=== PATIENT | female | born 1935 | race Caucasian/White ===

== ENCOUNTER 2019-04-23 19:40 | Emergency (ER) | payer OTHER ==
[2019-04-23] MEDS ORDERED: LIDOCAINE 1% MPF 30 ML VIAL ONE (20:18)
[2019-04-23] MEDS ORDERED: TETANUS & DIPHTHERIA TOX,ADULT 0.5 ML VIAL ONE (20:19)
[2019-04-23] MEDS ORDERED: IBUPROFEN 400 MG TAB ONE (20:40)
--- NOTE | 2019-04-23 20:53 | RAD REPORT ---
EXAM DESCRIPTION: RAD - Tib Fib Right - 04/23/2019 8:48 pm CLINICAL HISTORY: laceration right leg;Pain COMPARISON: No comparisons FINDINGS: Total knee arthroplasty is present. Hardware is present about the ankle. No hardware compl ication seen. No fracture apparent. No radiopaque foreign body seen.
--- NOTE | 2019-04-23 22:10 | EDPHYS ---
Physician Documentation [facility] Name: Rowan Green Age: 83 yrs Sex: Female : 1935 Arrival Date: 04/23/2019 Time: 19:50 Bed 4 Private MD: ED Physician Balaji Gomez HPI: 04/22 20:33 This 83 yrs old Female presents to ER via EMS with complaints of Laceration, pkl Fall Injury. 20:33 The patient presents with an injury, a laceration, 5 cm(s). The complaints affect the pkl right leg. Context: resulted from the patient falling, cut right leg on unknown object. Onset: The symptoms/episode began/occurred just prior to arrival, 1 hour(s) ago. Associated signs and symptoms: The patient has no apparent associated signs or symptoms. Historical: - Allergies: 20:07 PENICILLINS; jd3 20:07 Codeine; jd3 - Home Meds: 20:07 amlodipine oral [Active]; ibuprofen Oral [Active]; clopidogrel oral oral [Active]; jd3 desloratadine oral oral [Active]; Flonase Allergy Relief nasal nasal [Active]; Metformin Oral [Active]; ranitidine Oral [Active]; torsemide oral oral [Active]; Tramadol Oral [Active]; Bisacodyl Oral [Active]; pramipexole oral oral [Active]; - Immunization history:: Adult Immunizations up to date. - Social history:: Smoking status: Patient denies any tobacco usage or history of. - Immunization history: Last tetanus immunization: unknown. ROS: 20:33 Eyes: Negative for injury, pain, redness, and discharge, ENT: Negative for injury, pkl pain, and discharge, Neck: Negative for injury, pain, and swelling, Cardiovascular: Negative for chest pain, palpitations, and edema, Respiratory: Negative for shortness of breath, cough, wheezing, and pleuritic chest pain, Abdomen/GI: Negative for abdominal pain, nausea, vomiting, diarrhea, and constipation, Back: Negative for injury and pain, : Negative for injury, bleeding, discharge, and swelling, Neuro: Negative for headache, weakness, numbness, tingling, and seizure. 20:33 MS/extremity: Positive for laceration, pain, of the right leg. 20:33 Neuro: Negative for altered mental status, loss of consciousness. Exam: 21:44 Head/Face: Normocephalic, atraumatic. Eyes: Pupils equal round and reactive to light, pkl extra-ocular motions intact. Lids and lashes normal. Conjunctiva and sclera are non-icteric and not injected. Cornea within normal limits. Periorbital areas with no swelling, redness, or edema. ENT: Nares patent. No nasal discharge, no septal abnormalities noted. Tympanic membranes are normal and external auditory canals are clear. Oropharynx with no redness, swelling, or masses, exudates, or evidence of obstruction, uvula midline. Mucous membranes moist. Neck: Trachea midline, no thyromegaly or masses palpated, and no cervical lymphadenopathy. Supple, full range of motion without nuchal rigidity, or vertebral point tenderness. No Meningismus. Chest/axilla: Normal chest wall appearance and motion. Nontender with no deformity. No lesions are appreciated. Cardiovascular: Regular rate and rhythm with a normal S1 and S2. No gallops, murmurs, or rubs. Normal PMI, no JVD. No pulse deficits. Respiratory: Lungs have equal breath sounds bilaterally, clear to auscultation and percussion. No rales, rhonchi or wheezes noted. No increased work of breathing, no retractions or nasal flaring. Abdomen/GI: Soft, non-tender, with normal bowel sounds. No distension or tympany. No guarding or rebound. No evidence of tenderness throughout. Back: No spinal tenderness. No costovertebral tenderness. Full range of motion. 21:44 Musculoskeletal/extremity: Extremities: grossly normal except: noted in the right shoulder: pain, noted in the right leg: pain, laceration. 21:44 Neuro: Orientation: is normal, Mentation: is normal, Cranial nerves: grossly normal, Motor: is normal. Vital Signs: 19:54 BP 143 / 76; Pulse 90; Resp 17 S; Temp 98.5(O); Pulse Ox 98% on R/A; Weight 90.72 kg jd3 (R); Height 5 ft. 2 in. (157.48 cm) (R); Pain 8/10; 20:41 BP 113 / 71; Pulse 89; Resp 17 S; Pulse Ox 99% on R/A; Pain 8/10; jd3 21:42 BP 113 / 67; Pulse 87; Resp 17 S; Pulse Ox 99% on R/A; jd3 23:11 BP 118 / 85; Pulse 85; Resp 16 S; Pulse Ox 99% on R/A; Pain 8/10; jd3 04/23 01:02 BP 117 / 75; Pulse 89; Resp 17 S; Pulse Ox 99% on R/A; Pain 0/10; jd3 04/22 19:54 Body Mass Index 36.58 (90.72 kg, 157.48 cm) jd3 [place] Coma Score: 04/22 20:09 Eye Response: spontaneous(4). Verbal Response: oriented(5). Motor Response: obeys jd3 commands(6). Total: 15. 23:11 Eye Response: spontaneous(4). Verbal Response: oriented(5). Motor Response: obeys jd3 commands(6). Total: 15. Trauma Score (Adult): 20:09 Eye Response: spontaneous(1); Verbal Response: oriented(1); Motor Response: obeys jd3 commands(2); Systolic BP: > 89 mm Hg(4); Respiratory Rate: 10 to 29 per min(4); [place] Score: 15; Trauma Score: 12 23:11 Eye Response: spontaneous(1); Verbal Response: oriented(1); Motor Response: obeys jd3 commands(2); Systolic BP: > 89 mm Hg(4); Respiratory Rate: 10 to 29 per min(4); [place] Score: 15; Trauma Score: 12 Laceration: 21:46 Wound Repair of 5cm ( 2.0in ) subcutaneous laceration to right leg. Minimal bleeding pkl noted.. Distal neuro/vascular/tendon intact. Anesthesia: Local anesthetic administered with 8 mls of 1% lidocaine. Wound prep: Extensive cleansing by me. Skin closed with 7 3-0 Prolene using simple sutures and sterile technique. Dressed with Neosporin, 4x4's, pressure dressing. Patient tolerated well. MDM: 19:50 Patient medically screened. pkl 21:46 Data reviewed: vital signs, nurses notes, radiologic studies, plain films. pkl 04/23 00:10 Order name: CBC with Diff jd3 04/23 00:46 Order name: CBC with Automated Diff; Complete Time: 00:54 EDMS 04/22 20:11 Order name: Tib Fib Right XRAY pkl 04/22 20:58 Order name: RAD; Complete Time: 21:28 EDMS 04/22 21:29 Order name: Shoulder Right (2 View) XRAY pkl 04/22 20:22 Order name: Dressing - Wound; Complete Time: 21:40 jd3 04/22 20:22 Order name: Gloves, Sterile; Complete Time: 20:23 jd3 04/22 20:22 Order name: Setup Suture Tray; Complete Time: 20:23 jd3 Administered Medications: 20:23 Drug: Tetanus-Diphtheria Toxoid Adult 0.5 ml {Scuba Diving Teacher: Exterity. Exp: jd3 01/15/2021. Lot #: [id number]. } Route: IM; Site: left deltoid; 21:20 Follow up: Response: No adverse reaction jd3 20:39 Drug: Motrin 400 mg Route: PO; jd3 21:30 Follow up: Response: No adverse reaction jd3 21:20 Drug: Lidocaine (1 %) 1 vials {Note: given by Dr. Gomez.} Volume: 20 ml; Route: jd3 Infiltration; 21:40 Follow up: Response: No adverse reaction jd3 22:58 Drug: UltRAM 50 mg Route: PO; jd3 23:40 Follow up: Response: No adverse reaction jd3 Disposition: 04/23/19 22:09 Discharged to Home. Impression: Laceration right leg. Contusion right shoulder. S/P Fall. - Condition is Stable. - Prescriptions for Ultram 50 mg Oral Tablet - take 1 tablet by ORAL route every 6 hours As needed; 12 tablet. - Medication Reconciliation Form, Thank You Letter, Antibiotic Education, Prescription Opioid Use form. - Follow up: Private Physician; When: 7 - 10 days; Reason: Wound Recheck, Staple/Suture removal, Re-evaluation by your physician. - Problem is new. - Symptoms have improved. Signatures: Dispatcher [employer] Balaji Hendrickson MD MD pkl Davies, Jonathon, RN RN jd3 Corrections: (The following items were deleted from the chart) 04/23 01:04 04/22 22:09 04/23/2019 22:09 Discharged to Home. Impression: Laceration right leg. jd3 Contusion right shoulder. S/P Fall. Condition is Stable. Forms are Medication Reconciliation Form, Thank You Letter, Antibiotic Education, Prescription Opioid Use. Follow up: Private Physician; When: 7 - 10 days; Reason: Wound Recheck, Staple/Suture removal, Re-evaluation by your physician. Problem is new. Symptoms have improved. pkl
--- NOTE | 2019-04-23 22:10 | ER ---
Nurse's Notes [facility] Name: Rowan Green Age: 83 yrs Sex: Female : 1935 Arrival Date: 04/23/2019 Time: 19:50 Bed 4 Private MD: Diagnosis: Laceration right leg. Contusion right shoulder. S/P Fall Presentation: 04/22 19:52 Chief complaint: EMS states: "the pt reported tripping and falling today. she denies jd3 hitting her head and or any injuries other then a laceration to the right lower leg that is about 1 cm in length, but deep. we wrapped it with an occlusive dressing, but it wanted to bleed through it.". Coronavirus screen: The patient has NOT traveled to a country currently being monitored by the CDC within the last 14 days. The patient has NOT had contact with any known and/or suspected case of coronavirus. Proceed with normal triage procedures. Ebola Screen: Patient negative for fever greater than or equal to 101.5 degrees Fahrenheit, and additional compatible Ebola Virus Disease symptoms. Complicating Factors: There are no complicating factors for this patient. Initial Sepsis Screen: Does the patient meet any 2 criteria? No. Patient's initial sepsis screen is negative. Does the patient have a suspected source of infection? No. Patient's initial sepsis screen is negative. Risk Assessment: Do you want to hurt yourself or someone else? Patient reports no desire to harm self or others. 19:52 Method Of Arrival: EMS: [place] [id number] 19:52 Acuity: MARQUES 3 [facility] 20:07 Care prior to arrival: wound care. Mechanism of Injury: Fall from standing position. [facility] Trauma event details: Injury occurred in the [facility], Injury occurred: at home. Injury occurred: April 23, 2019. 20:09 Transition of care: patient was received from another setting of care (long-term care [facility] facility), [facility]. 20:10 Onset of symptoms was April 23, 2019. [facility] Trauma Activation: Alert Physician: ED Physician; Name: Jason; Notified At: 19:38; Arrived At: 19:38 Physician: General Surgeon; Name: ; Notified At: ; Arrived At: Physician: Radiology; Name: dasia dhillon; Notified At: 19:38; Arrived At: 19:38 Physician: Respiratory; Name: ; Notified At: ; Arrived At: Physician: Lab; Name: ; Notified At: ; Arrived At: Historical: - Allergies: 20:07 PENICILLINS; jd3 20:07 Codeine; jd3 - Home Meds: 20:07 amlodipine oral [Active]; ibuprofen Oral [Active]; clopidogrel oral oral [Active]; jd3 desloratadine oral oral [Active]; Flonase Allergy Relief nasal nasal [Active]; Metformin Oral [Active]; ranitidine Oral [Active]; torsemide oral oral [Active]; Tramadol Oral [Active]; Bisacodyl Oral [Active]; pramipexole oral oral [Active]; - Immunization history:: Adult Immunizations up to date. - Social history:: Smoking status: Patient denies any tobacco usage or history of. - Immunization history: Last tetanus immunization: unknown. Screenin:10 Abuse screen: Denies threats or abuse. Nutritional screening: No deficits noted. jd3 Tuberculosis screening: No symptoms or risk factors identified. Fall Risk Ambulatory Aid- None/Bed Rest/Nurse Assist (0 pts). Gait- Normal/Bed Rest/Wheelchair (0 pts) Mental Status- Oriented to own ability (0 pts). Total [place] Fall Scale indicates No Risk (0-24 pts). Primary Survey: 19:57 NO uncontrolled hemorrhage observed. A: The patient is alert. Airway: patent, No jd3 supplemental oxygen in use on arrival. Oral cavity: clear, Trachea midline. Breathing/Chest: Respiratory pattern: regular, Respiratory effort: spontaneous, Breath sounds: clear, bilaterally. Chest inspection: symmetrical rise and fall of the chest. Circulation: Heart tones present. Pulses: palpable right radial artery, right dorsalis pedis artery, left radial artery and left dorsalis pedis artery. Skin color: pink, Skin temperature: warm. Disability Alert. Exposure/Environment: All clothing and personal items were removed. Forensic evidence collection is not deemed to be indicated at this time. Items placed in patient belonging bag. There is no evidence of uncontrolled external bleeding. Obvious injury(ies) are noted at this time: laceration noted to right lower leg. A warming method has been applied: A warm blanket has been provided to the patient. 20:33 Reassessment Airway Airway Patent Oxygen No O2 Oral cavity Clear Trachea Midline jd3 Breathing/Chest Respiratory pattern Regular Respiratory effort Spontaneous Unlabored Breath sounds Clear Chest inspection Symmetrical Circulation Heart tones Present Pulses Palpable Color [place] Temperature Warm Disability Alert. Secondary Survey: 19:59 HEENT: No deficits noted. Gastrointestinal: Abdomen is soft, non-distended, Bowel jd3 sounds present in all quadrants. Palpation No deficit noted. : No signs and/or symptoms were reported regarding the genitourinary system. Musculoskeletal: Circulation, motion, and sensation intact. Range of motion: intact in all extremities. Assessment: 19:55 General: Appears in no apparent distress. uncomfortable, Behavior is calm, cooperative, jd3 appropriate for age. Pain: Complains of pain in right xie Quality of pain is described as aching, tender. Neuro: Level of Consciousness is awake, alert, obeys commands, Oriented to person, place, time, situation. EENT: No signs and/or symptoms were reported regarding the EENT system. Cardiovascular: Denies chest pain, Heart tones S1 S2 present Capillary refill < 3 seconds Patient's skin is warm and dry. Respiratory: Airway is patent Respiratory effort is even, unlabored, Respiratory pattern is regular, symmetrical, Breath sounds are clear bilaterally. Denies cough, shortness of breath. GI: No signs and/or symptoms were reported involving the gastrointestinal system. Abdomen is round non-distended, Bowel sounds present X 4 quads. Abd is soft and non tender X 4 quads. Patient currently denies abdominal pain, diarrhea, nausea, vomiting. : No signs and/or symptoms were reported regarding the genitourinary system. Derm: Skin is intact, Skin is dry, Skin is pale, Skin temperature is warm. Musculoskeletal: Circulation, motion, and sensation intact. Range of motion: intact in all extremities, Swelling present in right leg and left leg. 19:58 Reassessment: vineet bandage applied to wound. awaiting X-ray. jd3 20:11 Injury Description: Laceration sustained to right xie is clean, 2.6 to 7.5 cm long, jd3 bleeding moderately, is bleeding moderately. 20:40 Reassessment: Patient appears in no apparent distress at this time. No changes from jd3 previously documented assessment. Patient and/or family updated on plan of care and expected duration. Pain level reassessed. Patient is alert, oriented x 3, equal unlabored respirations, skin warm/dry/pink. 21:41 Reassessment: Patient appears in no apparent distress at this time. Patient and/or jd3 family updated on plan of care and expected duration. Pain level reassessed. Patient is alert, oriented x 3, equal unlabored respirations, skin warm/dry/pink. bleeding stopped with Dr. Gomez suturing. Patient states feeling better. 23:00 Reassessment: Patient appears in no apparent distress at this time. Patient and/or jd3 family updated on plan of care and expected duration. Pain level reassessed. Patient is alert, oriented x 3, equal unlabored respirations, skin warm/dry/pink. reporting continuing pain. provider notified. medicated as ordered, see MAR. dressing clean dry and intact. awaiting family for discharge back to [facility]. 23:58 Reassessment: Patient appears in no apparent distress at this time. Patient and/or jd3 family updated on plan of care and expected duration. Pain level reassessed. Patient is alert, oriented x 3, equal unlabored respirations, skin warm/dry/pink. Patient states feeling better. 04/23 00:12 Reassessment: Patient appears in no apparent distress at this time. Patient and/or jd3 family updated on plan of care and expected duration. Pain level reassessed. Patient is alert, oriented x 3, equal unlabored respirations, skin warm/dry/pink. family at bedside discussing plan of care with Dr. Gomez. new orders received. awaiting lab results before discharge. Patient states feeling better. 01:03 Reassessment: Patient appears in no apparent distress at this time. Patient and/or jd3 family updated on plan of care and expected duration. Pain level reassessed. Patient is alert, oriented x 3, equal unlabored respirations, skin warm/dry/pink. pt assisted to family's vehicle via wheelchair. Patient states feeling better. Vital Signs: 04/22 19:54 BP 143 / 76; Pulse 90; Resp 17 S; Temp 98.5(O); Pulse Ox 98% on R/A; Weight 90.72 kg jd3 (R); Height 5 ft. 2 in. (157.48 cm) (R); Pain 8/10; 20:41 BP 113 / 71; Pulse 89; Resp 17 S; Pulse Ox 99% on R/A; Pain 8/10; jd3 21:42 BP 113 / 67; Pulse 87; Resp 17 S; Pulse Ox 99% on R/A; jd3 23:11 BP 118 / 85; Pulse 85; Resp 16 S; Pulse Ox 99% on R/A; Pain 8/10; jd3 04/23 01:02 BP 117 / 75; Pulse 89; Resp 17 S; Pulse Ox 99% on R/A; Pain 0/10; jd3 03 19:54 Body Mass Index 36.58 (90.72 kg, 157.48 cm) jd3 [place] Coma Score: 04/22 20:09 Eye Response: spontaneous(4). Verbal Response: oriented(5). Motor Response: obeys jd3 commands(6). Total: 15. 23:11 Eye Response: spontaneous(4). Verbal Response: oriented(5). Motor Response: obeys jd3 commands(6). Total: 15. Trauma Score (Adult): 20:09 Eye Response: spontaneous(1); Verbal Response: oriented(1); Motor Response: obeys jd3 commands(2); Systolic BP: > 89 mm Hg(4); Respiratory Rate: 10 to 29 per min(4); [place] Score: 15; Trauma Score: 12 23:11 Eye Response: spontaneous(1); Verbal Response: oriented(1); Motor Response: obeys jd3 commands(2); Systolic BP: > 89 mm Hg(4); Respiratory Rate: 10 to 29 per min(4); [place] Score: 15; Trauma Score: 12 ED Course: 19:50 Patient arrived in ED. aa1 19:50 Balaji Gomez MD is Attending Physician. pkl 19:52 Selvin Evans RN is Primary Nurse. jd3 19:54 Triage completed. jd3 19:55 Arm band placed on. jd3 20:09 Patient maintains SpO2 saturation greater than 95% on room air. jd3 20:10 Patient has correct armband on for positive identification. Placed in gown. Bed in low jd3 position. Call light in reach. Side rails up X2. Pulse ox on. NIBP on. 20:10 Thermoregulation: warm blanket given to patient. jd3 21:20 Assist provider with laceration repair on right xie that was between 2.6 to 7.5 cm jd3 using sutures. Set up tray. Performed by Balaji Gomez MD Dressed with 4X4s, Neosporin, vineet wrap Patient tolerated well. 04/23 00:31 Initial lab(s) drawn, by me, sent to lab. jd3 00:51 Shoulder Right (2 View) XRAY In Process Unspecified. EDMS 01:02 Patient did not have IV access during this emergency room visit. jd3 Administered Medications: 04/22 20:23 Drug: Tetanus-Diphtheria Toxoid Adult 0.5 ml {Web Development Instructor: Oversi. Exp: jd3 01/15/2021. Lot #: [id number]. } Route: IM; Site: left deltoid; 21:20 Follow up: Response: No adverse reaction jd3 20:39 Drug: Motrin 400 mg Route: PO; jd3 21:30 Follow up: Response: No adverse reaction jd3 21:20 Drug: Lidocaine (1 %) 1 vials {Note: given by Dr. Gomez.} Volume: 20 ml; Route: jd3 Infiltration; 21:40 Follow up: Response: No adverse reaction jd3 22:58 Drug: UltRAM 50 mg Route: PO; jd3 23:40 Follow up: Response: No adverse reaction jd3 Intake: 04/23 01:02 PO: 200ml; Total: 200ml. jd3 Output: 01:02 Urine: 200ml (Voided); Total: 200ml. jd3 Outcome: 04/22 22:09 Discharge ordered by . huseyin 04/23 01:02 Discharged to home via wheelchair, with family. jd3 Condition: stable Discharge instructions given to patient, family, Instructed on discharge instructions, follow up and referral plans. medication usage, Demonstrated understanding of instructions, follow-up care, medications, Prescriptions given X 1. Patient's length of stay in the Emergency Department was greater than 2 hours. waiting for results.Patient's length of stay extended due to 01:04 Patient left the ED. jd3 Signatures: Dispatcher [employer] EDCT Gia Pantoja RN RN aa1 Balaji Gomez MD MD pkl Davies, Jonathon, RN RN jd3 Corrections: (The following items were deleted from the chart) 04/22 21:45 19:55 Injury Description: Laceration sustained to right xie is clean, 0.5 to 2.5 cm jd3 long, bleeding moderately, jd3 21:45 20:11 Injury Description: Laceration sustained to right xie is clean, 0.5 to 2.5 cm jd3 long, bleeding moderately, jd3 21:45 21:41 Reassessment: Patient appears in no apparent distress at this time. Patient jd3 and/or family updated on plan of care and expected duration. Pain level reassessed. Patient is alert, oriented x 3, equal unlabored respirations, skin warm/dry/pink. Patient states feeling better. jd3 23:12 23:00 Reassessment: Patient appears in no apparent distress at this time. Patient jd3 and/or family updated on plan of care and expected duration. Pain level reassessed. Patient is alert, oriented x 3, equal unlabored respirations, skin warm/dry/pink. reporting continuing pain. provider notified. medicated as ordered, see MAR. dressing clean dry and intact. jd3 04/23 00:13 04/22 19:55 Derm: Skin is intact, Skin is dry, Skin is normal, Skin temperature is warm jd3 jd3 04/23 00:13 04/22 23:58 Reassessment: Patient appears in no apparent distress at this time. No jd3 changes from previously documented assessment. Patient and/or family updated on plan of care and expected duration. Pain level reassessed. Patient is alert, oriented x 3, equal unlabored respirations, skin warm/dry/pink. jd3 04/23 00:39 04/22 23:58 Reassessment: Patient appears in no apparent distress at this time. No jd3 changes from previously documented assessment. Patient and/or family updated on plan of care and expected duration. Pain level reassessed. Patient is alert, oriented x 3, equal unlabored respirations, skin warm/dry/pink. Patient states feeling better. jd3 04/23 00:39 00:12 Reassessment: family at bedside discussing plan of care with Dr. Gomez. new orders jd3 received. jd3
[2019-04-23] MEDS ORDERED: TRAMADOL HCL 50 MG TAB ONE (23:00)
[2019-04-24 00:45] LABS: Absolute Lymphocytes (CBC) 4.3 K/uL (0.7-4.9); Basophils % 0.8 % (0-1.3); Hematocrit 33.8 % (36.0-45.0); Lymphocytes % 40.8 % (15.3-44.8); MPV 7.7 fL (7.6-11.3); RBC Red Blood Cell Count 3.89 M/uL (3.86-4.86)
[2019-04-24 01:09] VITALS: TEMP 98.5
[2019-04-24 01:10] VITALS: O2SAT 99
[2019-04-24 01:16] VITALS: BP 117/75
--- NOTE | 2019-04-24 09:09 | RAD REPORT ---
EXAM DESCRIPTION: RAD - Shoulder Right 2 View - 04/23/2019 10:09 pm CLINICAL HISTORY: Right shoulder pain FINDINGS: Postsurgical changes involve the right shoulder. Widening of the left AC joint is present. Most likely this is a post surgical change and should be co rrelated clinically. No acute fracture or dislocation noted. Bones are osteoporotic
== END 2019-04-24 01:04 | disposition home or self-care (01) ==
LOC: ER 19:40
PROC: 0JQN0ZZ Repair Right Lower Leg Subcutaneous Tissue and Fascia, Open Approach (ICD-10-PCS; principal; 2019-04-24)
DX: S81.811A Laceration without foreign body, right lower leg, initial encounter (principal); S40.011A Contusion of right shoulder, initial encounter; W19.XXXA Unspecified fall, initial encounter; Y93.9 Activity, unspecified; Y92.9 Unspecified place or not applicable; Z23 Encounter for immunization; Z88.0 Allergy status to penicillin; Z88.5 Allergy status to narcotic agent
CPT/HCPCS: 36415; 85025; 90471; 90714; 99285

== ENCOUNTER 2020-03-18 07:20 | Emergency (ER) | payer OTHER ==
--- OUTSIDE RECORDS SUMMARY | 2020-03-18 07:23 | XMS REPORT | Clinical Summary ---
:1935 Author Organization [facility] Address [address] [place] [address] Care Team Providers Name Role Phone Cuca Bland MD Primary Care Provider Allergies Active Allergy Reactions Severity Noted Date Comments Codeine Other (See Comments) 12/16/2016 Halluci nations Latex Rash Low 10/08/2017 BREAKS OUT Penicillins Anaphylaxis High 12/16/2016 Medications Medication Sig Dispensed Refills Start Date End Date Status buPROPion SR Take 200 mg by 0 Ac tive (WELLBUTRIN SR) 200 MG mouth daily. 12 hr tablet torsemide (DEMADEX) 20 Take 20 mg by 0 Active MG tablet mouth 2 (two) times a day. One in morning, second dose in evening at 1800. POTASSIUM CHLORIDE Take by mouth 2 0 Active (KLOR-CON 10 ORAL) (two) times a day. pramipexole (MIRAPEX) Take 0.125 mg by 0 Active 0.125 MG tablet mouth nightly. amLODIPine (NORVASC) 5 Take 5 mg by 0 Active mg tablet mouth daily. gabapentin (NEURONTIN) Take 300 mg by 0 Active 300 mg capsule mouth nightly. lansoprazole (PREVACID) Take 15 mg by 0 Active 15 MG capsule mouth daily. clopidogrel (PLAVIX) 75 Take 75 mg by 0 Active mg tablet mouth daily. atorvastatin (LIPITOR) Take 20 mg by 0 Active 20 MG tablet mouth daily. Default OP ins metFORMIN (GLUCOPHAGE) Take 1,000 mg by 0 Active 1,000 mg tablet mouth daily with breakfast. FOLIC Take by mouth 0 Active ACID/MULTIVIT-MIN/LUTEI daily. N (CENTRUM SILVER ORAL) desloratadine Take 5 mg by 0 Act mariela (CLARINEX) 5 mg tablet mouth daily. tamsulosin (FLOMAX) 0.4 TAKE ONE CAPSULE 7 capsule 0 8 Active mg capsule BY MOUTH DAILY FOR 7 DAYS Active Problems Problem Noted Date Kidney stones 09/23/2017 Overview: Added automatically from request for destini mclain [id number] Acute UTI (urinary tract infection) 12/27/2016 Surgical History Surgery Date Site/Laterality Comments REPLACEMENT TOTAL KNEE 02/17/1997 - 02/16/1998 ROTATOR CUFF REPAIR 02/17/2001 - Right 02/16/2002 HYSTERECTOMY 02/17/1979 - 02/17/1980 GALLBLADDER SURGERY 02/17/1981 - 02/16/1982 JOINT REPLACEMENT CATARACT EXTRACTION Bilateral EXTRACAPSULAR W/ INTRAOCULAR LENS IMPLANTATION BLADDER SURGERY US PICC LINE VASCULAR right arm INSERTION CYSTO WITH URETEROSCOPY 10/14/2017 Bilateral Procedur e: CYSTO WITH BILATERAL URETER OSCOPY, STONE EXTRACTION WITH BASKET, STENT PL ACEMENT; Surgeon: Haley bonilla MD; Location: [facility]; Service: Urology ; Laterality: Bila teral; Medical devices from this surgery are in the Implants section . Medical History Medical History Date Comments Colitis 2014 Shingles 2014 Urinary incontinence UTI (urinary tract infection) Hypertension Anticoagulated Wears glasses Wears dentures UPPER Hiatal hernia GERD (gastroesophageal reflux disease) Renal calculi PONV (postoperative nausea and vomiting) Depression Immunizations up to date Exercises rarely WALKS WITH WALKER, Ankle edema, bilateral Valadez catheter in place Family History Medical History Relation Name Comments Diabetes Brother Appendicitis Father Arthritis Mother Diabetes Mother No Known Problems Sister Relation Name Status Comments Brother Alive Father Mother Sister Alive Social History Tobacco Use Types Packs/Day Years Used Date Never Smoker Smokeless Tobacco: Never Used Alcohol Use Drinks/Week oz/Week Comments No Sex Assigned at Date Recorded Not on file Last Filed Vital Signs Not on file Plan of Treatment Health Maintenance Due Date Last Done Comments COVID-19 VACCINE (1 of 2) 1952 SHINGLES VACCINES (#1) 1986 65+ PNEUMOCOCCAL VACCINE (1 of 1 - PPSV23) 2001 INFLUENZA VACCINE 09/18/2019 Implants Implanted Type Area Furniture Decals Inspector Device Shelf Model / Identifier Expiration Serial / Date Lot Stent Uretl Universa 6fr 24cm Hydrph With Gw - [id number] Urol ogical Right: [employer] UROLOGICAL 08/07/2020 [id number] / Implanted: Qty: 1 on 10/14/2017 by Haley Cotter MD at [facility] Implants or N/A / Sets [id number] Stent Uretl Unvrsa Reprcsd 6fr 26cm Hydrphlc Ct - [id number] U rological Left: BURT UROLOGICAL 08/04/2020 [id number] / Implanted: Qty: 1 on 10/14/2017 by Haley Cotter MD at [facility] Implants or N/A / Sets [id number] Results Not on fileafter 03/18/2019 Insurance Payer Benefit Plan / Subscriber ID Effective Phone Address T ype Group Dates MEDICARE MEDICARE PART A [id number] 2001- [place], [place] Medicare AND B ent COMMERCIAL MISC MISC COMMERCIAL [id number] 2016-[facility] Commercial ent Advance Directives For more information, please contact: [phone] Type Date Recorded Patient Resident Engineer Explanati on Advance Directives, Living Will 10/08/2017 10:56 AM and Medical Power of [employer] Systems Administrator
--- NOTE | 2020-03-18 09:36 | RAD REPORT ---
EXAM DESCRIPTION: CT - CTHCSPWOC - 03/18/2020 9:12 am CLINICAL HISTORY: PAIN COMPARISON: No comparisons TECHNIQUE: Axial 5 mm thick images of the head were obtained. Axial 2 mm thick images of the cervic al spine were obtained with sagittal and coronal reconstruction images generated and reviewed. All CT scans are performed using dose optimization technique as appropriate and may include automated exposure control or mA/KV adjustment according to patient size. FINDINGS: No intracranial hemorrhage, mass, edema or acute intracranial finding. No acute cortical b ased infarction is identified. There is no cortical edema or sulcal effacement identified. Atrophy ch anges are minimal for age. Ventricles are in proportion to the amount of volume loss. Chronic ischemi c changes are present in the cerebral white matter. This is generally mild in severity. There is foca lly more pronounced attenuation decrease in the left basal ganglia and deep periventricular white mat ter of the left frontal lobe. Patchy decreased attenuation present in the brainstem and the thalami. No extra-axial fluid collections. Mastoid air cells and paranasal sinuses are clear. No globe or orbi t abnormality seen. Cervical bodies are normal in height anterior subluxation of C6 on C7 is minimal and secondary to adv anced facet joint degenerative change. Advanced degenerative change present at the dens anterior arch C1 level. Disc space narrowing is present at all levels except C2-3 No fracture or acute bony abnorm ality. Facet degenerative change and uncovertebral joint hypertrophy cause bilateral mild stenosis at C3-4, C4-5 and C5-6. Minimal foraminal encroachment at C6-7. Central canal detail is inherently limi felton. Patient is normal variant duplication of spinous process bony tissue T1-T3 level. No paraspinal mass or hematoma. IMPRESSION: No hemorrhage is present and no acute intracranial finding identifiable. Chronic ischemic changes, most notable in the left basal ganglia and deep periventricular frontal lob e region, can potentially mask nonhemorrhagic acute CVA. If an acute ischemic event is suspected to be the origin of the fall, follow-up MR imaging could be performed. Cervical spine degenerative changes are present with no acute finding identified.
--- NOTE | 2020-03-18 10:19 | ER ---
Nurse's Notes [facility] Name: Rowan Green Age: 84 yrs Sex: Female : 1935 Arrival Date: 03/18/2020 Time: 07:40 Bed 7 Private MD: Diagnosis: Acute post-traumatic headache Presentation: 03/18 07:39 Chief complaint: EMS states: Fell out of wheelchair and hit left side of head. Negative hb LOC. No obvious injuries. Takes Plavix. Coronavirus screen: At this time, the client does not indicate any symptoms associated with coronavirus-19. Ebola Screen: No symptoms or risks identified at this time. Initial Sepsis Screen: Does the patient meet any 2 criteria? No. Patient's initial sepsis screen is negative. Does the patient have a suspected source of infection? No. Patient's initial sepsis screen is negative. Onset of symptoms was March 18, 2020. 07:39 Acuity: MARQUES 4 hb 07:40 Risk Assessment: Do you want to hurt yourself or someone else? Patient reports no sv desire to harm self or others. 07:40 Method Of Arrival: EMS: [facility] sv Triage Assessment: 07:50 General: Appears in no apparent distress. Behavior is calm, cooperative. Pain: Denies hb pain. EENT: No deficits noted. No signs and/or symptoms were reported regarding the EENT system. Neuro: Level of Consciousness is awake, alert, obeys commands, Oriented to person, place, situation. Cardiovascular: Capillary refill < 3 seconds Patient's skin is warm and dry. Respiratory: Respiratory effort is even, unlabored, Respiratory pattern is regular, symmetrical. GI: No signs and/or symptoms were reported involving the gastrointestinal system. : No signs and/or symptoms were reported regarding the genitourinary system. Derm: Skin is pink, warm \T\ dry. Musculoskeletal: No signs and/or symptoms reported regarding the musculoskeletal system. Historical: - Allergies: 07:50 Codeine; hb 07:50 PENICILLINS; hb - Home Meds: 07:50 amlodipine oral [Active]; Bisacodyl Oral [Active]; clopidogrel Oral [Active]; hb desloratadine Oral [Active]; Flonase Allergy Relief nasal [Active]; Ibuprofen Oral [Active]; Metformin Oral [Active]; pramipexole Oral [Active]; Ranitidine Oral [Active]; torsemide Oral [Active]; Tramadol Oral [Active]; - PMHx: 07:50 Hypertension; Hyperlipidemia; Diabetes - NIDDM; hb - Immunization history:: Adult Immunizations up to date. - Social history:: Smoking status: Patient denies any tobacco usage or history of. Patient/guardian denies using alcohol, street drugs, The patient lives with family. - Family history:: not pertinent. Screenin:51 Abuse screen: Denies threats or abuse. Denies injuries from another. Nutritional hb screening: No deficits noted. Tuberculosis screening: No symptoms or risk factors identified. Fall Risk None identified. Assessment: 07:51 General: see triage assessment. hb 08:30 Reassessment: Patient appears in no apparent distress at this time. No changes from hb previously documented assessment. Patient and/or family updated on plan of care and expected duration. Pain level reassessed. 09:30 Reassessment: Patient appears in no apparent distress at this time. No changes from hb previously documented assessment. Patient and/or family updated on plan of care and expected duration. Pain level reassessed. 10:28 General: Pt up for discharge, [employer] notified pt ready to be picked up. hb 11:00 Reassessment: Patient appears in no apparent distress at this time. No changes from hb previously documented assessment. Patient and/or family updated on plan of care and expected duration. Pain level reassessed. Vital Signs: 07:40 BP 126 / 66; Pulse 81; Resp 18; Temp 98.6(O); Pulse Ox 98% ; sv 08:30 BP 123 / 80; Pulse 79; Resp 16; Pulse Ox 98% ; sv 09:45 BP 126 / 76; Pulse 77; Resp 16; Pulse Ox 99% on R/A; hb 10:45 BP 128 / 78; Pulse 75; Resp 17; Pulse Ox 99% on R/A; hb [place] Coma Score: 10:17 Eye Response: spontaneous(4). Verbal Response: oriented(5). Motor Response: obeys ma2 commands(6). Total: 15. 10:17 Eye Response: spontaneous(4). Verbal Response: oriented(5). Motor Response: obeys ma2 commands(6). Total: 15. ED Course: 07:40 Patient arrived in ED. sv 07:47 Dixon, Ana, RN is Primary Nurse. hb 07:48 Triage completed. hb 07:50 Arm band placed on. hb 08:10 Tong Serrato MD is Attending Physician. ma2 08:10 Patient has correct armband on for positive identification. Placed in gown. Bed in low hb position. Call light in reach. 10:07 CT Head C Spine Sent. sv 11:32 No provider procedures requiring assistance completed. Patient did not have IV access hb during this emergency room visit. Administered Medications: No medications were administered Outcome: 10:19 Discharge ordered by . ma2 11:32 Discharged to home via wheelchair. hb 11:32 Condition: stable 11:32 Discharge instructions given to patient, Instructed on discharge instructions, follow up and referral plans. Demonstrated understanding of instructions, medications. 11:33 Patient left the ED. hb Signatures: Torri Fairbanks RN RN Ana Dixon, RN RN Tong Serrato MD MD [email or web address] Corrections: (The following items were deleted from the chart) 10:08 07:40 Pulse 81bpm; Resp 18bpm; Pulse Ox 98%; Temp 98.6F Oral; sv sv
--- NOTE | 2020-03-18 10:19 | EDPHYS ---
Physician Documentation [facility] Name: Rowan Green Age: 84 yrs Sex: Female : 1935 Arrival Date: 03/18/2020 Time: 07:40 Bed 7 Private MD: ED Physician Tong Serrato HPI: 03/18 10:17 This 84 yrs old Female presents to ER via EMS with complaints of Head ma2 Injury-Adult. 10:17 The patient or guardian reports injury. The complaints affect the left hindu. Onset: ma2 The symptoms/episode began/occurred suddenly, 1 hour(s) ago. Severity of symptoms: At their worst the symptoms were mild, in the emergency department the symptoms are unchanged. The patient has not experienced similar symptoms in the past. tripped and fell, hit left side of head . Historical: - Allergies: 07:50 Codeine; hb 07:50 PENICILLINS; hb - Home Meds: 07:50 amlodipine oral [Active]; Bisacodyl Oral [Active]; clopidogrel Oral [Active]; hb desloratadine Oral [Active]; Flonase Allergy Relief nasal [Active]; Ibuprofen Oral [Active]; Metformin Oral [Active]; pramipexole Oral [Active]; Ranitidine Oral [Active]; torsemide Oral [Active]; Tramadol Oral [Active]; - PMHx: 07:50 Hypertension; Hyperlipidemia; Diabetes - NIDDM; hb - Immunization history:: Adult Immunizations up to date. - Social history:: Smoking status: Patient denies any tobacco usage or history of. Patient/guardian denies using alcohol, street drugs, The patient lives with family. - Family history:: not pertinent. ROS: 10:17 Constitutional: Negative for fever, chills, and weight loss. ma2 10:17 All other systems are negative. Exam: 10:17 Constitutional: This is a well developed, well nourished patient who is awake, alert, ma2 and in no acute distress. Head/Face: Normocephalic, atraumatic. Eyes: Pupils equal round and reactive to light, extra-ocular motions intact. Lids and lashes normal. Conjunctiva and sclera are non-icteric and not injected. Cornea within normal limits. Periorbital areas with no swelling, redness, or edema. ENT: Nares patent. No nasal discharge, no septal abnormalities noted. Tympanic membranes are normal and external auditory canals are clear. Oropharynx with no redness, swelling, or masses, exudates, or evidence of obstruction, uvula midline. Mucous membranes moist. Neck: Trachea midline, no thyromegaly or masses palpated, and no cervical lymphadenopathy. Supple, full range of motion without nuchal rigidity, or vertebral point tenderness. No Meningismus. Chest/axilla: Normal chest wall appearance and motion. Nontender with no deformity. No lesions are appreciated. Cardiovascular: Regular rate and rhythm with a normal S1 and S2. No gallops, murmurs, or rubs. Normal PMI, no JVD. No pulse deficits. Respiratory: Lungs have equal breath sounds bilaterally, clear to auscultation and percussion. No rales, rhonchi or wheezes noted. No increased work of breathing, no retractions or nasal flaring. Abdomen/GI: Soft, non-tender, with normal bowel sounds. No distension or tympany. No guarding or rebound. No evidence of tenderness throughout. Neuro: Awake and alert, GCS 15, oriented to person, place, time, and situation. Cranial nerves II-XII grossly intact. Motor strength 5/5 in all extremities. Sensory grossly intact. Cerebellar exam normal. Normal gait. Vital Signs: 07:40 BP 126 / 66; Pulse 81; Resp 18; Temp 98.6(O); Pulse Ox 98% ; sv 08:30 BP 123 / 80; Pulse 79; Resp 16; Pulse Ox 98% ; sv 09:45 BP 126 / 76; Pulse 77; Resp 16; Pulse Ox 99% on R/A; hb 10:45 BP 128 / 78; Pulse 75; Resp 17; Pulse Ox 99% on R/A; hb [place] Coma Score: 10:17 Eye Response: spontaneous(4). Verbal Response: oriented(5). Motor Response: obeys ma2 commands(6). Total: 15. 10:17 Eye Response: spontaneous(4). Verbal Response: oriented(5). Motor Response: obeys ma2 commands(6). Total: 15. MDM: 08:10 Patient medically screened. ma2 10:17 Differential diagnosis: Contusion of Intracranial bleed- Concussion. Data reviewed: ma2 vital signs, nurses notes. Counseling: I had a detailed discussion with the patient and/or guardian regarding: the historical points, exam findings, and any diagnostic results supporting the discharge/admit diagnosis, the presence of at least one elevated blood pressure reading (>120/80) during this emergency department visit, the need for outpatient follow up. Response to treatment: the patient's symptoms have markedly improved after treatment. 03/18 08:35 Order name: CT Head C Spine ma2 03/18 09:36 Order name: CT; Complete Time: 10:17 EDMS Administered Medications: No medications were administered Disposition: 03/18/20 10:19 Discharged to Home. Impression: Acute post-traumatic headache. - Condition is Stable. - Discharge Instructions: Head Injury, Adult. - Medication Reconciliation Form, Thank You Letter, Antibiotic Education, Prescription Opioid Use form. - Follow up: Private Physician; When: Tomorrow; Reason: Recheck today's complaints, Continuance of care. Signatures: Dispatcher [employer] EDMS Ana Dixon RN RN hb Alzahri, Mohammad, MD MD ma2 Corrections: (The following items were deleted from the chart) 11:33 10:19 03/18/2020 10:19 Discharged to Home. Impression: Acute post-traumatic headache. hb Condition is Stable. Forms are Medication Reconciliation Form, Thank You Letter, Antibiotic Education, Prescription Opioid Use. Follow up: Private Physician; When: Tomorrow; Reason: Recheck today's complaints, Continuance of care. ma2
[2020-03-18 11:37] VITALS: TEMP 98.6
[2020-03-18 11:39] VITALS: O2SAT 99
[2020-03-18 11:40] VITALS: BP 128/78
== END 2020-03-18 11:33 | disposition home or self-care (01) ==
LOC: ER 07:20
DX: G44.319 Acute post-traumatic headache, not intractable (principal); E11.9 Type 2 diabetes mellitus without complications; E78.5 Hyperlipidemia, unspecified; I10 Essential (primary) hypertension; Z79.84 Long term (current) use of oral hypoglycemic drugs; Z79.02 Long term (current) use of antithrombotics/antiplatelets
CPT/HCPCS: 70450; 72125; 99283

== ENCOUNTER 2020-05-18 14:45 | Emergency (ER) | payer OTHER ==
--- NOTE | 2020-05-18 15:45 | RAD REPORT ---
EXAM DESCRIPTION: CT - CTHCSPWOC - 05/18/2020 3:07 pm CLINICAL HISTORY: contusion, fall from wheelchair, head injury, headache, neck pain COMPARISON: Head C Spine Mpr Wo Con dated 03/18/2020 TECHNIQUE: Axial 5 mm thick images of the head were obtained. Axial 2 mm thick images of the cervic al spine were obtained with sagittal and coronal reconstruction images generated and reviewed. All CT scans are performed using dose optimization technique as appropriate and may include automated exposure control or mA/KV adjustment according to patient size. FINDINGS: No intracranial hemorrhage, mass, edema or acute intracranial finding. No suspicion for ac alex infarction. No cortical edema or sulcal effacement. Moderate severity atrophy and chronic ischemi c changes are present similar to comparison. Ventricles are in proportion to volume loss. Mastoid air cells and paranasal sinuses are clear. No globe or orbit abnormality seen. C2-C7 bodies are normal in height. C2- C7 alignment has not changed from earlier study. Patient has p rominent degenerative disc disease C3-4 C5-6 and C6-7. Endplate spurring and bony foraminal encroachm ent changes are present at these levels. No fracture or acute finding of the C2-C7 vertebrae. C1 ring is intact. There are advanced degenerative changes at the C1- dens level. There is slight rot ation of the C1 ring relative to the C2 body. This 2-3 mm type I rotary subluxation abnormality is ne w from February imaging. Central canal detail is inherently limited. No paraspinal mass or hematoma. IMPRESSION: Atrophy chronic ischemic changes are present with no acute intracranial finding. Advanced cervical spine degenerative changes are present. Degenerative pattern is similar to comparis on. Patient has a minimal type I rotary subluxation abnormality at the C1-C2 level.
--- NOTE | 2020-05-18 19:30 | RAD REPORT ---
EXAM DESCRIPTION: MRI - C Spine Wo Cont - 05/18/2020 5:50 pm CLINICAL HISTORY: s/p fall, neck pain, extremity weakness COMPARISON: Head C Spine Mpr Wo Con dated 05/18/2020 TECHNIQUE: Sagittal T1-weighted, T2-weighted and T2-STIR sequences were obtained as well as T2 medic sequence. FINDINGS: C2- T2 vertebrae are normal in height. Scattered fatty marrow degenerative change with no acute marrow process. C3-4, C4-5 and C5-6 significant disc space narrowing and desiccation changes no felton. There is slight anterior subluxation of C6 on C7. No fracture or acute cervical vertebral findin g through this region. Previously detailed mild atlantoaxial rotary subluxation is noted and stable from earlier study. Ther e is no hematoma, edema or other suspicious finding in the soft tissues adjacent to the C1 ring. Ther e is significant C1-bends degenerative change with thickening of the transverse ligament posterior to the dens. No paraspinal mass. No tonsillar ectopia. No suspicious finding in the skullbase. No stenosis at the C1 level. C2-3 level: Disc bulge is present along with prominent posterior ligamentous thickening. These findin gs contact but do not flatten the cord. There is no cord signal abnormality. Spinal stenosis is reduc ed to 7 mm. No significant foraminal stenosis. C3-4 level: Disc is thinned and desiccated. Posterior disc bulge and endplate spurring changes attenu ate the anterior subarachnoid space. Posterior ligamentous thickening is present. Spinal stenosis is present to 8-9 mm. Uncovertebral hypertrophy and facet hypertrophy combine for bilateral bony foramin al stenosis. C4-5 level: Minimal disc bulge. No spinal stenosis. Bilateral bony foraminal stenosis from uncoverteb ral joint hypertrophy. C5-6 level: Disc is thinned and desiccated. Anterior disc bulge and endplate spurring changes cause s yasmeen stenosis to 9-10 mm. Significant left canal bony hypertrophy and left uncovertebral hypertrophy cause significant left-sided foraminal stenosis. There is significant right foraminal stenosis from bony spurring as well. C6-7 level: Prominent disc bulge and endplate spurring changes attenuate the anterior subarachnoid sp vineet. Posterior ligamentous thickening present. Central canal is reduced to 8 mm. Bilateral uncoverteb ral joint hypertrophy and facet hypertrophy cause significant bony foraminal stenosis. C7-T1 level: Disc bulge without central spinal stenosis. No significant foraminal stenosis. No cord signal abnormality. No expansile change. IMPRESSION: Advanced cervical spondylosis changes are present with central spinal stenosis at C2-3 a nd C3-4. More mild canal stenosis changes are present detail each level in the body of the report. No fracture or acute cervical vertebral body finding C2-C7. Mild rotary subluxation C1 relative to C2 has not change from the CT study. There is no hematoma, rosa ma or significant finding in the adjacent soft tissues. No cord flattening or acute cord finding.
--- NOTE | 2020-05-18 20:04 | ER ---
Nurse's Notes [facility] Name: Rowan Green Age: 85 yrs Sex: Female : 1935 Arrival Date: 05/18/2020 Time: 14:46 Bed 5 Private MD: Diagnosis: Fall from non-moving wheelchair;Subluxation of C1/C2 cervical vertebrae Presentation: 05/18 14:53 Chief complaint: EMS states: Pt leaned over to grab a piece of cake from the floor and ss fell forward hitting her head. Pt denies pain at this time. Denies LOC. Coronavirus screen: Client denies travel out of the [place] in the last 14 days. Ebola Screen: Patient denies exposure to infectious person. Patient denies travel to an Ebola-affected area in the 21 days before illness onset. Initial Sepsis Screen: Does the patient meet any 2 criteria? No. Patient's initial sepsis screen is negative. Does the patient have a suspected source of infection? No. Patient's initial sepsis screen is negative. Risk Assessment: Do you want to hurt yourself or someone else? Patient reports no desire to harm self or others. Onset of symptoms was May 18, 2020. 14:53 Method Of Arrival: EMS: [facility] 14:53 Acuity: MARQUES 4 ss Historical: - Allergies: 14:59 Codeine; ss 14:59 PENICILLINS; ss - Home Meds: 21:52 torsemide Oral [Active]; Ranitidine Oral [Active]; pramipexole Oral [Active]; Metformin sf Oral [Active]; Ibuprofen Oral [Active]; Flonase Allergy Relief nasal [Active]; desloratadine Oral [Active]; clopidogrel Oral [Active]; Bisacodyl Oral [Active]; amlodipine oral [Active]; Tramadol Oral [Active]; - PMHx: 14:59 Diabetes - NIDDM; Hyperlipidemia; Hypertension; ss - Immunization history:: Adult Immunizations up to date. - Social history:: Smoking status: Patient denies any tobacco usage or history of. Screenin:59 Abuse screen: Denies threats or abuse. Denies injuries from another. Nutritional ss screening: No deficits noted. Tuberculosis screening: Never had TB. Fall Risk None identified. Assessment: 14:59 General: Appears in no apparent distress. comfortable, Behavior is calm, cooperative, ss Denies fever, feeling ill, fatigue, chills. Pain: Denies pain. Neuro: Level of Consciousness is awake, alert, obeys commands, Oriented to person, place, time, situation. Neuro: Denies weakness dizziness, paresthesias numbness headache. Cardiovascular: Capillary refill < 3 seconds is brisk in bilateral fingers Patient's skin is warm and dry. Respiratory: Airway is patent Respiratory effort is even, unlabored, Respiratory pattern is regular, symmetrical, Denies cough, shortness of breath pain with respiration, pain with cough, pain with movement. GI: Patient currently denies abdominal pain, nausea, vomiting. EENT: Nares are clear Oral mucosa is moist. Derm: Skin is intact, is fragile, is thin, Skin is dry, Skin is pink, warm \\T\\ dry. normal. 15:15 Reassessment: Pt back from CT. ss 16:04 Reassessment: Patient appears in no apparent distress at this time. Patient and/or ss family updated on plan of care and expected duration. Pain level reassessed. Patient is alert, oriented x 3, equal unlabored respirations, skin warm/dry/pink. Neuro: Level of Consciousness is awake, alert, obeys commands. 16:05 Reassessment: c- collar applied. Awaiting for MRI to be obtained PT denies pain. ss 17:12 Reassessment: Pt to CT via stretcher. hb 18:45 Reassessment: Patient appears in no apparent distress at this time. Patient and/or hb family updated on plan of care and expected duration. Pain level reassessed. Patient is alert, oriented x 3, equal unlabored respirations, skin warm/dry/pink. 19:00 Reassessment: PT back from MRI, awaiting results. ss 20:10 General: Appears in no apparent distress. comfortable, Behavior is calm, cooperative. sf Pain: Denies pain. Neuro: Level of Consciousness is awake, alert, Oriented to person, place, time, situation, Denies weakness dizziness, paresthesias numbness headache. Cardiovascular: No deficits noted. Capillary refill Patient's skin is warm and dry. Respiratory: No deficits noted. Airway is patent Respiratory effort is even, unlabored, Respiratory pattern is regular, symmetrical. GI: No signs and/or symptoms were reported involving the gastrointestinal system. EENT:. Derm: Skin is pink, warm \\T\\ dry. Musculoskeletal: c-collar in place, fitted well, denies pain. 20:32 Reassessment: Given sandwich and water per order. sf 21:49 Reassessment: Patient appears in no apparent distress at this time. No changes from sf previously documented assessment. Patient and/or family updated on plan of care and expected duration. Pain level reassessed. Patient is alert, oriented x 3, equal unlabored respirations, skin warm/dry/pink. Patient reports sandwich is not very good. Request to be repositioned in bed, repositioned patient. 22:39 Reassessment: Patient is alert, oriented x 3, equal unlabored respirations, skin bb warm/dry/pink. pt eating sandwich. Pt verbalized understanding of and agrees to plan of care discharge instructions given. [facility]. 22:43 Reassessment: spoke to [facility] staff who states they do not have transportation until bb tomorrow but will talk to their "boss". 23:00 Reassessment: spoke to [facility] staff again who states they left a message for the bb pt's daughter and that they cannot make a decision for transport with out speaking to the daughter. 05/19 00:18 Reassessment: Patient appears in no apparent distress at this time. No changes from sf previously documented assessment. Patient and/or family updated on plan of care and expected duration. Pain level reassessed. Patient is alert, oriented x 3, equal unlabored respirations, skin warm/dry/pink. Report given to [facility] for transport back to living facility. Vital Signs: 05/18 14:53 BP 119 / 74; Pulse 87; Resp 16; Temp 97.4; Pulse Ox 100% ; Pain 0/10; ss 16:05 BP 112 / 67; Pulse 84; Resp 17; Pulse Ox 100% on R/A; Pain 0/10; ss 17:00 BP 136 / 86; Pulse 80; Resp 17; Pulse Ox 99% on R/A; hb 19:18 BP 122 / 75; Pulse 82; Resp 16; Pulse Ox 98% on R/A; Pain 0/10; ss 20:00 BP 111 / 74; Pulse 80; Resp 16; Pulse Ox 100% ; sf 20:45 BP 127 / 71; Pulse 85; Resp 16; Pulse Ox 98% ; sf 21:23 Weight 80 kg; mw2 21:30 BP 125 / 74; Pulse 90; Resp 16; Pulse Ox 98% ; sf 22:38 BP 120 / 80; Pulse 86; Resp 18 S; Pulse Ox 100% on R/A; Pain 0/10; bb 05/19 00:11 BP 126 / 88; Pulse 83; Resp 16; Pulse Ox 100% ; sf ED Course: 05/18 14:46 Patient arrived in ED. em1 14:47 Prashanth Huff PA is PHCP. cp 14:47 Teddy Barrios MD is Attending Physician. cp 14:51 Jody Page, MARTÍNEZ is Primary Nurse. ss 14:57 Triage completed. ss 14:59 Arm band placed on right wrist. ss 14:59 Patient has correct armband on for positive identification. Bed in low position. Call ss light in reach. Pulse ox on. NIBP on. 15:07 CT Head C Spine In Process Unspecified. EDMS 17:37 C Spine Wo Cont In Process Unspecified. EDMS 19:24 Primary Nurse role handed off by Jody Page, MARTÍNEZ sf 19:24 Aly Evans RN is Primary Nurse. sf 20:06 initiated a transfer with Paz from [facility]. mw2 20:30 COVID swab sent to lab. sf 20:51 [facility] emergency department denied due to capacity. mw2 21:21 initiated a transfer with Katina from [facility] Transfer [place]. mw2 21:50 transfer transportation to receiving facility. sf 21:52 No provider procedures requiring assistance completed. Patient did not have IV access sf during this emergency room visit. Administered Medications: 15:10 Not Given (Patient Refused): Tylenol 650 mg PO once ss Outcome: 20:03 ER care complete, transfer ordered by . cp 22:26 Discharge ordered by . cp 05/19 00:19 Discharged to home EMS sf Condition: stable Discharge instructions given to patient, Instructed on discharge instructions, follow up and referral plans. c-collar use Demonstrated understanding of instructions, follow-up care, c-collar use 00:20 Patient left the ED. sf Signatures: Dispatcher [employer] EDMS Merline Kaba RN RN bb Martinez, Eric em1 Jody Page RN RN Prashanth Huff PA PA cp Baxter, Heather, RN RN [facility] Aly Evans, RN RN
--- NOTE | 2020-05-18 20:04 | EDPHYS ---
Physician Documentation [facility] Name: Rowan Green Age: 85 yrs Sex: Female : 1935 Arrival Date: 05/18/2020 Time: 14:46 Bed 5 Private MD: ED Physician Teddy Barrios HPI: 05/18 15:00 This 85 yrs old Female presents to ER via EMS with complaints of Fall Injury. cp 15:00 Details of fall: The patient fell from seated position, out of a wheelchair, and struck cp a tile surface. Onset: The symptoms/episode began/occurred just prior to arrival. Associated injuries: The patient sustained injury to the head, contusion, swelling, tenderness. No reported LOC by patient and/or EMS. Patient takes daily Plavix. Historical: - Allergies: 14:59 Codeine; ss 14:59 PENICILLINS; ss - Home Meds: 21:52 torsemide Oral [Active]; Ranitidine Oral [Active]; pramipexole Oral [Active]; Metformin sf Oral [Active]; Ibuprofen Oral [Active]; Flonase Allergy Relief nasal [Active]; desloratadine Oral [Active]; clopidogrel Oral [Active]; Bisacodyl Oral [Active]; amlodipine oral [Active]; Tramadol Oral [Active]; - PMHx: 14:59 Diabetes - NIDDM; Hyperlipidemia; Hypertension; ss - Immunization history:: Adult Immunizations up to date. - Social history:: Smoking status: Patient denies any tobacco usage or history of. ROS: 15:03 Eyes: Negative for injury, pain, redness, and discharge. cp 15:03 Constitutional: Negative for body aches, chills, fever. 15:03 Neck: Negative for stiffness. 15:03 Abdomen/GI: Negative for nausea and vomiting. 15:03 Neuro: Negative for altered mental status, loss of consciousness, syncope, weakness. 15:03 All other systems are negative. Exam: 15:03 Constitutional: The patient appears in no acute distress, alert, awake, cp non-diaphoretic, non-toxic, well developed, well nourished. 15:03 Head/face: Noted is swelling, that is mild, of the right frontal area, tenderness, that is mild, of the right frontal area. 15:03 Eyes: Periorbital structures: appear normal, Pupils: equal, round, and reactive to light and accomodation, Extraocular movements: intact throughout, Lids and lashes: appear normal, bilaterally. 15:03 ENT: External ear(s): are unremarkable, Nose: is normal, Mouth: Lips: moist, Oral mucosa: moist, Posterior pharynx: Airway: no evidence of obstruction, patent. 15:03 Neck: C-spine: vertebral tenderness, is not appreciated, crepitus, is not appreciated, ROM/movement: is normal, is supple, without pain, no range of motions limitations. 15:03 Chest/axilla: Inspection: normal. 15:03 Cardiovascular: Rate: normal. 15:03 Respiratory: the patient does not display signs of respiratory distress, Respirations: normal, no use of accessory muscles, no retractions, labored breathing, is not present. 15:03 Abdomen/GI: Exam negative for discomfort, distension, guarding, Inspection: abdomen appears normal. 15:05 Neuro: Orientation: no acute changes, per EMS, Mentation: able to follow commands, cp Motor: moves all fours, strength is 5/5 in the right arm and left arm, moves bilateral upper extremities with no restrictions, Sensation: no obvious gross deficits. Vital Signs: 14:53 BP 119 / 74; Pulse 87; Resp 16; Temp 97.4; Pulse Ox 100% ; Pain 0/10; ss 16:05 BP 112 / 67; Pulse 84; Resp 17; Pulse Ox 100% on R/A; Pain 0/10; ss 17:00 BP 136 / 86; Pulse 80; Resp 17; Pulse Ox 99% on R/A; hb 19:18 BP 122 / 75; Pulse 82; Resp 16; Pulse Ox 98% on R/A; Pain 0/10; ss 20:00 BP 111 / 74; Pulse 80; Resp 16; Pulse Ox 100% ; sf 20:45 BP 127 / 71; Pulse 85; Resp 16; Pulse Ox 98% ; sf 21:23 Weight 80 kg; mw2 21:30 BP 125 / 74; Pulse 90; Resp 16; Pulse Ox 98% ; sf 22:38 BP 120 / 80; Pulse 86; Resp 18 S; Pulse Ox 100% on R/A; Pain 0/10; bb 05/19 00:11 BP 126 / 88; Pulse 83; Resp 16; Pulse Ox 100% ; sf MDM: 05/18 14:53 Patient medically screened. 22:19 Physician consultation: was contacted at 22:20, regarding consult, patient's condition, spoke with neurosurgeon DR Petersen, reports patient can be discharged back to correction in hard collar for support and f/u in his office next week. 22:25 Data reviewed: vital signs, nurses notes, radiologic studies, CT scan, MRI. 22:25 Counseling: I had a detailed discussion with the patient and/or guardian regarding: the cp historical points, exam findings, and any diagnostic results supporting the discharge/admit diagnosis, radiology results, the need for outpatient follow up, a neurosurgeon, to return to the emergency department if symptoms worsen or persist or if there are any questions or concerns that arise at home. Response to treatment: the patient's symptoms have markedly improved after treatment, and as a result, I will discharge patient. 05/18 20:37 Order name: Glucose, Ancillary Testing [facility] 05/18 14:48 Order name: CT Head C Spine; Complete Time: 15:48 05/18 22:19 Order name: SARS-COV-2 RT PCR [facility] 05/18 16:53 Order name: C Spine Wo Cont; Complete Time: 19:34 [facility] 05/18 19:41 Order name: Diet Ada 1800 Cristofer; Complete Time: 19:42 05/18 20:30 Order name: Finger Stick; Complete Time: 20:30 sf Administered Medications: 15:10 Not Given (Patient Refused): Tylenol 650 mg PO once ss Disposition: 22:30 Chart complete. 05/19 08:19 Co-signature as Attending Physician, Teddy Barrios MD I agree with the assessment and kdr plan of care. Disposition: 05/18/20 22:26 Discharged to Home. Impression: Fall from non-moving wheelchair, Subluxation of C1/C2 cervical vertebrae. - Condition is Stable. - Discharge Instructions: Cervical Subluxation. - Medication Reconciliation Form, Thank You Letter, Antibiotic Education, Prescription Opioid Use, SBAR form form. - Follow up: Private Physician; When: DR Fredrick Petersen \T\[phone]; Reason: next week for office follow-up. - Problem is new. - Symptoms have improved. - Notes: Patient to remain in hard collar and follow-up with neurosurgeon DR Fredrick Petersen next week Signatures: Dispatcher [employer] EDMI Teddy Barrios MD MD [facility] Jody Page RN RN ss Prashanth Huff PA PA cp Aly Evans RN RN sf Corrections: (The following items were deleted from the chart) 05/18 16:18 16:02 C Spine W/ Con ordered. EDMS EDMS 16:57 16:24 MRA Neck Without Cont ordered. EDMS EDMS 19:56 15:05 Neuro: Orientation: no acute changes, per EMS, Mentation: able to follow cp commands, Motor: strength is 5/5 in the right arm and left arm, moves bilateral upper extremities with no restrictions, Sensation: no obvious gross deficits, cp 21:22 20:13 CORONAVIRUS+MR.LAB.BRZ ordered. EDMI EDMS 22:25 20:03 05/18/2020 20:03 Transfer ordered to [facility]. Diagnosis is Fall cp from non-moving wheelchair; Subluxation of C1/C2 cervical vertebrae. Reason for transfer: Higher level of care. Accepting physician is Doctor. Condition is Stable. Problem is new. Symptoms have improved. cp 05/19 00:20 05/18 22:26 05/18/2020 22:26 Discharged to Home. Impression: Fall from non-moving sf wheelchair; Subluxation of C1/C2 cervical vertebrae. Condition is Stable. Forms are Medication Reconciliation Form, Thank You Letter, Antibiotic Education, Prescription Opioid Use. Follow up: Private Physician; When: DR Fredrick Petersen \T\[phone]; Reason: next week for office follow-up. Problem is new. Symptoms have improved. cp
[2020-05-19 19:48] VITALS: TEMP 97.4
[2020-05-19 20:09] VITALS: O2SAT 100
[2020-05-19 20:10] VITALS: BP 126/88
== END 2020-05-19 00:20 | disposition home or self-care (01) ==
LOC: ER 14:45
DX: S13.120A Subluxation of C1/C2 cervical vertebrae, initial encounter (principal); W05.0XXA Fall from non-moving wheelchair, initial encounter; Y93.9 Activity, unspecified; Y92.9 Unspecified place or not applicable; Z20.822 Contact with and (suspected) exposure to COVID-19; Z79.01 Long term (current) use of anticoagulants; Z88.0 Allergy status to penicillin; Z88.5 Allergy status to narcotic agent; I10 Essential (primary) hypertension; E78.5 Hyperlipidemia, unspecified; E11.9 Type 2 diabetes mellitus without complications
CPT/HCPCS: 82947; 70450; 72125; 72141; 99284; U0003

== ENCOUNTER 2020-06-10 04:55 | Inpatient (IN) | payer OTHER ==
[2020-06-10 05:24] LABS: Absolute Lymphocytes (CBC) 2.8 K/uL (0.7-4.9); Basophils % 0.4 % (0-1.3); Hematocrit 36.7 % (36.0-45.0); MPV 7.4 fL (7.6-11.3); RBC Red Blood Cell Count 4.21 M/uL (3.86-4.86)
[2020-06-10] MEDS ORDERED: ONDANSETRON 4 MG/2 ML VIAL ONE (05:29)
[2020-06-10] MEDS ORDERED: MORPHINE 4 MG/ML SYR ONE (05:29)
[2020-06-10 05:35] LABS: Protime INR 0.92
[2020-06-10 05:53] LABS: ALT/SGPT 25 U/L (12-78); AST/SGOT 20 U/L (15-37); Albumin 3.6 g/dL (3.4-5.0); Alkaline Phosphatase 91 U/L (45-117); BUN Blood Urea Nitrogen 18 mg/dL (7-18); Bicarbonate 26 mmol/L (21-32); Bilirubin Direct < 0.1 mg/dL (0-0.2); Bilirubin Total 0.3 mg/dL (0.2-1.0); Glucose Level 102 mg/dL (74-106); Potassium 4.2 mmol/L (3.5-5.1); Protein, Total 7.8 g/dL (6.4-8.2); Sodium Level 139 mmol/L (136-145); Troponin (Emerg Dept Use Only) < 0.02 ng/mL (0.0-0.045)
[2020-06-10] MEDS ORDERED: NA CHLORIDE 0.9% 1,000 ML ONE ×2 (06:45→12:22)
--- NOTE | 2020-06-10 06:55 | EDPHYS ---
Physician Documentation [facility] Name: Rowan Green Age: 85 yrs Sex: Female : 1935 Arrival Date: 06/10/2020 Time: 05:00 Bed 15 Private MD: ED Physician Lauro Gillis HPI: 06/10 05:11 This 85 yrs old Female presents to ER via Unassigned with complaints of Hip mh7 Injury, Fall Injury. 05:11 Details of fall: The patient fell from seated position, out of a wheelchair. Onset: The mh7 symptoms/episode began/occurred this morning, today. Associated injuries: The patient sustained right hip, decreased range of motion, painful injury. Severity of symptoms: At their worst the symptoms were moderate, earlier today, in the emergency department the symptoms are unchanged, despite EMS interventions. 05:56 Sent from care facility due to right hip pain after falling out of wheel chair this mh7 morning.. Historical: - Allergies: 05:23 PENICILLINS; jm8 - Home Meds: 06:18 amlodipine oral [Active]; Bisacodyl Oral [Active]; clopidogrel Oral [Active]; jm8 desloratadine Oral [Active]; Flonase Allergy Relief nasal [Active]; Ibuprofen Oral [Active]; Metformin Oral [Active]; pramipexole Oral [Active]; Ranitidine Oral [Active]; torsemide Oral [Active]; Tramadol Oral [Active]; - PMHx: 05:25 Diabetes - NIDDM; Hyperlipidemia; Hypertension; CHF; Arthritis; jm8 - Immunization history:: Adult Immunizations up to date. - Social history:: Smoking status: unknown. - Immunization history: Last tetanus immunization: unknown. ROS: 05:11 Constitutional: Negative for fever, chills, and weight loss, Eyes: Negative for injury, mh7 pain, redness, and discharge, ENT: Negative for injury, pain, and discharge, Neck: Negative for injury, pain, and swelling, Cardiovascular: Negative for chest pain, palpitations, and edema, Respiratory: Negative for shortness of breath, cough, wheezing, and pleuritic chest pain, Abdomen/GI: Negative for abdominal pain, nausea, vomiting, diarrhea, and constipation, Back: Negative for injury and pain, : Negative for injury, bleeding, discharge, and swelling, Skin: Negative for injury, rash, and discoloration, Neuro: Negative for headache, weakness, numbness, tingling, and seizure, Psych: Negative for depression, anxiety, suicide ideation, homicidal ideation, and hallucinations, Allergy/Immunology: Negative for hives, rash, and allergies, Endocrine: Negative for neck swelling, polydipsia, polyuria, polyphagia, and marked weight changes, Hematologic/Lymphatic: Negative for swollen nodes, abnormal bleeding, and unusual bruising. Exam: 05:11 Head/Face: Normocephalic, atraumatic. Eyes: Pupils equal round and reactive to light, mh7 extra-ocular motions intact. Lids and lashes normal. Conjunctiva and sclera are non-icteric and not injected. Cornea within normal limits. Periorbital areas with no swelling, redness, or edema. Neck: Trachea midline, no thyromegaly or masses palpated, and no cervical lymphadenopathy. Supple, full range of motion without nuchal rigidity, or vertebral point tenderness. No Meningismus. 05:11 Constitutional: The patient appears in no acute distress, alert, awake, uncomfortable. 05:42 Chest/axilla: Normal chest wall appearance and motion. Nontender with no deformity. mh7 No lesions are appreciated. Cardiovascular: Regular rate and rhythm with a normal S1 and S2. No gallops, murmurs, or rubs. Normal PMI, no JVD. No pulse deficits. Respiratory: Lungs have equal breath sounds bilaterally, clear to auscultation and percussion. No rales, rhonchi or wheezes noted. No increased work of breathing, no retractions or nasal flaring. Abdomen/GI: Soft, non-tender, with normal bowel sounds. No distension or tympany. No guarding or rebound. No evidence of tenderness throughout. Back: No spinal tenderness. No costovertebral tenderness. Full range of motion. 05:42 Skin: Warm, dry with normal turgor. Normal color with no rashes, no lesions, and no evidence of cellulitis. Neuro: Awake and alert, GCS 15, oriented to person, place, time, and situation. Cranial nerves II-XII grossly intact. Motor strength 5/5 in all extremities. Sensory grossly intact. Cerebellar exam normal. Normal gait. Psych: Awake, alert, with orientation to person, place and time. Behavior, mood, and affect are within normal limits. 05:42 Musculoskeletal/extremity: Extremities: noted in the right hip: decreased ROM, tenderness, ROM: limited active range of motion, in the right hip, limited passive range of motion, in the right hip, Circulation is intact in all extremities. Pulses: are normal with no appreciated deficits, Perfusion: the patient is normally perfused throughout, Perfusion: the extremity is normally perfused throughout, Sensation intact. Compartment Syndrome exam of affected extremity: is normal. no numbness, no tingling, no sensation deficit, no palor, no weak pulses, Joints: the right hip displays limited range of motion, pain at rest, tenderness, Weight bearing: is unable to bear weight, Tendon exam: specific tendon testing normal through active and passive range of motion Calves: are non-tender, have equal circumference. Vital Signs: 05:26 BP 119 / 84; Pulse 84; Resp 16; Pulse Ox 99% on R/A; jm8 05:42 Temp 97.8; Weight 58.97 kg; Height 5 ft. 2 in. (157.48 cm) (R); jm8 07:07 BP 115 / 82; Pulse 88; Resp 16; Pulse Ox 97% on R/A; jm8 07:37 BP 119 / 72; Pulse 81; Resp 16; Pulse Ox 98% on R/A; ll1 09:52 BP 136 / 73; Pulse 79; Resp 16; Pulse Ox 99% ; ll1 05:42 Body Mass Index 23.78 (58.97 kg, 157.48 cm) jm8 [place] Coma Score: 05:28 Eye Response: spontaneous(4). Verbal Response: oriented(5). Motor Response: obeys jm8 commands(6). Total: 15. Trauma Score (Adult): 05:28 Eye Response: spontaneous(1); Verbal Response: oriented(1); Motor Response: obeys jm8 commands(2); Systolic BP: > 89 mm Hg(4); Respiratory Rate: 10 to 29 per min(4); Dorothea Score: 15; Trauma Score: 12 MDM: 06:51 Differential diagnosis: abrasion, closed head injury, contusion, fracture. Data [facility] reviewed: vital signs, nurses notes, EMS record, old medical records, lab test result(s), cardiac enzymes, CBC, electrolytes, EKG, radiologic studies, CT scan, plain films. Data interpreted: Pulse oximetry: on room air is 99 %. Interpretation: normal. Counseling: I had a detailed discussion with the patient and/or guardian regarding: the historical points, exam findings, and any diagnostic results supporting the discharge/admit diagnosis, lab results, radiology results, the need for further work-up and treatment in the hospital. Response to treatment: the patient's symptoms have mildly improved after treatment. Physician consultation: Beau Jose MD was contacted at 06:47, regarding patient's condition, and will see patient in inpatient room. 06:51 Physician consultation: would like admission per Dr. Tong Mcgarry MD. [facility] 06:54 Patient medically screened. [facility] 06/10 05:03 Order name: Basic Metabolic Panel; Complete Time: 05:54 [facility] 06/10 05:03 Order name: CBC with Diff; Complete Time: 05:54 [facility] 06/10 05:03 Order name: Type And Screen [facility] 06/10 05:03 Order name: LFT's; Complete Time: 05:54 [facility] 06/10 05:03 Order name: Protime (+inr); Complete Time: 06:12 [facility] 06/10 05:03 Order name: Ptt, Activated; Complete Time: 06:12 [facility] 06/10 05:03 Order name: XRAY Chest (1 view) [facility] 06/10 05:03 Order name: XRAY Pelvis [facility] 06/10 05:03 Order name: CT Head C Spine [facility] 06/10 05:03 Order name: Troponin (emerg Dept Use Only); Complete Time: 05:54 [facility] 06/10 06:56 Order name: COVID-19 : Document "Date of Symptom Onset" if Symptomatic. eb 06/10 07:02 Order name: ABO/RH no charge [facility] 06/10 07:31 Order name: Urine Dipstick-Ancillary [facility] 06/10 09:13 Order name: SARS-COV-2 RT PCR [facility] 06/10 05:03 Order name: Labs collected and sent; Complete Time: 05:33 [facility] 06/10 05:03 Order name: EKG - Nurse/Tech; Complete Time: 06:02 [facility] 06/10 05:03 Order name: Hip Right 2 View XRAY [facility] 06/10 07:58 Order name: CONS Physician Consult [facility] 06/10 07:58 Order name: NPO EDNH Administered Medications: 05:14 Drug: morphine 4 mg Route: IVP; Site: left antecubital; 8 06:03 Follow up: Response: No adverse reaction; Pain is decreased jm8 13:14 Follow up: Response: No adverse reaction vg1 05:15 Drug: Zofran (Ondansetron) 4 mg Route: IVP; Site: left antecubital; 8 06:02 Follow up: Response: No adverse reaction; Nausea is decreased jm8 13:14 Follow up: Response: No adverse reaction vg1 05:15 Drug: NS 0.9% 500 ml Route: IV; Rate: bolus; Site: left antecubital; jm8 13:14 Follow up: IV Status: Completed infusion; IV Intake: 500ml vg1 Disposition: 06/10/20 06:54 Hospitalization ordered by Tong Mcgarry for Inpatient Admission. Preliminary diagnosis are Right Femoral Neck Fracture, Fall. - Bed requested for Telemetry/MedSurg (Inpatient). - Status is Inpatient Admission. eb - Condition is Stable. - Problem is new. - Symptoms have improved. Signatures: Dispatcher [employer] EDNH Kavya Henderson RN RN Eliza Galaviz Maurice, MD MD 7 Fran Page RN RN jmAlexa Nash RN vg1 Corrections: (The following items were deleted from the chart) 12:37 06:54 Hospitalization Ordered by Tong Mcgarry MD for Inpatient Admission. Preliminary dw diagnosis is Right Femoral Neck Fracture; Fall. Bed requested for Telemetry/MedSurg (Inpatient). Status is Inpatient Admission. Condition is Stable. Problem is new. Symptoms have improved. 7 13:48 12:37 06/10/2020 06:54 Hospitalization Ordered by Tong Mcgarry MD for Inpatient eb Admission. Preliminary diagnosis is Right Femoral Neck Fracture; Fall. Bed requested for Telemetry/MedSurg (Inpatient). Status is Inpatient Admission. Condition is Stable. Problem is new. Symptoms have improved. dw
--- NOTE | 2020-06-10 06:55 | ER ---
Nurse's Notes [facility] Name: Rowan Green Age: 85 yrs Sex: Female : 1935 Arrival Date: 06/10/2020 Time: 05:00 Bed 15 Private MD: Diagnosis: Right Femoral Neck Fracture;Fall Presentation: 06/10 05:00 Chief complaint: EMS states: Fall out of a wheelchair, complains of right hip pain, sf denies LOC. Mellorl Varunamy staff report her being in wheelchair at 0200 round and found her on floor at 0430 round, unknown length of time on fall. Care prior to arrival: None. Mechanism of Injury: Fall out of chair approximately 3 feet. Trauma event details: Injury occurred in the [facility], Injury occurred: in an institution. Injury occurred: June 10, 2020. 05:00 Acuity: MARQUES 3 sf 05:00 Method Of Arrival: EMS: [facility] sf 05:29 Coronavirus screen: Client denies travel out of the [place] in the last 14 days. Ebola jm8 Screen: Patient negative for fever greater than or equal to 101.5 degrees Fahrenheit, and additional compatible Ebola Virus Disease symptoms Patient denies exposure to infectious person. Patient denies travel to an Ebola-affected area in the 21 days before illness onset. Initial Sepsis Screen: Does the patient meet any 2 criteria? No. Patient's initial sepsis screen is negative. Does the patient have a suspected source of infection? No. Patient's initial sepsis screen is negative. Risk Assessment: Do you want to hurt yourself or someone else? Patient reports no desire to harm self or others. Onset of symptoms was June 10, 2020 at 04:30. Transition of care: patient was received from another setting of care (long-term care facility), [facility]. Trauma Activation: Alert Physician: ED Physician; Name: henry; Notified At: 05:00; Arrived At: 05:00 Physician: General Surgeon; Name: N/A; Notified At: 05:00; Arrived At: N/A Physician: Radiology; Name: TOSHA; Notified At: 05:00; Arrived At: 05:08 Physician: Respiratory; Name: N/A; Notified At: 05:00; Arrived At: Specialty not needed Physician: Lab; Name: N/A; Notified At: 05:00; Arrived At: Specialty not needed Historical: - Allergies: 05:23 PENICILLINS; jm8 - Home Meds: 06:18 amlodipine oral [Active]; Bisacodyl Oral [Active]; clopidogrel Oral [Active]; jm8 desloratadine Oral [Active]; Flonase Allergy Relief nasal [Active]; Ibuprofen Oral [Active]; Metformin Oral [Active]; pramipexole Oral [Active]; Ranitidine Oral [Active]; torsemide Oral [Active]; Tramadol Oral [Active]; - PMHx: 05:25 Diabetes - NIDDM; Hyperlipidemia; Hypertension; CHF; Arthritis; jm8 - Immunization history:: Adult Immunizations up to date. - Social history:: Smoking status: unknown. - Immunization history: Last tetanus immunization: unknown. Screenin:23 Abuse screen: Denies threats or abuse. Denies injuries from another. Nutritional jm8 screening: No deficits noted. Tuberculosis screening: No symptoms or risk factors identified. Fall Risk None identified. Primary Survey: 05:27 NO uncontrolled hemorrhage observed. A: The patient is alert. Airway: patent, No jm8 supplemental oxygen in use on arrival. Breathing/Chest: Respiratory pattern: regular, Respiratory effort: unlabored, labored, Breath sounds: clear, bilaterally. Circulation: Cardiac rhythm: sinus rhythm. Disability Alert. Exposure/Environment: All clothing and personal items were removed. Forensic evidence collection is not deemed to be indicated at this time. Items placed in patient belonging bag. There is no evidence of uncontrolled external bleeding. No obvious injuries are noted at this time. A warming method has been applied: A warm blanket has been provided to the patient. 06:06 Reassessment Airway Airway Patent Oxygen No O2 Trachea Midline Breathing/Chest jm8 Respiratory pattern Regular Respiratory effort Spontaneous Unlabored Breath sounds Clear Chest inspection Symmetrical Circulation Heart rhythm Sinus rhythm Heart tones Present Pulses Palpable Color [place] Disability Alert. Assessment: 05:16 General: Appears distressed, uncomfortable, Behavior is agitated, crying, fussy. Pain: jm8 Complains of pain in right hip Pain currently is 10 out of 10 on a pain scale. Pain began 2 hours ago. Noted to be crying, grimacing, guarding, moaning, Also complains of no other associated symptoms. Neuro: No deficits noted. Level of Consciousness is awake, alert, obeys commands, Oriented to person, place, time. Cardiovascular: No deficits noted. Respiratory: No deficits noted. Respiratory: Airway is patent Trachea midline Respiratory effort is even, labored. GI: No deficits noted. : No deficits noted. EENT: No deficits noted. Derm: No deficits noted. Musculoskeletal: Bony deformity noted of right hip Reports pain in right hip since between 0200 and 0400. Pain is 10 out of 10 on a pain scale. 07:00 Reassessment: No changes from previously documented assessment. Patient and/or family ll1 updated on plan of care and expected duration. Pain level reassessed. 08:00 Reassessment: No changes from previously documented assessment. Patient and/or family ll1 updated on plan of care and expected duration. Pain level reassessed. 09:00 Reassessment: No changes from previously documented assessment. Patient and/or family ll1 updated on plan of care and expected duration. Pain level reassessed. Vital Signs: 05:26 BP 119 / 84; Pulse 84; Resp 16; Pulse Ox 99% on R/A; jm8 05:42 Temp 97.8; Weight 58.97 kg; Height 5 ft. 2 in. (157.48 cm) (R); jm8 07:07 BP 115 / 82; Pulse 88; Resp 16; Pulse Ox 97% on R/A; jm8 07:37 BP 119 / 72; Pulse 81; Resp 16; Pulse Ox 98% on R/A; ll1 09:52 BP 136 / 73; Pulse 79; Resp 16; Pulse Ox 99% ; ll1 05:42 Body Mass Index 23.78 (58.97 kg, 157.48 cm) jm8 [place] Coma Score: 05:28 Eye Response: spontaneous(4). Verbal Response: oriented(5). Motor Response: obeys jm8 commands(6). Total: 15. Trauma Score (Adult): 05:28 Eye Response: spontaneous(1); Verbal Response: oriented(1); Motor Response: obeys jm8 commands(2); Systolic BP: > 89 mm Hg(4); Respiratory Rate: 10 to 29 per min(4); Dorothea Score: 15; Trauma Score: 12 ED Course: 05:00 Patient arrived in ED. iw 05:01 Lauro Gillis MD is Attending Physician. mh7 05:15 XRAY Chest (1 view) Sent. jm8 05:15 XRAY Pelvis Sent. jm8 05:16 Triage completed. sf 05:31 Patient maintains SpO2 saturation greater than 95% on room air. jm8 05:31 Arm band placed on right wrist. jm8 05:31 Patient has correct armband on for positive identification. Bed in low position. Call 8 light in reach. Side rails up X2. 05:32 Thermoregulation: warm blanket given to patient. jm8 05:52 Hip Right 2 View XRAY In Process Unspecified. EDMS 05:56 XRAY Pelvis In Process Unspecified. EDMS 05:57 XRAY Chest (1 view) In Process Unspecified. EDMS 06:03 CT Head C Spine Sent. jm8 06:31 CT Head C Spine In Process Unspecified. EDMS 06:[address] Jose called an connected with Dr. Gillis for patient admission consultation. eb 06:[address] Mcgarry the hospitalist shank boner with Dr. Gillis for patient eb admission consultation. 06:54 Tong Mcgarry MD is Hospitalizing Provider. mh7 07:29 Gurpreet Ruiz, RN is Primary Nurse. ll1 07:30 Valadez cath inserted, using sterile technique, 18 Fr., Patient tolerated well. kg 10:54 Primary Nurse role handed off by Gurpreet Ruiz, MARTÍNEZ vg1 10:54 Alexa Reynoso, RN is Primary Nurse. vg1 13:18 No provider procedures requiring assistance completed. Patient admitted, IV remains in vg1 place. Administered Medications: 05:14 Drug: morphine 4 mg Route: IVP; Site: left antecubital; jm8 06:03 Follow up: Response: No adverse reaction; Pain is decreased jm8 13:14 Follow up: Response: No adverse reaction 1 05:15 Drug: Zofran (Ondansetron) 4 mg Route: IVP; Site: left antecubital; jm8 06:02 Follow up: Response: No adverse reaction; Nausea is decreased 8 13:14 Follow up: Response: No adverse reaction 1 05:15 Drug: NS 0.9% 500 ml Route: IV; Rate: bolus; Site: left antecubital; meir8 13:14 Follow up: IV Status: Completed infusion; IV Intake: 500ml vg1 Intake: 06:08 PO: 0ml; Total: 0ml. 8 13:14 IV: 500ml; Total: 500ml. vg1 Outcome: 06:54 Decision to Hospitalize by Provider. [facility] 13:18 Admitted to Tele accompanied by tech, via stretcher, room 202, with chart, Report vg1 called to MARTÍNEZ Castellanos 13:18 Condition: unchanged 13:18 Instructed on the need for admit. 13:48 Patient left the ED. eb Signatures: Dispatcher [employer] EDMS Meseret Hussein, RN Eliza Mendoza Victoria, RN RN vg1 Gurpreet Ruiz RN RN 1 aLuro Gillis MD MD [facility] Aly Evans RN RN Fran Page RN RN 8 Lorin Ornelas kg
[2020-06-10 07:31] LABS: Urine Blood Negative (Negative); Urine Glucose Negative (Negative); Urine Protein 2+ (Negative); Urine Specific Gravity 1.015 (1.005-1.030); Urine pH >=9.0 (5.0-7.0)
[2020-06-10] MEDS ORDERED: ACETAMINOPHEN 500 MG TAB PO PRN (07:55)
[2020-06-10] MEDS ORDERED: ONDANSETRON 4 MG/2 ML VIAL IV PRN (07:55)
[2020-06-10] MEDS: NA CHLORIDE 0.9% 1,000 ML IV SCH (08:00)
--- NOTE | 2020-06-10 11:53 | RAD REPORT ---
EXAM DESCRIPTION: RAD - Chest Single View - 06/10/2020 5:57 am CLINICAL HISTORY: TRAUMA Chest pain. COMPARISON: No comparisons FINDINGS: Portable technique limits examination quality. The lungs are grossly clear. The heart is normal in size. No displaced fractures. IMPRESSION: No acute intrathoracic process suspected.
[2020-06-10] MEDS ORDERED: CEFAZOLIN/SWI 1gm 1 GM/10 ML SYR IV SCH (12:00)
[2020-06-10] MEDS ORDERED: SWI IV SCH (12:00)
[2020-06-10] MEDS ORDERED: CEFAZOLIN IV SCH (12:00)
[2020-06-10] MEDS: CEFAZOLIN/SWI 1gm 1 GM/10 ML SYR IV SCH ×2 (12:00→17:39)
[2020-06-10] MEDS: ENOXAPARIN 40 MG/0.4 ML SQ SCH (12:18)
[2020-06-10] MEDS: HYDROMORPHONE HCL 1 MG/ML INJ IV PRN ×2 (12:19→16:01)
[2020-06-10] MEDS ORDERED: HYDROMORPHONE HCL 0.5 MG/0.5 ML INJ ONE (12:21)
[2020-06-10] MEDS ORDERED: ENOXAPARIN 40 MG/0.4 ML SQ ONE (12:21)
[2020-06-10] MEDS ORDERED: NACHLORIDE 0.45% 0 ML IV ONE (12:21)
--- NOTE | 2020-06-10 13:46 | P.HP ---
Certification for Inpatient Patient admitted to: Inpatient With expected LOS: >2 Midnights Patient will require the following post-hospital care: None Practitioner: I am a practitioner with admitting privileges, knowledge of patient current condition, hospital course, and medical plan of care. Services: Services provided to patient in accordance with Admission requirements found in Title 42 Section 412.3 of the Code of Federal Regulations Patient History Date of Service: 06/10/20 Reason for admission: Right femur fracture History of Present Illness: Patient is an 85-year-old female who presents to the emergency room after falling at her assisted living facility. Patient lives at [facility]. She tends to get around by herself that she tends to be in steady. She apparently fell backwards and she landed on the right side and suffered a right femur fracture. Patient has history of hypertension and type 2 diabetes. Patient with a history of congestive heart failure. Patient is on anti-platelet therapy and diuretics. Patient denies any Coronary artery disease. She has never had a stent placed. Denies any respiratory issues. She appears to be low to moderate risk for any cardiopulmonary complications postoperatively. Will try to optimize her cardiopulmonary status prior to surgery. Hold anti-platelet therapy but otherwise will make sure her volume status is optimal prior to surgery. At this time, benefits of surgery outweigh the risk and I would proceed with surgical intervention. Allergies No Known Allergies Allergy (Unverified 05/18/20 16:01) - Past Medical/Surgical History -: Hypertension -: Type 2 diabetes -: Congestive heart failure Past Surgical History: Unable to obtain - Family History Father Family History: Reviewed- Non-Contributory - Social History Smoking Status: Never smoker Alcohol use: No CD- Drugs: No Review of Systems 10-point ROS is otherwise unremarkable Physical Examination - Vital Signs Temperature: 98.1 F Blood Pressure: 115/91 Pulse: 82 Respirations: 18 Pulse Ox (%): 96 - Physical Exam General: Alert, In no apparent distress, Oriented x3 HEENT: Atraumatic, PERRLA, Mucous membr. moist/pink, EOMI, Sclerae nonicteric Neck: Supple, 2+ carotid pulse no bruit, No LAD, Without JVD or thyroid abnormality Respiratory: Clear to auscultation bilaterally, Normal air movement Cardiovascular: Regular rate/rhythm, Normal S1 S2 Gastrointestinal: Normal bowel sounds, Soft and benign, Non-distended, No tenderness Musculoskeletal: Tenderness, Other (Right leg deviated outward) Integumentary: No rashes Neurological: Sensation intact, Cranial nerves 3-12 intact, Abnormal gait, Abnormal strength Lymphatics: No axilla or inguinal lymphadenopathy - Studies Laboratory Data (last 24 hrs) 06/10/20 05:04: PT 10.6, INR 0.92, APTT 37.2 H 06/10/20 05:04: WBC 14.10 H, Hgb 11.9 L, Hct 36.7, Plt Count 401 06/10/20 05:04: Sodium 139, Potassium 4.2, BUN 18, Creatinine 1.65 H, Glucose 102, Total Bilirubin 0.3, AST 20, ALT 25, Alkaline Phosphatase 91 Assessment & Plan - Problems (Diagnosis) (1) Right femoral fracture Current Visit: Yes Status: Acute (2) History of hypertension Current Visit: Yes Status: Acute (3) History of type 2 diabetes mellitus Current Visit: Yes Status: Acute (4) History of congestive heart failure Current Visit: Yes Status: Acute - Plan Plan: 1. Continue with gentle hydration 2. Pain control 3. Orthopedic consultation 4. Resume cardiac meds except for holding anti-platelet therapy 5. Monitor volume status 6. Benefits of surgery outweigh the risks. At this time, would proceed with surgery. Patient medical condition is currently optimized. The monitoring volume status closely 7. Strict blood pressure and blood sugar control 8. GI and DVT prophylaxis Discharge Plan: Home Plan to discharge in: Greater than 2 days - Advance Directives Does patient have a Living Will: No Does patient have a Durable POA for Healthcare: No - Code Status/Comfort Care Code Status Assessed: Yes Code Status: Full Code Critical Care: No Time Spent Managing PTS Care (In Minutes): 45
[2020-06-10 15:12] VITALS: BMI 27.2
[2020-06-10] MEDS ORDERED: HYDROCODONE/APAP 7.5/325 MG TAB PO PRN (18:35)
--- NOTE | 2020-06-10 19:01 | RAD REPORT ---
EXAM DESCRIPTION: CT Head and Cervical Spine Without Intravenous Contrast CLINICAL HISTORY: The patient is 85 years old and is Female; trauma TECHNIQUE: Axial computed tomography images of the head/brain and cervical spine without intravenous contrast. Sagittal and coronal reformatted images were created and reviewed. This CT exam was pe rformed using one or more of the following dose reduction techniques: automated exposure control, a djustment of the mA and/or kV according to patient size, and/or use of iterative reconstruction techn ique. COMPARISON: No relevant prior studies available. FINDINGS: Brain: Mild nonspecific white matter changes likely related to chronic microvascular isc hemic disease. No hemorrhage. Ventricles: Unremarkable. No ventriculomegaly. Skull: No acute fracture. Sinuses: Unremarkable as visualized. No acute sinusitis. Mastoid air cells: Unremarkable as visualized. No mastoid effusion. Vertebrae: No acute cervical spine fracture or subluxation. Discs/spinal canal/neural foramina: Degenerative changes at the atlantodental articulation. Disc space narrowing with degenerative endplate changes from C3-4 through C6-7. Mild bilateral neural foraminal narrowing at C3-C4. Multilevel facet arthropathy. Soft tissues: Unremarkable. IMPRESSION: 1. No acute intracranial abnormality. 2. No acute cervical spine fracture or subluxation. Electronically signed by: Paulie Mcdaniel MD 06/10/2020 6:45 AM CDT Due to temporary technical issues with the PACS/Fluency reporting system, reports are being signed by the in house radiologists without review as a courtesy to insure prompt reporting. The interpreting radiologist is fully responsible for the content of the report.
--- NOTE | 2020-06-10 19:02 | RAD REPORT ---
EXAM DESCRIPTION: XR Right Hip, 2 or 3 Views CLINICAL HISTORY: The patient is 85 years old and is Female; right hip pain fall out of wheelchair TECHNIQUE: Two views of the right hip. COMPARISON: No relevant prior studies available. FINDINGS: Bones/joints: Acute right femoral neck fracture. No dislocation. Degenerative changes in the pubic symphysis. Soft tissues: Unremarkable. IMPRESSION: Acute right femoral neck fracture. Electronically signed by: Torri Clark MD 06/10/2020 6:02 AM CDT Due to temporary technical issues with the PACS/Fluency reporting system, reports are being signed by the in house radiologists without review as a courtesy to insure prompt reporting. The interpreting radiologist is fully responsible for the content of the report.
--- NOTE | 2020-06-10 19:04 | RAD REPORT ---
EXAM DESCRIPTION: XR Pelvis, 1 or 2 Views CLINICAL HISTORY: The patient is 85 years old and is Female; TRAUMA TECHNIQUE: Single portable frontal view of the pelvis. COMPARISON: No relevant prior studies available. FINDINGS: Bones/joints: Acute right femoral neck fracture. No hip dislocation. Degenerative changes in the pubic symphysis. Multilevel lumbar spine hardware. Soft tissues: Previous abdominal wall hernia repair. IMPRESSION: Acute right femoral neck fracture. Electronically signed by: Torri Clark MD 06/10/2020 6:03 AM CDT Due to temporary technical issues with the PACS/Fluency reporting system, reports are being signed by the in house radiologists without review as a courtesy to insure prompt reporting. The interpreting radiologist is fully responsible for the content of the report.
--- NOTE | 2020-06-10 23:56 | CON ---
Date of Consultation: 06/10/2020 Reason For Consultation: Right hip pain. History Of Present Illness: Rowan is an 85-year-old female who presented to the ER early this mornin g after sustaining a fall onto her right side with subsequent pain to her right hip. She was brought to the emergency room and diagnosed with a right femoral neck fracture. Per the patient's daughter' s history, the patient is nonambulatory and mobilizes mainly with use of a wheelchair. The patient h as history of hypertension, diabetes, and congestive heart failure, on Plavix. She lives at [facility] . Review of Systems: As above, otherwise negative. Past Medical History: Includes hypertension, type 2 diabetes, congestive heart failure. Past Surgical History: Bilateral knee arthroplasty and left wrist surgery. Social History: Denies tobacco, alcohol, or drug use. Lives at [facility]. Allergies: NO KNOWN DRUG ALLERGIES. Medications: Per medication reconciliation form. Physical Examination: General: No apparent distress. HEENT: Normocephalic, atraumatic. Neck: Supple. Cardiovascular: Brisk cap refill to all digits. Chest: Nonlabored breathing. Abdomen: Nondistended. Psychiatric: Response to exam. Musculoskeletal: Bilateral upper extremities, functional range of motion without pain. No gross def ormities. No obvious dislocations. Range of motion without pain. Left lower extremity functional r lashaun of motion without pain. No gross deformities. No obvious dislocations. Right lower extremity, pain with range of motion to the right hip, tenderness to palpation of the right hip. Moves toes gr ossly. 2+ dorsalis pedis pulse. X-rays: X-rays of the right hip demonstrate a valgus impacted femoral neck fracture with a stable fr acture pattern. Assessment/plan: Ms. Green is an 85-year-old female with a right femoral neck fracture. I discusse d with the patient and her family risks and benefits associated with operative and nonoperative treat ment. Given the fracture pattern neck, I recommend surgical fixation with closed reduction and percu taneous screw fixation. The risks, benefits associated with the procedure were discussed with the laura suggs at length. She expressed understanding and elected to proceed with operative treatment. We wi ll proceed with surgery tomorrow. Physical therapy will be consulted postoperatively. CV/MODL Voice ID: [id number] Report ID: [id number]
[2020-06-11] MEDS: CEFAZOLIN/SWI 1gm 1 GM/10 ML SYR IV SCH ×4 (00:43→17:06)
[2020-06-11] MEDS: NA CHLORIDE 0.9% 1,000 ML IV SCH ×3 (03:28→15:15)
[2020-06-11 05:59] LABS: Absolute Lymphocytes (CBC) 1.8 K/uL (0.7-4.9); Basophils % 0.8 % (0-1.3); Hematocrit 32.4 % (36.0-45.0); Lymphocytes % 21.8 % (15.3-44.8); MPV 7.6 fL (7.6-11.3)
[2020-06-11 06:00] LABS: Protime INR 1.07
[2020-06-11 06:14] LABS: Albumin 2.7 g/dL (3.4-5.0); Bilirubin Total 0.4 mg/dL (0.2-1.0); Magnesium 1.6 mg/dL (1.8-2.4); Phosphorus 3.1 mg/dL (2.5-4.9); Potassium 3.9 mmol/L (3.5-5.1); Protein, Total 6.1 g/dL (6.4-8.2)
[2020-06-11] MEDS ORDERED: MAGNESIUM SULFATE 1 gm IVPB 1 GM/100 ML BAG IV ONE (07:01)
[2020-06-11] MEDS: HYDROMORPHONE HCL 1 MG/ML INJ IV PRN (07:15)
[2020-06-11] MEDS ORDERED: KCL 20 MEQ/100 mL IVPB 20 MEQ/100 ML BAG IV SCH (08:00)
[2020-06-11] MEDS: TRANEXAMIC ACID 1,000 MG in NA CHLORIDE 0.9% 50 ML IV SCH ×2 (08:00→09:00)
[2020-06-11] MEDS ORDERED: propofoL 200 MG/20 ML VIAL IV ONE (08:09)
[2020-06-11] MEDS ORDERED: LIDOCAINE 2% MPF 5 ML VIAL ONE (08:09)
[2020-06-11] MEDS ORDERED: Phenylephrine HCl 10 MG/ML 1 ML VIAL ONE (08:10)
[2020-06-11] MEDS ORDERED: CEFAZOLIN SODIUM 1 GM/VIAL ONE ×2 (08:11→08:12)
[2020-06-11] MEDS ORDERED: dexAMETHasone 10 MG/ML VIAL ONE (08:12)
[2020-06-11] MEDS ORDERED: ONDANSETRON 4 MG/2 ML VIAL ONE (08:12)
[2020-06-11] MEDS ORDERED: KETOROLAC 30 MG/ML INJ ONE (08:13)
[2020-06-11] MEDS ORDERED: CLINDAMYCIN PHOSPHATE 600 MG in NA CHLORIDE 0.9% 50 ML IV ONE (09:00)
[2020-06-11] MEDS: ENOXAPARIN 40 MG/0.4 ML SQ SCH (09:00)
[2020-06-11] MEDS ORDERED: GLYCOPYRROLATE 0.2 MG/ML SYR ONE (09:27)
[2020-06-11] MEDS ORDERED: FENTANYL CITR 100 MCG/2 ML ONE (09:32)
--- NOTE | 2020-06-11 09:57 | P.BOP ---
Preoperative diagnosis: right femoral neck fracture Postoperative diagnosis: same Primary procedure: closed reduction percutaneous screw fixation right femoral neck fracture Secondary procedure: none Choir Leader: NONE,NONE Estimated blood loss: 10 cc Specimen: none Findings: see dictation Anesthesia: General Complications: None Drain(s): Urinary catheter Implants: 3- 6.5 mm cannulated screw 85 mm, 80 mm, 80 mm Fluids & blood products: per anesthesia record Transferred to: Recovery Room Condition: Good
[2020-06-11] MEDS ORDERED: DOCUSATE NA 100 MG CAP PO PRN (10:08)
--- NOTE | 2020-06-11 10:40 | RAD REPORT ---
EXAM DESCRIPTION: RAD - Hip In Or - 06/11/2020 10:21 am CLINICAL HISTORY: Femoral fracture FINDINGS: Fluoroscopy time 1 minute. Thirty-three fluoroscopic spot images obtained Surgery performed by Dr. Jose Pins affix a femoral fracture
--- NOTE | 2020-06-11 11:29 | RAD REPORT ---
EXAM DESCRIPTION: RAD - Hip Right 2 View - 06/11/2020 10:55 am CLINICAL HISTORY: Right hip surgery FINDINGS: Three pins affix a femoral fracture. No dislocation
[2020-06-11 12:12] LABS: Hematocrit 32.2 % (36.0-45.0)
[2020-06-12] MEDS: CEFAZOLIN/SWI 1gm 1 GM/10 ML SYR IV SCH ×3 (00:13→11:13)
[2020-06-12] MEDS: NA CHLORIDE 0.9% 1,000 ML IV SCH (04:51)
[2020-06-12] MEDS: HYDROMORPHONE HCL 1 MG/ML INJ IV PRN (06:11)
--- NOTE | 2020-06-12 06:19 | P.PN ---
Subjective Date of Service: 06/11/20 Doing well postoperatively. Patient with no new complaints. Review of Systems 10-point ROS is otherwise unremarkable Physical Examination - Vital Signs Temperature: 97.0 F Blood Pressure: 141/61 Pulse: 70 Respirations: 19 Pulse Ox (%): 96 - Physical Exam General: Alert, In no apparent distress, Oriented x3 HEENT: Atraumatic, PERRLA, EOMI Neck: Supple, JVD not distended Respiratory: Clear to auscultation bilaterally, Normal air movement Cardiovascular: Regular rate/rhythm, Normal S1 S2 Gastrointestinal: Normal bowel sounds, Soft and benign, Non-distended, No tenderness Musculoskeletal: Tenderness Neurological: Normal speech, Normal tone, Sensation intact, Cranial nerves 3-12 intact - Studies Medications List Reviewed: Yes Assessment & Plan - Problems (Diagnosis) (1) Right femoral fracture Current Visit: Yes Status: Acute (2) History of hypertension Current Visit: Yes Status: Acute (3) History of type 2 diabetes mellitus Current Visit: Yes Status: Acute (4) History of congestive heart failure Current Visit: Yes Status: Acute - Plan Plan: 1. Continue with gentle hydration 2. Pain control 3. Orthopedic consultation appreciated 4. Resume cardiac meds except for holding anti-platelet therapy 5. Monitor volume status 6. Physical therapy at this time. Either due inpatient rehab or [facility] facility placement 7. Strict blood pressure and blood sugar control 8. GI and DVT prophylaxis Discharge Plan: Home Plan to discharge in: Greater than 2 days - Advance Directives Does patient have a Living Will: No Does patient have a Durable POA for Healthcare: No - Code Status/Comfort Care Code Status: Full Code Critical Care: No Time Spent Managing PTS Care (In Minutes): 45
[2020-06-12 06:20] LABS: Absolute Lymphocytes (CBC) 1.7 K/uL (0.7-4.9); Basophils % 0.4 % (0-1.3); Hematocrit 29.1 % (36.0-45.0); Lymphocytes % 18.2 % (15.3-44.8); MPV 7.6 fL (7.6-11.3)
[2020-06-12 06:38] LABS: Magnesium 1.9 mg/dL (1.8-2.4)
[2020-06-12 07:40] VITALS: O2SAT 99
[2020-06-12] MEDS ORDERED: ENOXAPARIN 30 MG/0.3 ML SQ SCH (09:00)
--- NOTE | 2020-06-12 10:52 | EKG ---
Test Date: 2020-06-10 Test Time: 05:37:57 [place]ogs[place] Hooper: MARTÍNEZ MEASUREMENT RESULTS: Intervals: Rate: 88 IL: 136 QRSD: 74 QT: 370 QTc: 447 [place]: P: 79 IL: 136 QRS: 50 T: 53 INTERPRETIVE STATEMENTS: Normal sinus rhythm Normal ECG No previous ECG available for comparison Electronically Signed On 06-12-20 10:47:09 CDT by King Gutierrez
[2020-06-12] MEDS ORDERED: LACTULOSE 20 GM/30 ML UCUP PO PRN (11:47)
[2020-06-12] MEDS ORDERED: BISACODYL E.C. 5 MG TAB PO PRN (11:47)
[2020-06-12] MEDS ORDERED: DOCUSATE NA/SENNA CONC 1 TAB PO PRN (11:47)
[2020-06-12] MEDS ORDERED: TRAMADOL HCL 50 MG TAB PO PRN (11:47)
--- NOTE | 2020-06-12 11:54 | P.DS ---
Admission Date: 06/10/20 Discharge Date: 06/12/20 Primary Care Provider: [facility] Disposition: TRANSFER TO INPATIENT REHAB Discharge Condition: GOOD Reason for Admission: Right femur fracture Consultations: Orthopedics-Dr. Jose Procedures: COVID: Negative CT scan: COMPARISON: No relevant prior studies available. FINDINGS: Brain: Mild nonspecific white matter changes likely related to chronic microvascular ischemic disease. No hemorrhage. Ventricles: Unremarkable. No ventriculomegaly. Skull: No acute fracture. Sinuses: Unremarkable as visualized. No acute sinusitis. Mastoid air cells: Unremarkable as visualized. No mastoid effusion. Vertebrae: No acute cervical spine fracture or subluxation. Discs/spinal canal/neural foramina: Degenerative changes at the atlantodental articulation. Disc space narrowing with degenerative endplate changes from C3-4 through C6-7. Mild bilateral neural foraminal narrowing at C3-C4. Multilevel facet arthropathy. Soft tissues: Unremarkable. IMPRESSION: 1. No acute intracranial abnormality. 2. No acute cervical spine fracture or subluxation. Hip xray: COMPARISON: No relevant prior studies available. FINDINGS: Bones/joints: Acute right femoral neck fracture. No dislocation. Degenerative changes in the pubic symphysis. Soft tissues: Unremarkable. IMPRESSION: Acute right femoral neck fracture. Surgery: Date: 06/11/20 Preoperative diagnosis: right femoral neck fracture Postoperative diagnosis: same Primary procedure: closed reduction percutaneous screw fixation right femoral neck fracture Secondary procedure: none Orchestra Director: NONE,NONE Estimated blood loss: 10 cc Specimen: none Findings: see dictation Anesthesia: General Complications: None Implants: 3- 6.5 mm cannulated screw 85 mm, 80 mm, 80 mm Fluids & blood products: per anesthesia record Medical Problem List: Fall with acute right femoral neck fracture status post closed reduction percutaneous screw fixation Chronic diastolic CHF Chronic renal failure stage III Diabetes mellitus type 2 Restless leg syndrome Dementia GERD Depression with anxiety Brief History of Present Illness: 85-year-old female who presents to the emergency room after falling at her assisted living facility. Patient lives at [facility]. She tends to get around by herself that she tends to be in steady. She apparently fell backwards and she landed on the right side and suffered a right femur fracture. Patient has history of hypertension and type 2 diabetes. Patient with a history of congestive heart failure. Patient is on anti-platelet therapy and diuretics. Patient denies any Coronary artery disease. She has never had a stent placed. Denies any respiratory issues. She appears to be low to moderate risk for any cardiopulmonary complications postoperatively. Patient admitted for further evaluation and treatment. Hospital Course: Patient presented with a fall. Patient suffered an acute right femoral neck fracture. Patient was seen and evaluated by orthopedics. Orthopedic recommended intervention. Patient had close reduction with percutaneous screw fixation. Patient has done well postoperatively. Patient was evaluated for inpatient rehab. Patient has been accepted. Advance care planning addressed with the family. Patient is DO NOT RESUSCITATE. Family agrees with plan to discharge to inpatient rehab to continue rehabilitation. Long-term plan is for the patient to live near family in [facility]. Family plans to keep patient in a home setting with care. At this time patient will be transferred up to rehab. Continue with DVT prophylaxisLovenox. Continue with physical therapy recommendations. Continue with orthopedic recommendations as well. Patient with chronic diastolic CHF. This appears stable. Patient on oxygen. Currently on 3 L per nasal cannula. At discharge patient will continue with a 1500 cc/day fluid restriction and low-salt diet. At discharge patient will continue with Demadex 20 mg daily along with potassium supplementation. Patient also takes Plavix 25 mg daily. Patient will continue with both medications. Patient with diabetes mellitus type 2. Patient previously on Metformin. This has been discontinued at discharge. Recommend to monitor blood sugar closely. Consider other options instead of metformin due to her chronic renal disease. Recommend to monitor blood sugars daily. Recommend to check A1c to evaluate her current status. Recommend to maintain blood sugar less than 140 fasting and less than 200 mils. If blood sugars remain elevated above 200 consider starting glimepiride. This can be done in inpatient rehab. Recommend follow-up with PCP to further monitor and adjust medication. As mentioned above recommend to discontinue Metformin at discharge. Patient with restless leg syndrome. At discharge patient will continue with Mirapex 0.5 mg at bedtime. Patient with hypertension. At discharge patient will continue with Norvasc 5 mg daily. Recommend to maintain blood pressure less than 130/80. Further treatment can be done by PCP. Patient with GERD. At discharge patient will continue with Pepcid 20 mg daily. Patient with depression with anxiety. At discharge patient will continue with bupropion 200 mg daily. Patient with underlying dementia. This can be further evaluated and address in inpatient rehab with neurology. Patient with seasonal chronic allergies. Patient will continue with current medications of Flonase and Clarinex. Vital Signs/Physical Exam: Temp Pulse Resp BP Pulse Ox 97.8 F 67 16 131/61 98 06/12/20 08:00 06/12/20 08:00 06/12/20 08:00 06/12/20 08:00 06/12/20 08:00 General: Alert, In no apparent distress, Oriented x3, Cooperative HEENT: Atraumatic Neck: Supple Respiratory: Clear to auscultation bilaterally, Normal air movement Cardiovascular: Normal pulses, Regular rate/rhythm Gastrointestinal: Normal bowel sounds, No tenderness, No masses, No rebound, No guarding Musculoskeletal: No erythema, No tenderness, No warmth Integumentary: No tenderness/swelling Neurological: Normal speech, Normal strength at 5/5 x4 extr, Normal tone, Dementia (Mild dementia) Laboratory Data at Discharge: WBC 9.30 K/uL (4.3-10.9) 06/12/20 05:55 Hgb 9.6 g/dL (12.0-15.0) L 06/12/20 05:55 Hct 29.1 % (36.0-45.0) L 06/12/20 05:55 Plt Count 276 K/uL (152-406) 06/12/20 05:55 PT 12.3 SECONDS (9.5-12.5) 06/11/20 05:25 INR 1.07 06/11/20 05:25 APTT 28.9 SECONDS (24.3-36.9) 06/11/20 05:25 Sodium 144 mmol/L (136-145) 06/12/20 05:40 Potassium 4.0 mmol/L (3.5-5.1) 06/12/20 05:40 BUN 17 mg/dL (7-18) 06/12/20 05:40 Creatinine 1.25 mg/dL (0.55-1.3) 06/12/20 05:40 Glucose 100 mg/dL (74-106) 06/12/20 05:40 Phosphorus 3.1 mg/dL (2.5-4.9) 06/11/20 05:25 Magnesium 1.9 mg/dL (1.8-2.4) 06/12/20 05:40 Total Bilirubin 0.4 mg/dL (0.2-1.0) 06/11/20 05:25 AST 41 U/L (15-37) H 06/11/20 05:25 ALT 20 U/L (12-78) 06/11/20 05:25 Alkaline Phosphatase 79 U/L (45-117) 06/11/20 05:25 Home Medications: Amlodipine [Norvasc*] 1 tab PO DAILY 06/11/20 Bisacodyl [Laxative] 2 tab PO DAILY PRN 06/11/20 Clopidogrel Bisulfate [Plavix*] 1 tab PO DAILY 06/11/20 Clotrim/Betameth Cream [Lotrisone Cream*] 1 appl TOP BID 06/11/20 Desloratadine [Clarinex] 1 tab PO DAILY 06/11/20 Famotidine [Pepcid*] 1 tab PO DAILY 06/11/20 Fluticasone [Flonase 50MCG Nasal [place]*] 2 spray IH DAILY 06/11/20 Lactulose 15 ml PO BID PRN 06/11/20 Potassium Oral Tab [Klor-Con 10 mEq Tab*] 20 meq PO DAILY 06/11/20 Pramipexole [Mirapex*] 0.5 mg PO BEDTIME 06/11/20 Sennosides/Docusate Sodium [Senna Plus 8.6-50 mg Tablet] 2 tab PO BEDTIME PRN 06/11/20 Torsemide [Demadex*] 1 tab PO DAILY 06/11/20 Tramadol HCl [Ultram] 1 tab PO BID 06/11/20 buPROPion HCL [Bupropion HCl Sr] 1 tab PO DAILY 06/11/20 Physician Discharge Instructions: Patient presented with a fall. Patient suffered an acute right femoral neck fracture. Patient was seen and evaluated by orthopedics. Orthopedic recommended intervention. Patient had close reduction with percutaneous screw fixation. Patient has done well postoperatively. Patient was evaluated for inpatient rehab. Patient has been accepted. Advance care planning addressed with the family. Patient is DO NOT RESUSCITATE. Family agrees with plan to discharge to inpatient rehab to continue rehabilitation. Long-term plan is for the patient to live near family in [facility]. Family plans to keep patient in a home setting with care. At this time patient will be transferred up to rehab. Continue with DVT prophylaxisLovenox. Continue with physical therapy recommendations. Continue with orthopedic recommendations as well. Patient with chronic diastolic CHF. This appears stable. Patient on oxygen. Currently on 3 L per nasal cannula. At discharge patient will continue with a 1500 cc/day fluid restriction and low-salt diet. At discharge patient will continue with Demadex 20 mg daily along with potassium supplementation. Patient also takes Plavix 25 mg daily. Patient will continue with both medications. Patient with diabetes mellitus type 2. Patient previously on Metformin. This has been discontinued at discharge. Recommend to monitor blood sugar closely. Consider other options instead of metformin due to her chronic renal disease. Recommend to monitor blood sugars daily. Recommend to check A1c to evaluate her current status. Recommend to maintain blood sugar less than 140 fasting and less than 200 mils. If blood sugars remain elevated above 200 consider starting glimepiride. This can be done in inpatient rehab. Recommend follow-up with PCP to further monitor and adjust medication. As mentioned above recommend to discontinue Metformin at discharge. Patient with restless leg syndrome. At discharge patient will continue with Mirapex 0.5 mg at bedtime. Patient with hypertension. At discharge patient will continue with Norvasc 5 mg daily. Recommend to maintain blood pressure less than 130/80. Further treatment can be done by PCP. Patient with GERD. At discharge patient will continue with Pepcid 20 mg daily. Patient with depression with anxiety. At discharge patient will continue with bupropion 200 mg daily. Patient with underlying dementia. This can be further evaluated and address in inpatient rehab with neurology. Patient with seasonal chronic allergies. Patient will continue with current medications of Flonase and Clarinex. Diet: AHA Activity: Fall precautions Followup: Unknown,U [Primary Care Provider] - Time spent managing pt's care (in minutes): 55
[2020-06-12 13:09] VITALS: BP 109/67; TEMP 97.9
[2020-06-12] MEDS ORDERED: CLOTRIMAZ/BETAMETH CREAM 15GM TOP SCH (21:00)
[2020-06-12] MEDS ORDERED: PRAMIPEXOLE 0.25 MG TAB PO SCH (21:00)
[2020-06-13] MEDS ORDERED: BUPROPION HCL 200 MG PO SCH (09:00)
[2020-06-13] MEDS ORDERED: AMLODIPINE 5 MG TAB PO SCH (09:00)
[2020-06-13] MEDS ORDERED: CLOPIDOGREL 75 MG TABLET PO SCH (09:00)
[2020-06-13] MEDS ORDERED: TORSEMIDE 20 MG TAB PO SCH (09:00)
[2020-06-13] MEDS ORDERED: LORATADINE 10 MG TAB PO SCH (09:00)
[2020-06-13] MEDS ORDERED: FAMOTIDINE 20 MG TAB PO SCH (09:00)
[2020-06-13] MEDS ORDERED: FLUTICASONE 50MCG NASAL SPRAY NAS SCH (09:00)
[2020-06-13] MEDS ORDERED: POTASSIUM CL SA 10 MEQ TAB PO SCH (09:00)
--- NOTE | 2020-06-14 03:04 | OP ---
Date of Procedure: 06/11/2020 Surgeon: Beau Jose MD Preoperative Diagnosis: Right femoral neck fracture. Postoperative Diagnosis: Right femoral neck fracture. Procedure Performed: Closed reduction, percutaneous screw fixation of right femoral neck fracture. Anesthesia: General LMA. Fluids: Per Anesthesia record. Estimated Blood Loss: 10 cc. Complications: None. Implants: Three 6.5 mm cannulated screws. Indication For Procedure: Rowan is an 85-year-old female who presented to the ER after sustaining a fall onto her right side with subsequent pain to her right hip. X-rays in the emergency room demonst rated a right femoral neck fracture. Given her fracture pattern, I discussed with the patient and he r family risks and benefits associated with operative and nonoperative treatment. They expressed und erstanding and elected to proceed with operative treatment. Description Of Procedure: After informed consent was obtained, the patient was identified in the pre operative holding area. The right lower extremity was marked. The patient was then taken back to e operating room and transferred to the operating table in a supine fashion. Then placed under gener al LMA anesthesia. She was then placed on the fracture table with her extremities well padded. Usin g fluoroscopy, the right hip was evaluated and patient was noted to have a valgus impacted femoral ne ck fracture, which was stable. The right lower extremity was then prepped and draped in usual steril e fashion. A time-out was initiated. Correct patient and procedure were confirmed and identified. The patient did receive preoperative prophylactic antibiotics. Attention was first taken to the prox imal femur where a 1 cm stab incision was made just over the lateral thigh. Guide pin was then place d on the lateral aspect of the proximal femur and placed in the inferior central aspect of femoral ne ck and head. Once the pin was placed near the subchondral bone and the femoral head, it was in prope r position. Once this was confirmed using fluoroscopy in both AP and lateral views, an inverted tria ngle configuration was then created using 2 more pins that were placed in a superior anterior positio n and a superior posterior position within the femoral neck and head. Proper position of these pins was then confirmed using fluoroscopy. They were then measured and lateral cortex was then drilled an d three 6.5 mm cannulated screws were placed within the femoral neck and head with overall good align ment. Guide pins were then removed. The wounds were then irrigated thoroughly with normal saline. Skin was approximated using jihan. Sterile dressings were applied. The patient was awakened and t ransferred to the PACU in stable condition. Postoperative Plan: She will be touchdown weightbearing on the right lower extremity and physical th erapy will be consulted. Many Farms may be removed at 2 weeks postoperatively. CV/MODL Voice ID: [id number] Report ID: [id number]
== END 2020-06-12 13:59 | DRG 481 ==
LOC: ER 04:55 → ERHOLD 07:55 → 2ND 13:18
PROVIDERS: ADMIT Hospitalist; ATTEND Family Medicine
PROC: 0QS634Z Reposition Right Upper Femur with Internal Fixation Device, Percutaneous Approach (ICD-10-PCS; principal; 2020-06-11 08:00)
DX: S72.001A Fracture of unspecified part of neck of right femur, initial encounter for closed fracture (principal); I50.32 Chronic diastolic (congestive) heart failure; I13.0 Hypertensive heart and chronic kidney disease with heart failure and stage 1 through stage 4 chronic kidney disease, or unspecified chronic kidney disease; N18.30 Chronic kidney disease, stage 3 unspecified; E11.22 Type 2 diabetes mellitus with diabetic chronic kidney disease; F03.90 Unspecified dementia, unspecified severity, without behavioral disturbance, psychotic disturbance, mood disturbance, and anxiety; E78.5 Hyperlipidemia, unspecified; F41.8 Other specified anxiety disorders; K21.9 Gastro-esophageal reflux disease without esophagitis; G25.81 Restless legs syndrome; Z88.0 Allergy status to penicillin; Z79.02 Long term (current) use of antithrombotics/antiplatelets; Z66 Do not resuscitate; Z79.84 Long term (current) use of oral hypoglycemic drugs; Z79.899 Other long term (current) drug therapy; Z20.822 Contact with and (suspected) exposure to COVID-19
CPT/HCPCS: 36415; 51702; 70450; 71045; 72125; 72170; 73530; 80048; 80053; 80076; 81003; 82947; 83735; 84100; 84484; 85014; 85018; 85025; 85610; 85730; 86850; 86900; 86901; 93005; 94010; 96361; 96374; 96375; 97110; 97161; 97530; 99285; G0390; J0690; J1100; J1170; J1650; J2370; J2405; J2704; J3010; J3475; J3480; J7030; S0077; U0003

== ENCOUNTER 2020-06-12 10:36 | Inpatient (IN) | payer OTHER ==
--- NOTE | 2020-06-12 13:57 | R.PREADM ---
PRE-ADMISSION SCREENING FORM SCREENING DATE AND TIME 06/12/2020 11:00 (CDT) ANTICIPATED REHAB ADMISSION DATE 06/14/[address] [facility] REFERRAL DATE AND TIME 06/11/2020 11:20 (CDT) REFERRAL ROOM# 202 ACUTE ADMIT DATE 06/10/2020 Previous Rehabilitation(s): No. ACUTE LEAD FABRICATOR/DC HEPATOLOGIST Rosanna REFERRING PHYSICIAN Dr. Mcgarry REHAB FACILITY [facility] CLINICAL LIAISON Vitor Alvares PHYSICIAN REVIEWER Dr. Erlin Cortez M.D. MR# [id number] NAME DEVAN LIMA ADDRESS [address] [place] [address] PHONE [facility] [id number] DATE OF 1935 AGE 85 SSN# [id number] GENDER female MARITAL STATUS RACE white PREF. LANGUAGE (IF NON-TUNISIAN) Occitan ADMIT FROM 01 - Home (private home/apt. board/care, assisted living, fdc, transitional living) PRE-HOSPITAL LIVING SETTING 01 - Home (private home/apt. board/care, assisted living, fdc, transitional living) HOME TYPE AND DETAILS Type of home: Assisted Living/[place] # of levels in the residence: 1 # of steps to enter the residence: 0 # of steps within the residence: 0 PRE-HOSPITAL LIVING WITH Attendant FAMILY SUPPORT Yes PRIMARY FAMILY CONTACT NAME Teagan Pressley PRIMARY FAMILY CONTACT PHONE PRIMARY FAMILY CONTACT RELATIONSHIP Daughter IS PRIMARY FAMILY CONTACT AUTH. REP.? no 1ST EMERGENCY CONTACT Teagan Pressley 1ST CONTACT PHONE 1ST CONTACT RELATIONSHIP Daughter IS 1ST CONTACT AUTH. REP.? no PHONE 2ND CONTACT ON ADM.? no PATIENT EMPLOYMENT STATUS Retired (for age) PATIENT EMPLOYER No Employer PAYOR INFORMATION: 1ST PAYOR NAME MEDICARE 1ST PAYOR PHONE 1ST PAYOR INJURY/ILLNESS DUE TO ACCIDENT? Yes ANOTHER DEMOCRAT RESPONSIBLE? No PRIMARY REHAB/ACUTE DIAGNOSIS: R Femoralfracture ONSET DATE 06/10/2020 REHAB IMPAIRMENT CATEGORY (ALYSHA): 07 Fracture of LE (FracLE) MEETS 60% rule AFFECTED EXTREMITIES: RLE PRIMARY DIAGNOSIS-RELATED SURGERIES: Emergency Closed REduction, Percutaneous Pinning Right Hip - performed by Dr. Jose on 06/11/2020 SUMMARY OF ACUTE HOSPITALIZATION: Pt. is a 85 yo Right-handed white female. She has past medical history significant for diabetes, HTN and CHF. On 06/10/2020 she [address] to [facility] and underwent emergency surgery for R Femoral F X (Closed Reduction, Percutaneous Pinning Right Hip) by Dr Jose. Pre-morbidly, Pt. was independent/mod-I in Locomotion, Transfers Control, Self-Care, Social Cognition , Sphincter Control, and Communication; and she had good Balance and Safety Awareness. Currently, she has deficits of Transfers Control, Balance, Locomotion, Safety Awareness, Self-Care, S ocial Cognition, Sphincter Control, and Communication. Pt. is now referred to [facility] for acute in-patient rehabilitation in order to maximize patient's functional independence in activities of daily living, strength, ROM, and mobi lity. Patient has realistic goal of being discharged at assistance level 5-sup to reside at [facility] with Assistance. PAST MEDICAL HISTORY HTN Diabetes CHF MEDICATION ALLERGIES: Penicillin ENVIRONMENTAL ALLERGIES: corn - Substance Allergies None Known - Other Allergies None Known CODE STATUS: Full code WEIGHT/HEIGHT/BMI: WEIGHT 149 lbs HEIGHT 5' 2" BMI 27.2 DIET: - Diet Type Regular - Diet - Solid Texture Regular - Diet - Liquid Texture Regular - Tube Feed N/A REVIEW OF SYSTEMS: - Gen Alert and awake Lying in bed No apparent distress Oriented to: person, time, and place - Vital Signs Vital signs stable, afebrile - CVS RRR VITAL SIGNS Temperature: 97.8 F SBP/DBP: 131/61 Pulse: 67 Resp: 16 Vital signs stable, afebrile MEDICATIONS/TREATMENT: - see chart. CURRENT SPHINCTER CONTROL: Pre-hospital bladder status: unspecified # of bladder accidents in the last 7 days prior to screenin Pre-hospital bowel status: unspecified # of bowel accidents in the last 7 days prior to screenin DETAILED CURRENT FUNCTIONAL STATUS: - Walking score based on distance walked: 0(N/A) - Wheelchair score based on distance traveled: 0(N/A) QI SCORES: - Self-Care A. Eating 03-Partial/moderate assistance B. Oral hygiene 03-Partial/moderate assistance C. Toileting hygiene 01-Dependent E. Shower/bathe self 01-Dependent F. Upper body dressing 02-Substantial/maximal assistance G. Lower body dressing 88-Not attempted due to medical condition or safety concerns H. Putting on/taking off footwear 88-Not attempted due to medical condition or safety concerns - Mobility A. Roll left and right 01-Dependent B. Sit to lying 01-Dependent C. Lying to sitting on side of bed 01-Dependent D. Sit to stand 01-Dependent E. Chair/nut-sq-dtdol transfer 01-Dependent F. Toilet transfer 01-Dependent G. Car transfer 88-Not attempted due to medical condition or safety concerns I. Walk 10 feet 01-Dependent J. Walk 50 feet with two turns 88-Not attempted due to medical condition or safety concerns K. Walk 150 feet 88-Not attempted due to medical condition or safety concerns L. Walking 10 feet on uneven surfaces 88-Not attempted due to medical condition or safety concerns M. 1 step (curb) 88-Not attempted due to medical condition or safety concerns N. 4 steps 88-Not attempted due to medical condition or safety concerns O. 12 steps 88-Not attempted due to medical condition or safety concerns P. Picking up object 88-Not attempted due to medical condition or safety concerns R. Wheel 50 feet with two turns 88-Not attempted due to medical condition or safety concerns S. Wheel 150 feet 88-Not attempted due to medical condition or safety concerns - Endurance Poor - Balance Poor - Safety Awareness Poor CURRENT FUNC. DEFICITS: Self-Care, Mobility, Endurance, Balance, and Safety Awareness CURRENT / PREVIOUS ASSISTIVE DEVICES: 3-in-1 Commode Rolling Walker Shower Chair Wheelchair HISTORY OF FALLS. HAS THE PATIENT HAD TWO OR MORE FALLS IN THE PAST YEAR OR ANY FALL WITH INJURY IN T HE PAST YEAR?: Yes PRIOR SURGERY. DID THE PATIENT HAVE MAJOR SURGERY DURING THE 100 DAYS PRIOR TO ADMISSION?: Yes THERAPY NOTES FROM ACUTE CARE: Attached. SPECIAL NEEDS: - Safety Concerns Skin breakdown precautions needed due to skin breakdown risk PRECAUTIONS: - Anterior Hip Precaution No abduction No active extension No adduction across midline No external rotation No hip flexion >90 degrees No internal rotation - Posterior Hip Precaution No adduction across midline No external rotation No hip flexion >90 degrees No internal rotation No wheel chair propulsion - Weight Bearing Precaution TTWB right LE PATIENT NEEDS ACTIVE AND ONGOING THERAPEUTIC INTERVENTION OF MULTIPLE THERAPY DISCIPLINES, INCLUDING: - Dietary and Nutrition Adequate Nutrition. Nutritional Education. Nutritional Supplements. PATIENT NEEDS CLOSE MEDICAL SUPERVISION BY A REHABILITATION PHYSICIAN FOR: Coordination of Treatment Team Post-Op Complications PATIENT REQUIRES 24X7 REHAB NURSING FOR MEDICAL AND FUNCTIONAL MGT. OF THE FOLLOWING DEFICITS: Disease Management Medication Management Patient/Family Education Providing Safe Environment PATIENT REQUIRES INTENSIVE, COORDINATED INTERDISCIPLINARY APPROACH TO REHAB: Arranging Home Equipment/Services Discharge Planning Family Intervention/Training Graphic Art Technician/Case Management PATIENT REHAB POTENTIAL: Erich LIMA is able and expected to receive 3 hours of individualized therapy daily on at least 5 of ev nola 7 days Erich LIMA's prognosis for significant practical improvement within a reasonable period of time appear s Good Expected level of measurable improvement will be of a practical value to Erich LIMA's functional capac ity or adaptations to impairments Has a viable Discharge Plan Medically appropriate; condition is sufficiently stable to participate in intensive rehab program DISCHARGE PLAN: - Estimated Length of Stay (days) 14. - Consensus on plan Discharge plan has been discussed with primary caregiver. Patient/Family is in agreement with the delmer n. Primary caregiver is in agreement with the plan. - Patient/Family Goals Return home with assistance. - Planned Living Setting Upon Discharge To [facility], to live with Assistance. RECOMMENDED CARE LEVEL: IRF RECOMMENDATION DETAILS: Recommended Admission to Comprehensive Rehabilitation Program to Increase Functional Rand SCREENER'S COMPLETENESS CONFIRMATION: - Screening Confirmation The patient data collection on this preadmission screening form is finished PHYSICIANS REVIEW AND ADMISSION DETERMINATION Admit - Based on my review of the Pre-Admission Screening results, in my medical judgment and experie nce, I concur with the findings and recommend admission to [facility], as this patient requires an IRF level of care. SIGNATURE PANEL: Paralegal Legal Secretary - [electronically] signed by Manju Gomez, Cell Room Operator on 06/12/2020 at 13:37 (CD T) Paralegal Legal Secretary - [electronically] signed by Amado Alvares PT on 06/12/2020 at 13:47 (CDT) Physician Reviewer - [electronically] signed by Dr. Erlin Cortez M.D. on 06/12/2020 at 13:56 (CDT )
[2020-06-12 15:31] VITALS: BMI 28.6
[2020-06-12] MEDS ORDERED: DOCUSATE NA/SENNA CONC 1 TAB PO PRN (15:45)
[2020-06-12] MEDS ORDERED: BISACODYL E.C. 5 MG TAB PO PRN (17:07)
[2020-06-12] MEDS: TRAMADOL HCL 50 MG TAB PO PRN (19:03)
[2020-06-12] MEDS: DOCUSATE NA/SENNA CONC 1 TAB PO PRN (19:03)
[2020-06-12] MEDS: PRAMIPEXOLE 0.25 MG TAB PO SCH (19:03)
[2020-06-12] MEDS: MELATONIN 3 MG TABLET PO PRN (21:00)
[2020-06-12 21:25] LABS: Urine Appearance CLOUDY (Clear); Urine Bilirubin NEGATIVE (Negataive); Urine Blood NEGATIVE (Negative); Urine Color YELLOW (Yellow); Urine Glucose NEGATIVE (Negative); Urine Protein TRACE (Negative); Urine Urobilinogen 0.2 mg/dL (0.2-1.0)
[2020-06-12 21:42] LABS: Urine Bacteria <20 /HPF (<20); Urine Mucus 1+ /HPF (NONE SEEN); Urine RBC <5 /HPF (NONE SEEN)
[2020-06-13] MEDS: TRAMADOL HCL 50 MG TAB PO PRN ×4 (00:01→17:38)
[2020-06-13 06:19] LABS: Absolute Lymphocytes (CBC) 2.1 K/uL (0.7-4.9); Basophils % 0.6 % (0-1.3); Hematocrit 27.5 % (36.0-45.0); Lymphocytes % 29.3 % (15.3-44.8); MPV 7.7 fL (7.6-11.3); RBC Red Blood Cell Count 3.13 M/uL (3.86-4.86)
[2020-06-13 06:56] LABS: Albumin 2.3 g/dL (3.4-5.0); Magnesium 1.8 mg/dL (1.8-2.4); Potassium 3.5 mmol/L (3.5-5.1); Prealbumin 12.2 mg/dL (20-40)
[2020-06-13] MEDS: ENOXAPARIN 30 MG/0.3 ML SQ SCH (07:06)
[2020-06-13] MEDS: FLUTICASONE 50MCG NASAL SPRAY NAS SCH (07:59)
[2020-06-13] MEDS: BUPROPRION HCL S R PO SCH (08:00)
[2020-06-13] MEDS ORDERED: ENOXAPARIN 40 MG/0.4 ML SQ SCH (08:00)
[2020-06-13] MEDS ORDERED: FLUTICASONE 50MCG NASAL SPRAY NAS SCH (08:00)
[2020-06-13] MEDS: FAMOTIDINE 20 MG TAB PO SCH (08:02)
[2020-06-13] MEDS: LORATADINE 10 MG TAB PO SCH (08:02)
[2020-06-13] MEDS: AMLODIPINE 5 MG TAB PO SCH (08:02)
[2020-06-13] MEDS: POTASSIUM CL SA 10 MEQ TAB PO SCH (08:02)
[2020-06-13] MEDS: TORSEMIDE 20 MG TAB PO SCH (08:02)
[2020-06-13] MEDS: CLOPIDOGREL 75 MG TABLET PO SCH (08:03)
[2020-06-13] MEDS: CLOTRIMAZ/BETAMETH CREAM 15GM TOP SCH ×3 (09:35→20:00)
[2020-06-13] MEDS: LACTULOSE 20 GM/30 ML UCUP PO PRN (14:50)
--- NOTE | 2020-06-13 17:58 | R.HP ---
HISTORY AND PHYSICAL FACILITY: [facility] ENCOUNTER DATE AND TIME: 06/13/2020 17:50 (CDT) MR#: [id number] NAME DEVAN LIMA ADDRESS: [address] [place] [address]: [facility] [id number] PHONE: DATE OF : 1935 AGE: 85 ROOM NUMBER: [id number] N# [id number] GENDER: Female DEXTERITY Right-handed MARITAL STATUS RACE White PRE-HOSPITAL LIVING SETTING 01 - Home (private home/apt. board/care, assisted living, intermediate, transitional living) PRE-HOSPITAL LIVING WITH Attendant ENCOUNTER PHYSICIAN: Dr. Erlin Cortez M.D. REFERRING DOCTOR: Dr. Mcgarry DATE OF ADMISSION: 06/12/2020 14:44 (CDT) REFERRING FACILITY [facility] TYPE AND DETAILS: Type of home: Assisted Living/[facility] # of levels in the residence: 1 # of steps to enter the residence: 0 # of steps within the residence: 0 ONSET DATE: 06/10/2020 PRIMARY DIAGNOSIS-RELATED SURGERIES: Emergency Closed REduction, Percutaneous Pinning Right Hip - performed by Dr. Jose on 06/11/2020 HISTORY OF PRESENT ILLNESS (HPI): Pt. is a 85 yo Right-handed white female. She has past medical history significant for diabetes, HTN and CHF. On 06/10/2020 she was admitted to [facility] and underwent emergency surgery for R Femoral F X (Closed Reduction, Percutaneous Pinning Right Hip) by Dr Jose. Pre-morbidly, Pt. was independent/mod-I in Locomotion, Transfers Control, Self-Care, Social Cognition , Sphincter Control, and Communication; and she had good Balance and Safety Awareness. Currently, she has deficits of Transfers Control, Balance, Locomotion, Safety Awareness, Self-Care, S ocial Cognition, Sphincter Control, and Communication. Pt. is now referred to [facility] for acute in-patient rehabilitation in order to maximize patient's functional independence in activities of daily living, strength, ROM, and mobi lity. Patient has realistic goal of being discharged at assistance level 5-sup to reside at To [facility] with Assistance. MEDICATION ALLERGIES: Penicillin ENVIRONMENTAL ALLERGIES: corn - Substance Allergies None Known - Other Allergies None Known PAST MEDICAL HISTORY: HTN Diabetes CHF REVIEW OF SYSTEMS: - Gen No Chills Fatigue No Fever - Eyes No Double Vision No itchiness - ENMT Difficulty Swallowing - CVS No Chest Discomfort No Chest Pain Fatigue No Weight Gain - Resp No Cough No Shortness of Breath - GI Continent No Abdominal Pain Constipation No Diarrhea - Continent No Kidney Pain No Painful Urination No Urinary Urgency - MSK No Joint Pain Muscle Cramps Stiffness - Skin No Itching No Rash No Suspicious Lesions - Neuro Coordination Difficulty No Difficulty with Concentration No Memory Loss No Seizures Weakness - Psych No Anxiety No Depression No HIV Exposure No Persistent Infections No Seasonal Allergies - Endo No Cold/Heat Intolerance No Excessive Hunger No Excessive Thirst No Excessive Urination PHYSICAL EXAM - Gen Alert and awake Lying in bed No apparent distress Oriented to: person, time, and place - Skin Right hip incision intact Normacephalic - Eyes No abnormalities - ENMT No abnormalities - Neck No abnormalities - CVS RRR - Resp Clear to auscultation - Abd + bowel sounds - GI Soft Deferred - No abnormalities - Ext Right hip surgical site has good hemostasis. - MSK 4+/5 weakness in right lower extremity - Neuro 4/5 strength right lower extremity - Psych No abnormalities VITAL SIGNS Temperature: 98.7 F SBP/DBP: 155/67 Pulse: 70 Resp: 16 NURSING: - Shower allowing shower - Skin care per protocol PRECAUTIONS: - Anterior Hip Precaution No abduction No active extension No adduction across midline No external rotation No hip flexion >90 degrees No internal rotation - Posterior Hip Precaution No adduction across midline No external rotation No hip flexion >90 degrees No internal rotation No wheel chair propulsion - Weight Bearing Precaution TTWB right LE ACTIVITIES OOB only with supervision QI SCORES: - Self-Care A. Eating 03-Partial/moderate assistance B. Oral hygiene 03-Partial/moderate assistance C. Toileting hygiene 01-Dependent E. Shower/bathe self 01-Dependent F. Upper body dressing 02-Substantial/maximal assistance G. Lower body dressing 88-Not attempted due to medical condition or safety concerns H. Putting on/taking off footwear 88-Not attempted due to medical condition or safety concerns - Mobility A. Roll left and right 01-Dependent B. Sit to lying 01-Dependent C. Lying to sitting on side of bed 01-Dependent D. Sit to stand 01-Dependent E. Chair/ecu-aq-knpgu transfer 01-Dependent F. Toilet transfer 01-Dependent G. Car transfer 88-Not attempted due to medical condition or safety concerns I. Walk 10 feet 01-Dependent J. Walk 50 feet with two turns 88-Not attempted due to medical condition or safety concerns K. Walk 150 feet 88-Not attempted due to medical condition or safety concerns L. Walking 10 feet on uneven surfaces 88-Not attempted due to medical condition or safety concerns M. 1 step (curb) 88-Not attempted due to medical condition or safety concerns N. 4 steps 88-Not attempted due to medical condition or safety concerns O. 12 steps 88-Not attempted due to medical condition or safety concerns P. Picking up object 88-Not attempted due to medical condition or safety concerns R. Wheel 50 feet with two turns 88-Not attempted due to medical condition or safety concerns S. Wheel 150 feet 88-Not attempted due to medical condition or safety concerns - Endurance Poor - Balance Poor - Safety Awareness Poor CURRENT FUNC. DEFICITS: Self-Care, Mobility, Endurance, Balance, and Safety Awareness MEDICATIONS: - N/A Continue see chart ASSESSMENT: Pt. is a 85 yo Right-handed white female.She has past medical history significant for diabetes, HTN a nd CHF.On 06/10/2020 she was admitted to [facility] and underwent emergency surgery for R Fe moral FX (Closed Reduction, Percutaneous Pinning Right Hip) by Dr Jose.Pre-morbidly, Pt. was indepen dent/mod-I in Locomotion, Transfers Control, Self-Care, Social Cognition, Sphincter Control, and Comm unication; and she had good Balance and Safety Awareness.Currently, she has deficits of Transfers Con trol, Balance, Locomotion, Safety Awareness, Self-Care, Social Cognition, Sphincter Control, and Comm unication.Pt. is now referred to [facility] for acute in-patient rehabilitatio n in order to maximize patient's functional independence in activities of daily living, strength, ROM , and mobility.- Rehab Goal Patient has realistic goal of being discharged at assistance level 5-sup to reside at To [facility] with Assistance. REHAB PLAN: - Physical Therapy Decreased range of motion - to improve, our physical therapists will perform initial evaluation of pt 's status upon admission and devise an individualized program for increasing patient's Range of Motio n. Gait dysfunction - to improve, our physical therapists will perform initial evaluation of pt's status upon admission and devise an individualized program for Gait Training, and Wheel Chair mobility Inability to transfer - to improve, our physical therapists will perform initial evaluation of pt's s tatus upon admission and devise an individualized program for Bed mobility Need for home safety evaluation - to improve, our physical therapists will perform initial evaluation of pt's status upon admission and devise an individualized program for Home Evaluation Need in caregiver upon discharge - to improve, our physical therapists will perform initial evaluatio n of pt's status upon admission and devise an individualized program for Caregiver Training New precaution - to improve, our physical therapists will perform initial evaluation of pt's status u salo admission and devise an individualized program for Patient precaution education Poor balance - to improve, our physical therapists will perform initial evaluation of pt's status upo n admission and devise an individualized program for Balance Training Weakness - to improve, our physical therapists will perform initial evaluation of pt's status upon ad mission and devise an individualized program for Aquatic Therapy, Neuromuscular Reeducation, and Stre ngthening Achieving independence - to improve, our physical therapists will perform initial evaluation of pt's status upon admission and devise an individualized program for Community Reintegration Activities - Occupational Therapy ADL deficits - to improve, our occupation therapists will perform initial evaluation of pt's status u salo admission and devise an individualized program for Bathing, Bed mobility, Community Reintegration , Cooking, Dressing, Eating, Fine Motor Skills, Grooming, Homemaking, Kitchen Mobility, Laundry, Margot ent Education, Safety Awareness, Splinting - Positioning, Transfers(Toilet, Tub, Shower), and Wheel C hair Management Cognitive deficits - to improve, our occupation therapists will perform initial evaluation of pt's st atus upon admission and devise an individualized program for Cognition - orientation Need for animal caretaker - to improve, our occupation therapists will perform initial evaluation of pt's s tatus upon admission and devise an individualized program for Caregiver Training Weakness - to improve, our occupation therapists will perform initial evaluation of pt's status upon admission and devise an individualized program for Aquatic Therapy, Balance, Endurance, UE ROM, and U E strengthening MEDICAL PLAN: - Anterior Hip Precaution No abduction No active extension No adduction across midline No external rotation No hip flexion >90 degrees No internal rotation - Diet - Liquid Texture Start Regular - Tube Feed Start N/A - Diet Type Start Regular - Posterior Hip Precaution No adduction across midline No external rotation No hip flexion >90 degrees No internal rotation No wheel chair propulsion - Weight Bearing Precaution TTWB right LE - N/A Continue see chart - Skin care per protocol - Other See attached MAR (Medication Administration Record) - Diet - Solid Texture Regular - Shower shower DISCHARGE PLAN: - Estimated Length of Stay (days) 14. - Consensus on plan Discharge plan has been discussed with primary caregiver. Patient/Family is in agreement with the delmer n. Primary caregiver is in agreement with the plan. - Patient/Family Goals Return home with assistance. - Planned Living Setting Upon Discharge To [facility], to live with Assistance. SIGNATURE PANEL: (CDT)
--- NOTE | 2020-06-13 18:00 | PAPE ---
POST ADMISSION PHYSICIAN EVALUATION PATIENT: [facility] MR# [id number] REFERRING DOCTOR Dr. Mcgarry EVALUATION DATE AND TIME 06/13/2020 17:58 (CDT) NAME DEVAN LIMA DATE OF 1935 AGE 85 PHONE SSN# [id number] GENDER female EVALUATING PHYSICIAN Dr. Erlin Cortez M.D. ADMISSION DIAGNOSIS: R Femoralfracture ONSET DATE 06/10/2020 POST-ADMISSION FUNCTIONAL/MEDICAL STATUS: - Walking Same score based on distance walked: 0(N/A) - Wheelchair Same score based on distance traveled: 0(N/A) STATUS CHANGE EVALUATION: No change in Functional or Medical Status is identified compared with Pre-Admission screening. PATIENT NEEDS CLOSE MEDICAL SUPERVISION BY A REHABILITATION PHYSICIAN FOR: Coordination of Treatment Team Post-Op Complications PATIENT REQUIRES 24X7 REHAB NURSING FOR MEDICAL AND FUNCTIONAL MGT. OF THE FOLLOWING DEFICITS: Disease Management Medication Management Patient/Family Education Providing Safe Environment PATIENT REQUIRES INTENSIVE, COORDINATED INTERDISCIPLINARY APPROACH TO REHAB: Arranging Home Equipment/Services Discharge Planning Family Intervention/Training Sfd[employer] Consultant/Case Management LIST OF IDENTIFIED AND POTENTIAL PROBLEMS: Alteration in leisure activities Infection, Actual or Potential Mobility Impaired Pain, Alteration in Comfort Self Care Deficit Skin Integrity, Actual or Potential Urinary Tract Infection (UTI), Actual or Potential PATIENT COULD BE AT RISK FOR COMPLICATIONS FROM ADVERSE MEDICAL CONDITIONS DUE TO HIS/HER COMORBIDITI ES AND THE RIGORS OF THE INTENSIVE REHABILLITATION PROGRAM. METHODS OR INTERVENTIONS TO AVOID COMPLIC ATIONS INCLUDE: - Infection Clinical staff to assess and manage the signs and symptoms of infection including fever, redness, war mth, etc. - Urinary Tract Infection - Falls Patient will be evaluated for Fall Precautions and will be placed on Fall Precautions as indicated pe r protocol. - Skin Breakdown Nursing will assess skin daily using assessment tool and will place on Skin Breakdown Precautions as indicated per protocol. - Pain Clinical staff may employ non-medication methods such as massage, distraction, decrease stimulus, etc . as needed. Clinical staff will assess patient's pain level every shift per protocol to assess and e nsure pain management effectiveness. Medications will be given and the pain level re-assessed. PRELIMINARY PLAN OF CARE: - Physical Therapy Patient needs Physical Therapy for a daily minimum of 1.5 hours at least 5 out of 7 days, to improve: Mobility, Strengthening, Transfers, Stretching, ROM, Endurance, Ability to manage stairs, Gait, and Balance. - Speech Therapy Patient needs Speech Therapy for a daily minimum of 0.5 hours at least 5 out of 7 days, to improve: S wallowing, Cognition, Language Skills, and Compensatory Strategies. - Rehabilitation Nursing Patient requires 24x7 Rehabilitation Nursing for: Pain Issues, Identifying and preventing risk factor s, Monitoring and reporting current medical conditions, Assisting with ambulation and transfer, Shandra ting with all ADL-s, Teaching patients about disease process and medications, Family teaching, Provid ing safe environment, Bowel and Bladder Issues, Skin Integrity, and Medication Management. Patient needs Sfdc Consultant and/or Case Management for: Discharge Planning, Arranging Home Equipmen t or Services, and Family Interventions. - Dietary and Nutrition Services Patient needs Dietary and Nutrition Services for: Adequate Nutrition, Nutritional Supplements, and Nu tritional Education. - Occupational Therapy Patient needs Occupational Therapy for a daily minimum of 1.5 hours at least 5 out of 7 days, to impr ove Activities of Daily Living, including: Eating, Grooming, Bathing, Dressing, Toileting, Toilet Tra nsfers, Community Reintegration, Higher functional activities, Adaptive Equipment, Splinting, Househo ld Tasks, and Other activities as determined. QI SCORES: - Self-Care A. Eating 03-Partial/moderate assistance B. Oral hygiene 03-Partial/moderate assistance C. Toileting hygiene 01-Dependent E. Shower/bathe self 01-Dependent F. Upper body dressing 02-Substantial/maximal assistance G. Lower body dressing 88-Not attempted due to medical condition or safety concerns H. Putting on/taking off footwear 88-Not attempted due to medical condition or safety concerns - Mobility A. Roll left and right 01-Dependent B. Sit to lying 01-Dependent C. Lying to sitting on side of bed 01-Dependent D. Sit to stand 01-Dependent E. Chair/ket-vf-rtsnu transfer 01-Dependent F. Toilet transfer 01-Dependent G. Car transfer 88-Not attempted due to medical condition or safety concerns I. Walk 10 feet 01-Dependent J. Walk 50 feet with two turns 88-Not attempted due to medical condition or safety concerns K. Walk 150 feet 88-Not attempted due to medical condition or safety concerns L. Walking 10 feet on uneven surfaces 88-Not attempted due to medical condition or safety concerns M. 1 step (curb) 88-Not attempted due to medical condition or safety concerns N. 4 steps 88-Not attempted due to medical condition or safety concerns O. 12 steps 88-Not attempted due to medical condition or safety concerns P. Picking up object 88-Not attempted due to medical condition or safety concerns R. Wheel 50 feet with two turns 88-Not attempted due to medical condition or safety concerns S. Wheel 150 feet 88-Not attempted due to medical condition or safety concerns - Endurance Poor - Balance Poor - Safety Awareness Poor POTENTIAL FUNCTIONAL GOALS FOR PATIENT TO ACHIEVE BY DISCHARGE: - Safety Precaution Patient will remain free from falls or injury at time of discharge. - Bed Mobility Patient will perform bed mobility at 4-Ina level of assistance. - Transfers Patient will complete transfers from bed to chair at 4-Ina level of assistance. - Mobility Patient will ambulate 150 ft with 4-Ina level of assistance with RW. PATIENT REHAB POTENTIAL SkylerGeraldine LIMA is able and expected to receive 3 hours of individualized therapy daily on at least 5 of nola 7 days Erich LIMA's prognosis for significant practical improvement within a reasonable period of time appear s Good Expected level of measurable improvement will be of a practical value to Erich LIMA's functional capac ity or adaptations to impairments Has a viable Discharge Plan Medically appropriate; condition is sufficiently stable to participate in intensive rehab program DISCHARGE PLAN: - Estimated Length of Stay (days) 14. - Consensus on plan Discharge plan has been discussed with primary caregiver. Patient/Family is in agreement with the delmer n. Primary caregiver is in agreement with the plan. - Patient/Family Goals Return home with assistance. - Planned Living Setting Upon Discharge To [facility], to live with Assistance. CONCLUSION ON REHABILITATION NECESSITY: I have evaluated patient's pre-admission functional status and, comparing it to the patient's post-ad mission functional status now, I conclude that the pre-admission assessment was accurate. Patient's c ondition on admission supports the medical necessity of admission to IRF. It is safe to proceed with patient's therapy program. SIGNATURE PANEL: (CDT)
[2020-06-13] MEDS: CRANBERRY FRUIT EXTRACT 200 MG CAP PO SCH ×2 (20:00→20:07)
[2020-06-13] MEDS: DOCUSATE NA/SENNA CONC 1 TAB PO PRN (20:08)
[2020-06-13] MEDS: PRAMIPEXOLE 0.25 MG TAB PO SCH ×2 (20:08→21:00)
[2020-06-13] MEDS: MELATONIN 3 MG TABLET PO PRN (20:08)
[2020-06-14] MEDS: ENOXAPARIN 30 MG/0.3 ML SQ SCH (07:07)
[2020-06-14] MEDS: BUPROPRION HCL S R PO SCH (08:00)
[2020-06-14] MEDS: CRANBERRY FRUIT EXTRACT 200 MG CAP PO SCH ×2 (08:25→20:49)
[2020-06-14] MEDS: FLUTICASONE 50MCG NASAL SPRAY NAS SCH (08:25)
[2020-06-14] MEDS: CLOTRIMAZ/BETAMETH CREAM 15GM TOP SCH ×2 (08:25→20:49)
[2020-06-14] MEDS: POTASSIUM CL SA 10 MEQ TAB PO SCH (08:25)
[2020-06-14] MEDS: TORSEMIDE 20 MG TAB PO SCH (08:26)
[2020-06-14] MEDS: FAMOTIDINE 20 MG TAB PO SCH (08:26)
[2020-06-14] MEDS: LORATADINE 10 MG TAB PO SCH (08:26)
[2020-06-14] MEDS: TRAMADOL HCL 50 MG TAB PO PRN ×3 (08:26→17:41)
[2020-06-14] MEDS: AMLODIPINE 5 MG TAB PO SCH (08:26)
[2020-06-14] MEDS: CLOPIDOGREL 75 MG TABLET PO SCH (08:26)
[2020-06-14] MEDS: LIDOCAINE 4% PATCH TOP SCH (11:48)
[2020-06-14] MEDS: LACTULOSE 20 GM/30 ML UCUP PO PRN (15:08)
[2020-06-14] MEDS: PRAMIPEXOLE 0.25 MG TAB PO SCH (20:49)
[2020-06-15] MEDS: BISACODYL 10 MG RECTAL SUPP PR PRN (05:30)
[2020-06-15] MEDS: TRAMADOL HCL 50 MG TAB PO PRN ×2 (06:34→11:12)
[2020-06-15] MEDS: ENOXAPARIN 30 MG/0.3 ML SQ SCH (06:35)
[2020-06-15 06:36] LABS: Absolute Lymphocytes (CBC) 3.1 K/uL (0.7-4.9); Basophils % 0.4 % (0-1.3); Hematocrit 27.8 % (36.0-45.0); MPV 7.2 fL (7.6-11.3)
[2020-06-15] MEDS: FLUTICASONE 50MCG NASAL SPRAY NAS SCH (06:36)
[2020-06-15 06:42] LABS: Albumin 2.5 g/dL (3.4-5.0); Magnesium 1.7 mg/dL (1.8-2.4); Potassium 3.5 mmol/L (3.5-5.1); Prealbumin 13.8 mg/dL (20-40)
[2020-06-15] MEDS: FE SULF/FA/VIT B COMP & C TAB PO SCH (08:24)
[2020-06-15] MEDS: POTASSIUM CL SA 10 MEQ TAB PO SCH (08:24)
[2020-06-15] MEDS: FERROUS SULFATE 325 MG TAB PO SCH (08:24)
[2020-06-15] MEDS: CRANBERRY FRUIT EXTRACT 200 MG CAP PO SCH ×2 (08:24→20:44)
[2020-06-15] MEDS: FAMOTIDINE 20 MG TAB PO SCH (08:25)
[2020-06-15] MEDS: LORATADINE 10 MG TAB PO SCH (08:25)
[2020-06-15] MEDS: AMLODIPINE 5 MG TAB PO SCH (08:25)
[2020-06-15] MEDS: TORSEMIDE 20 MG TAB PO SCH (08:25)
[2020-06-15] MEDS: CLOPIDOGREL 75 MG TABLET PO SCH (08:25)
[2020-06-15] MEDS: BUPROPRION HCL S R PO SCH (08:25)
[2020-06-15] MEDS: LIDOCAINE 4% PATCH TOP SCH (09:07)
[2020-06-15] MEDS: CLOTRIMAZ/BETAMETH CREAM 15GM TOP SCH ×2 (09:08→20:44)
[2020-06-15] MEDS: FLEET ENEMA ADULT PR PRN (14:01)
[2020-06-15] MEDS: PRAMIPEXOLE 0.25 MG TAB PO SCH (20:43)
[2020-06-15] MEDS: MELATONIN 3 MG TABLET PO PRN (20:44)
[2020-06-15] MEDS: DOCUSATE NA/SENNA CONC 1 TAB PO PRN (20:44)
[2020-06-16] MEDS: FLUTICASONE 50MCG NASAL SPRAY NAS SCH (06:28)
[2020-06-16] MEDS: LIDOCAINE 4% PATCH TOP SCH (06:29)
[2020-06-16] MEDS: CLOTRIMAZ/BETAMETH CREAM 15GM TOP SCH ×2 (06:29→20:45)
[2020-06-16] MEDS: ENOXAPARIN 30 MG/0.3 ML SQ SCH (06:29)
[2020-06-16] MEDS: TRAMADOL HCL 50 MG TAB PO PRN ×3 (06:51→20:50)
[2020-06-16] MEDS: CRANBERRY FRUIT EXTRACT 200 MG CAP PO SCH ×2 (07:52→20:45)
[2020-06-16] MEDS: BUPROPRION HCL S R PO SCH (07:52)
[2020-06-16] MEDS: LORATADINE 10 MG TAB PO SCH (07:53)
[2020-06-16] MEDS: FERROUS SULFATE 325 MG TAB PO SCH (07:53)
[2020-06-16] MEDS: POTASSIUM CL SA 10 MEQ TAB PO SCH (07:53)
[2020-06-16] MEDS: TORSEMIDE 20 MG TAB PO SCH (07:53)
[2020-06-16] MEDS: FE SULF/FA/VIT B COMP & C TAB PO SCH (07:53)
[2020-06-16] MEDS: CLOPIDOGREL 75 MG TABLET PO SCH (07:53)
[2020-06-16] MEDS: FAMOTIDINE 20 MG TAB PO SCH (07:53)
[2020-06-16] MEDS: AMLODIPINE 5 MG TAB PO SCH (07:54)
--- NOTE | 2020-06-16 09:58 | P.RH.PN ---
Estimated Length of Stay: 17 Expected Discharge Date: 06/28/20 Discharge Disposition Plan: Residential Facility Family Support: Yes Halfway Goal: Mobility, Transfers, Self Care Vital Signs: Last Vital Signs Temp 97.3 F 06/16/20 07:40 Pulse 66 06/16/20 07:54 Resp 18 06/16/20 07:51 BP 143/74 H 06/16/20 07:54 Pulse Ox 98 06/16/20 07:51 Laboratory: Laboratory Last Values WBC 8.40 K/uL (4.3-10.9) D 06/15/20 05:48 RBC 3.20 M/uL (3.86-4.86) L 06/15/20 05:48 Hgb 9.4 g/dL (12.0-15.0) L 06/15/20 05:48 Hct 27.8 % (36.0-45.0) L 06/15/20 05:48 MCV 86.7 fL (80-100) 06/15/20 05:48 MCH 29.3 pg (27.0-35.0) 06/15/20 05:48 MCHC 33.8 g/dL (32.0-36.0) 06/15/20 05:48 RDW 15.8 % (12.1-15.2) H 06/15/20 05:48 Plt Count 318 K/uL (152-406) 06/15/20 05:48 MPV 7.2 fL (7.6-11.3) L 06/15/20 05:48 Neutrophils % 49.8 % (41.7-73.7) 06/15/20 05:48 Lymphocytes % 37.0 % (15.3-44.8) 06/15/20 05:48 Monocytes % 9.9 % (3.3-12.3) 06/15/20 05:48 Eosinophils % 2.9 % (0-4.4) 06/15/20 05:48 Basophils % 0.4 % (0-1.3) 06/15/20 05:48 Absolute Neutrophils 4.2 K/uL (1.8-8.0) 06/15/20 05:48 Absolute Lymphocytes 3.1 K/uL (0.7-4.9) 06/15/20 05:48 Absolute Monocytes 0.8 K/uL (0.1-1.3) 06/15/20 05:48 Absolute Eosinophils 0.2 K/uL (0-0.5) 06/15/20 05:48 Absolute Basophils 0.0 K/uL (0-0.5) 06/15/20 05:48 Sodium 141 mmol/L (136-145) 06/15/20 05:48 Potassium 3.5 mmol/L (3.5-5.1) 06/15/20 05:48 Chloride 108 mmol/L (98-107) H 06/15/20 05:48 Carbon Dioxide 27 mmol/L (21-32) 06/15/20 05:48 BUN 17 mg/dL (7-18) 06/15/20 05:48 Creatinine 1.13 mg/dL (0.55-1.3) 06/15/20 05:48 Estimated GFR 46 mL/min (=/>90) L 06/15/20 05:48 Glucose 98 mg/dL (74-106) 06/15/20 05:48 POC Glucose 101 mg/dL (65-120) 06/16/20 07:02 Calcium 8.9 mg/dL (8.5-10.1) 06/15/20 05:48 Magnesium 1.7 mg/dL (1.8-2.4) L 06/15/20 05:48 Albumin 2.5 g/dL (3.4-5.0) L 06/15/20 05:48 Prealbumin 13.8 mg/dL (20-40) L 06/15/20 05:48 Urine Color Yellow (Yellow) 06/12/20 21:04 Urine Appearance Cloudy (Clear) 06/12/20 21:04 Urine pH 6.0 (5.0-7.0) 06/12/20 21:04 Ur Specific [place] 1.020 (1.005-1.030) 06/12/20 21:04 Glucose (UA)(Auto) Negative (Negative) 06/12/20 21:04 Urine Ketones Negative (Negative) 06/12/20 21:04 Urine Blood Negative (Negative) 06/12/20 21:04 Urine Nitrite Negative (Negative) 06/12/20 21:04 Urine Bilirubin Negative (Negataive) 06/12/20 21:04 Urine Urobilinogen 0.2 mg/dL (0.2-1.0) 06/12/20 21:04 Ur Leukocyte Esterase 3+ (Negative) H 06/12/20 21:04 Urine RBC <5 /HPF (NONE SEEN) 06/12/20 21:04 Urine WBC 5-10 /HPF (<5) H 06/12/20 21:04 Ur Squamous Epith Cells 10-20 /HPF (NONE SEEN) H 06/12/20 21:04 Urine Bacteria <20 /HPF (<20) 06/12/20 21:04 Urine Mucus 1+ /HPF (NONE SEEN) 06/12/20 21:04 Urine Culture Reflexed Not needed 06/12/20 21:04 Urine Total Protein Trace (Negative) H 06/12/20 21:04 Weight: 161 lb Wound Present: No Closed Surgical Incision Present: Yes Negative Pressure Wound Therapy Present: No Physician Update: She is at maximum assistance with transfers and mobilization. She scored 7/30 with severe cognitive impairment. Poor safety awareness and memory formation. She is not able to keep weight bearing status. She will require a memory care unit at discharge due very high risk of poor decision making resulting in further injury. 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 Please see the Rehabilitation Signature page for all necessary signatures.
[2020-06-16] MEDS: DOCUSATE NA/SENNA CONC 1 TAB PO PRN (20:46)
[2020-06-16] MEDS: MELATONIN 3 MG TABLET PO PRN (20:46)
[2020-06-16] MEDS: PRAMIPEXOLE 0.25 MG TAB PO SCH (20:46)
[2020-06-17] MEDS: TRAMADOL HCL 50 MG TAB PO PRN ×2 (06:40→20:15)
[2020-06-17] MEDS: ENOXAPARIN 30 MG/0.3 ML SQ SCH (09:14)
[2020-06-17] MEDS: LIDOCAINE 4% PATCH TOP SCH (09:14)
[2020-06-17] MEDS: CLOTRIMAZ/BETAMETH CREAM 15GM TOP SCH (09:15)
[2020-06-17] MEDS: POTASSIUM CL SA 10 MEQ TAB PO SCH (09:15)
[2020-06-17] MEDS: CLOPIDOGREL 75 MG TABLET PO SCH (09:16)
[2020-06-17] MEDS: FE SULF/FA/VIT B COMP & C TAB PO SCH (09:16)
[2020-06-17] MEDS: FERROUS SULFATE 325 MG TAB PO SCH (09:16)
[2020-06-17] MEDS: CRANBERRY FRUIT EXTRACT 200 MG CAP PO SCH ×2 (09:16→20:15)
[2020-06-17] MEDS: TORSEMIDE 20 MG TAB PO SCH (09:17)
[2020-06-17] MEDS: LORATADINE 10 MG TAB PO SCH (09:17)
[2020-06-17] MEDS: AMLODIPINE 5 MG TAB PO SCH (09:17)
[2020-06-17] MEDS: FAMOTIDINE 20 MG TAB PO SCH (09:18)
[2020-06-17] MEDS: BUPROPRION HCL S R PO SCH (09:19)
[2020-06-17] MEDS: FLUTICASONE 50MCG NASAL SPRAY NAS SCH (09:20)
[2020-06-17] MEDS: ONDANSETRON 4 MG (ODT) TAB PO PRN (11:13)
[2020-06-17 12:45] LABS: Absolute Lymphocytes (CBC) 2.6 K/uL (0.7-4.9); Basophils % 0.4 % (0-1.3); Hematocrit 29.6 % (36.0-45.0); MPV 7.2 fL (7.6-11.3)
[2020-06-17 12:59] LABS: Potassium 3.4 mmol/L (3.5-5.1)
--- NOTE | 2020-06-17 13:35 | RAD REPORT ---
EXAM DESCRIPTION: RAD - Abdomen 1 View (KUB) - 06/17/2020 1:03 pm CLINICAL HISTORY: constipation COMPARISON: No comparisons FINDINGS: Large amount of stool is present distending the colon from cecum to proximal sigmoid colon . Air is present filling but not distending the distal sigmoid and rectum portions of the colon. No small bowel dilatation or gastric dilatation seen. No obstruction, free air or pneumatosis. No jose picious calcifications. Degenerative and postsurgical changes are present in the spine with left convex scoliosis. Hardware i s in place from recent right femur fracture repair. IMPRESSION: Constipation pattern with a large amount of stool distending the colon from the cecum to the proximal sigmoid colon.
[2020-06-17] MEDS: FLEET ENEMA ADULT PR PRN ×2 (15:24→16:00)
[2020-06-17] MEDS: BISACODYL 10 MG RECTAL SUPP PR PRN (15:57)
[2020-06-17] MEDS: LACTULOSE 20 GM/30 ML UCUP PO PRN (17:34)
[2020-06-17] MEDS: DOCUSATE NA/SENNA CONC 1 TAB PO PRN (20:15)
[2020-06-17] MEDS: PRAMIPEXOLE 0.25 MG TAB PO SCH (20:16)
[2020-06-17] MEDS: MELATONIN 3 MG TABLET PO PRN (20:16)
[2020-06-17] MEDS: NYSTATIN PWDR 100000 UNIT/GM TOP SCH (20:17)
[2020-06-18] MEDS: ENOXAPARIN 30 MG/0.3 ML SQ SCH (06:28)
[2020-06-18] MEDS: FLUTICASONE 50MCG NASAL SPRAY NAS SCH (08:57)
[2020-06-18] MEDS: POLYETHYL GLY 3350 17 GM/DOSE PO SCH (08:58)
[2020-06-18] MEDS: LIDOCAINE 4% PATCH TOP SCH (08:58)
[2020-06-18] MEDS: TORSEMIDE 20 MG TAB PO SCH (08:59)
[2020-06-18] MEDS: BUPROPRION HCL S R PO SCH (08:59)
[2020-06-18] MEDS: CRANBERRY FRUIT EXTRACT 200 MG CAP PO SCH ×2 (08:59→20:22)
[2020-06-18] MEDS: POTASSIUM CL SA 10 MEQ TAB PO SCH ×2 (09:00→20:22)
[2020-06-18] MEDS: FE SULF/FA/VIT B COMP & C TAB PO SCH (09:00)
[2020-06-18] MEDS: CLOPIDOGREL 75 MG TABLET PO SCH (09:00)
[2020-06-18] MEDS: AMLODIPINE 5 MG TAB PO SCH (09:01)
[2020-06-18] MEDS: FERROUS SULFATE 325 MG TAB PO SCH (09:01)
[2020-06-18] MEDS: FAMOTIDINE 20 MG TAB PO SCH (09:02)
[2020-06-18] MEDS: NYSTATIN PWDR 100000 UNIT/GM TOP SCH ×2 (09:03→20:00)
[2020-06-18] MEDS: LORATADINE 10 MG TAB PO SCH (09:05)
[2020-06-18] MEDS: BISACODYL 10 MG RECTAL SUPP PR PRN (10:50)
[2020-06-18] MEDS: ONDANSETRON 4 MG (ODT) TAB PO PRN ×2 (10:50→20:22)
[2020-06-18] MEDS: MAGNESIUM HYDROXIDE 8% 30 ML PO PRN (13:22)
[2020-06-18] MEDS: MAGNESIUM OXIDE 400 MG TAB PO SCH (20:00)
[2020-06-18] MEDS: PRAMIPEXOLE 0.25 MG TAB PO SCH (20:22)
[2020-06-18] MEDS: DOCUSATE NA/SENNA CONC 1 TAB PO PRN (20:22)
[2020-06-18] MEDS: MELATONIN 3 MG TABLET PO PRN (20:22)
[2020-06-18] MEDS: TRAMADOL HCL 50 MG TAB PO PRN (20:23)
[2020-06-19] MEDS: ENOXAPARIN 30 MG/0.3 ML SQ SCH (06:32)
[2020-06-19] MEDS: FLUTICASONE 50MCG NASAL SPRAY NAS SCH (06:33)
[2020-06-19] MEDS: TRAMADOL HCL 50 MG TAB PO PRN ×2 (06:36→12:07)
[2020-06-19] MEDS: LIDOCAINE 4% PATCH TOP SCH (06:45)
[2020-06-19] MEDS: BUPROPRION HCL S R PO SCH (07:59)
[2020-06-19] MEDS: MAGNESIUM OXIDE 400 MG TAB PO SCH ×2 (07:59→20:44)
[2020-06-19] MEDS: CRANBERRY FRUIT EXTRACT 200 MG CAP PO SCH ×2 (07:59→20:44)
[2020-06-19] MEDS: FERROUS SULFATE 325 MG TAB PO SCH (08:00)
[2020-06-19] MEDS: TORSEMIDE 20 MG TAB PO SCH (08:00)
[2020-06-19] MEDS: POTASSIUM CL SA 10 MEQ TAB PO SCH ×2 (08:00→20:44)
[2020-06-19] MEDS: FE SULF/FA/VIT B COMP & C TAB PO SCH (08:00)
[2020-06-19] MEDS: CLOPIDOGREL 75 MG TABLET PO SCH (08:01)
[2020-06-19] MEDS: LORATADINE 10 MG TAB PO SCH (08:01)
[2020-06-19] MEDS: AMLODIPINE 5 MG TAB PO SCH (08:01)
[2020-06-19] MEDS: POLYETHYL GLY 3350 17 GM/DOSE PO SCH (08:03)
[2020-06-19] MEDS: FAMOTIDINE 20 MG TAB PO SCH (08:50)
[2020-06-19] MEDS: NYSTATIN PWDR 100000 UNIT/GM TOP SCH ×2 (08:50→20:44)
[2020-06-19] MEDS: FLEET ENEMA ADULT PR PRN (14:38)
--- NOTE | 2020-06-19 18:30 | R.PN ---
PROGRESS NOTES ENCOUNTER DATE AND TIME: 06/19/2020 18:25 (CDT) NAME DEVAN LIMA DATE OF : 1935 DATE OF ADMISSION: 06/12/2020 14:44 (CDT) R Femoralfracture CHIEF COMPLAINT: Right femur fracture SUBJECTIVE: Pt denied any depression. Pt denied any Shortness of Breath. WBC is normal at 8.4, Hgb is 9.9, prealbumin 13.8, glucose 93 to 137, UA shows 3+ esterase, WBC 5-10. Propelled wheelchair 150' with contact guard assistance. VITAL SIGNS Temperature: 98.4 F SBP/DBP: 137/96 Pulse: 76 Resp: 16 MEDICATION ALLERGIES: Penicillin ENVIRONMENTAL ALLERGIES: corn - Substance Allergies None Known - Other Allergies None Known NURSING: - Shower allowing shower - Skin care per protocol PRECAUTIONS: - Anterior Hip Precaution No abduction No active extension No adduction across midline No external rotation No hip flexion >90 degrees No internal rotation - Posterior Hip Precaution No adduction across midline No external rotation No hip flexion >90 degrees No internal rotation No wheel chair propulsion - Weight Bearing Precaution TTWB right LE ACTIVITIES OOB only with supervision THERAPIES: - Dietary and Nutrition Adequate Nutrition. Nutritional Education. Nutritional Supplements. PHYSICAL EXAM - Gen Alert and awake Lying in bed No apparent distress Oriented to: person, time, and place - Skin Right hip incision intact Normacephalic - Eyes No abnormalities - ENMT No abnormalities - Neck No abnormalities - CVS RRR - Resp Clear to auscultation - Abd + bowel sounds - GI Soft Deferred - No abnormalities - Ext Right hip surgical site has good hemostasis. - MSK 4+/5 weakness in right lower extremity - Neuro 4/5 strength right lower extremity - Psych No abnormalities ASSESSMENT: Pt. is a 85 yo Right-handed white female.She has past medical history significant for diabetes, HTN a nd CHF.On 06/10/2020 she was admitted to [facility] and underwent emergency surgery for R Fe moral FX (Closed Reduction, Percutaneous Pinning Right Hip) by Dr Jose.Pre-morbidly, Pt. was indepen dent/mod-I in Locomotion, Transfers Control, Self-Care, Social Cognition, Sphincter Control, and Comm unication; and she had good Balance and Safety Awareness.Currently, she has deficits of Transfers Con trol, Balance, Locomotion, Safety Awareness, Self-Care, Social Cognition, Sphincter Control, and Comm unication.Pt. is now referred to [facility] for acute in-patient rehabilitatio n in order to maximize patient's functional independence in activities of daily living, strength, ROM , and mobility.- Rehab Goal Patient has realistic goal of being discharged at assistance level 5-sup to reside at [facility] with Assistance. MDM/PLAN: - Physical Therapy Decreased range of motion - to improve, our physical therapists will perform initial evaluation of p t's status upon admission and devise an individualized program for increasing patient's Range of Gian on. Gait dysfunction - to improve, our physical therapists will perform initial evaluation of pt's statu s upon admission and devise an individualized program for Gait Training, and Wheel Chair mobility Inability to transfer - to improve, our physical therapists will perform initial evaluation of pt's status upon admission and devise an individualized program for Bed mobility Need for home safety evaluation - to improve, our physical therapists will perform initial evaluatio n of pt's status upon admission and devise an individualized program for Home Evaluation Need in caregiver upon discharge - to improve, our physical therapists will perform initial evaluati on of pt's status upon admission and devise an individualized program for Caregiver Training New precaution - to improve, our physical therapists will perform initial evaluation of pt's status upon admission and devise an individualized program for Patient precaution education Poor balance - to improve, our physical therapists will perform initial evaluation of pt's status up on admission and devise an individualized program for Balance Training Weakness - to improve, our physical therapists will perform initial evaluation of pt's status upon a dmission and devise an individualized program for Aquatic Therapy, Neuromuscular Reeducation, and Str engthening Achieving independence - to improve, our physical therapists will perform initial evaluation of pt's status upon admission and devise an individualized program for Community Reintegration Activities - Occupational Therapy ADL deficits - to improve, our occupation therapists will perform initial evaluation of pt's status upon admission and devise an individualized program for Bathing, Bed mobility, Community Reintegratio n, Cooking, Dressing, Eating, Fine Motor Skills, Grooming, Homemaking, Kitchen Mobility, Laundry, Pat ient Education, Safety Awareness, Splinting - Positioning, Transfers(Toilet, Tub, Shower), and Wheel Chair Management Cognitive deficits - to improve, our occupation therapists will perform initial evaluation of pt's s tatus upon admission and devise an individualized program for Cognition - orientation 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, our occupation therapists will perform initial evaluation of pt's status upon admission and devise an individualized program for Caregiver Training Weakness - to improve, our occupation therapists will perform initial evaluation of pt's status upon admission and devise an individualized program for Aquatic Therapy, Balance, Endurance, UE ROM, and UE strengthening - N/A Continue see chart - Anterior Hip Precaution No abduction No active extension No adduction across midline No external rotation No hip flexion >90 degrees No internal rotation - Diet - Liquid Texture Continue Regular - Tube Feed Continue N/A - Diet Type Continue Regular - Posterior Hip Precaution No adduction across midline No external rotation No hip flexion >90 degrees No internal rotation No wheel chair propulsion - Weight Bearing Precaution TTWB right LE - Skin care per protocol - Other See attached MAR (Medication Administration Record) - Diet - Solid Texture Continue Regular - Shower allowing shower FUNCTIONAL STATUS: UPDATED AT WEEKLY TEAM CONFERENCE - Walking Same score based on distance walked: 0(N/A) - Wheelchair Same score based on distance traveled: 0(N/A) FUNCTIONAL STATUS: - Self-Care A. Eating Ind B. Grooming sup C. Bathing Ina D. Dressing - Upper sup E. Dressing - Lower Ina F. Toileting Ina - Sphincter Control G. Bladder control sup H. Bowel control sup - Transfers Control I. Bed/Chair/Wheelchair sup J. Toilet sup K. Tub/Shower Ina - Locomotion L. Walk/Wheelchair (B) Ina M. Stairs ADNO - Communication N. Comprehension (B) Ina O. Expression (B) Ina - Social Cognition P. Social Interaction Zhen Q. Problem Solving Zhen R. Memory Zhen - Endurance Fair - Balance Fair - Safety Awareness Fair QI SCORES: - Self-Care A. Eating 03-Partial/moderate assistance B. Oral hygiene 03-Partial/moderate assistance C. Toileting hygiene 01-Dependent E. Shower/bathe self 01-Dependent F. Upper body dressing 02-Substantial/maximal assistance G. Lower body dressing 88-Not attempted due to medical condition or safety concerns H. Putting on/taking off footwear 88-Not attempted due to medical condition or safety concerns - Mobility A. Roll left and right 01-Dependent B. Sit to lying 01-Dependent C. Lying to sitting on side of bed 01-Dependent D. Sit to stand 01-Dependent E. Chair/izm-rp-pymuu transfer 01-Dependent F. Toilet transfer 01-Dependent G. Car transfer 88-Not attempted due to medical condition or safety concerns I. Walk 10 feet 01-Dependent J. Walk 50 feet with two turns 88-Not attempted due to medical condition or safety concerns K. Walk 150 feet 88-Not attempted due to medical condition or safety concerns L. Walking 10 feet on uneven surfaces 88-Not attempted due to medical condition or safety concerns M. 1 step (curb) 88-Not attempted due to medical condition or safety concerns N. 4 steps 88-Not attempted due to medical condition or safety concerns O. 12 steps 88-Not attempted due to medical condition or safety concerns P. Picking up object 88-Not attempted due to medical condition or safety concerns R. Wheel 50 feet with two turns 88-Not attempted due to medical condition or safety concerns S. Wheel 150 feet 88-Not attempted due to medical condition or safety concerns - Endurance Poor - Balance Poor - Safety Awareness Poor CURRENT [facility]. DEFICITS: Self-Care, Mobility, Endurance, Balance, and Safety Awareness SIGNATURE PANEL: (CDT)
[2020-06-19] MEDS: PRAMIPEXOLE 0.25 MG TAB PO SCH (20:44)
[2020-06-20] MEDS: TRAMADOL HCL 50 MG TAB PO PRN ×2 (06:34→12:13)
[2020-06-20] MEDS: LIDOCAINE 4% PATCH TOP SCH (06:35)
[2020-06-20] MEDS: ENOXAPARIN 30 MG/0.3 ML SQ SCH (06:36)
[2020-06-20] MEDS: FLUTICASONE 50MCG NASAL SPRAY NAS SCH (06:36)
[2020-06-20] MEDS: NYSTATIN PWDR 100000 UNIT/GM TOP SCH ×2 (06:37→21:43)
[2020-06-20] MEDS: CRANBERRY FRUIT EXTRACT 200 MG CAP PO SCH ×2 (08:47→21:42)
[2020-06-20] MEDS: POLYETHYL GLY 3350 17 GM/DOSE PO SCH (08:47)
[2020-06-20] MEDS: BUPROPRION HCL S R PO SCH (08:48)
[2020-06-20] MEDS: FERROUS SULFATE 325 MG TAB PO SCH (08:48)
[2020-06-20] MEDS: TORSEMIDE 20 MG TAB PO SCH (08:48)
[2020-06-20] MEDS: CLOPIDOGREL 75 MG TABLET PO SCH (08:48)
[2020-06-20] MEDS: MAGNESIUM OXIDE 400 MG TAB PO SCH ×2 (08:48→21:43)
[2020-06-20] MEDS: LORATADINE 10 MG TAB PO SCH (08:48)
[2020-06-20] MEDS: FE SULF/FA/VIT B COMP & C TAB PO SCH (08:48)
[2020-06-20] MEDS: FAMOTIDINE 20 MG TAB PO SCH (08:48)
[2020-06-20] MEDS: AMLODIPINE 5 MG TAB PO SCH (08:49)
[2020-06-20] MEDS: POTASSIUM CL SA 10 MEQ TAB PO SCH ×2 (08:49→21:43)
[2020-06-20] MEDS: ONDANSETRON 4 MG (ODT) TAB PO PRN ×2 (10:02→17:18)
--- NOTE | 2020-06-20 15:19 | RAD REPORT ---
EXAM DESCRIPTION: RAD - Abdomen 1 View (KUB) - 06/20/2020 3:05 pm CLINICAL HISTORY: Abdomen pain. FINDINGS: The bowel gas pattern is unremarkable. Large amount stool is present throughout colon. Postsurgical changes involve the spine. [id number] scoliosis.
[2020-06-20 17:24] LABS: ALT/SGPT 16 U/L (12-78); AST/SGOT 14 U/L (15-37); Albumin 3.2 g/dL (3.4-5.0); Alkaline Phosphatase 102 U/L (45-117); Bilirubin Direct < 0.1 mg/dL (0-0.2); Bilirubin Total 0.3 mg/dL (0.2-1.0); Protein, Total 7.8 g/dL (6.4-8.2)
[2020-06-20] MEDS: FLEET ENEMA ADULT PR PRN (17:44)
--- NOTE | 2020-06-20 18:24 | R.PN ---
PROGRESS NOTES ENCOUNTER DATE AND TIME: 06/20/2020 18:19 (CDT) NAME DEVAN LIMA DATE OF : 1935 DATE OF ADMISSION: 06/12/2020 14:44 (CDT) R Femoralfracture CHIEF COMPLAINT: Right femur fracture SUBJECTIVE: Pt denied any depression. Pt denied any Shortness of Breath. WBC is normal at 8.4, Hgb is 9.9, prealbumin 13.8, glucose 93 to 137, UA shows 3+ esterase, WBC 5-10. Multiple sit to stands done with moderate to maximum assistance. Self-propelled wheelchair 200' with contact guard assistance. VITAL SIGNS Temperature: 98.4 F SBP/DBP: 134/73 Pulse: 71 Resp: 16 MEDICATION ALLERGIES: Penicillin ENVIRONMENTAL ALLERGIES: corn - Substance Allergies None Known - Other Allergies None Known NURSING: - Shower allowing shower - Skin care per protocol PRECAUTIONS: - Anterior Hip Precaution No abduction No active extension No adduction across midline No external rotation No hip flexion >90 degrees No internal rotation - Posterior Hip Precaution No adduction across midline No external rotation No hip flexion >90 degrees No internal rotation No wheel chair propulsion - Weight Bearing Precaution TTWB right LE ACTIVITIES OOB only with supervision THERAPIES: - Dietary and Nutrition Adequate Nutrition. Nutritional Education. Nutritional Supplements. PHYSICAL EXAM - Gen Alert and awake Lying in bed No apparent distress Oriented to: person, time, and place - Skin Right hip incision intact Normacephalic - Eyes No abnormalities - ENMT No abnormalities - Neck No abnormalities - CVS RRR - Resp Clear to auscultation - Abd + bowel sounds - GI Soft Deferred - No abnormalities - Ext Right hip surgical site has good hemostasis. - MSK 4+/5 weakness in right lower extremity - Neuro 4/5 strength right lower extremity - Psych No abnormalities ASSESSMENT: Pt. is a 85 yo Right-handed white female.She has past medical history significant for diabetes, HTN a nd CHF.On 06/10/2020 she was admitted to [facility] and underwent emergency surgery for R Fe moral FX (Closed Reduction, Percutaneous Pinning Right Hip) by Dr Jose.Pre-morbidly, Pt. was indepen dent/mod-I in Locomotion, Transfers Control, Self-Care, Social Cognition, Sphincter Control, and Comm unication; and she had good Balance and Safety Awareness.Currently, she has deficits of Transfers Con trol, Balance, Locomotion, Safety Awareness, Self-Care, Social Cognition, Sphincter Control, and Comm unication.Pt. is now referred to [facility] for acute in-patient rehabilitatio n in order to maximize patient's functional independence in activities of daily living, strength, ROM , and mobility.- Rehab Goal Patient has realistic goal of being discharged at assistance level 5-sup to reside at [facility] with Assistance. MDM/PLAN: - Physical Therapy Decreased range of motion - to improve, our physical therapists will perform initial evaluation of p t's status upon admission and devise an individualized program for increasing patient's Range of Gian on. Gait dysfunction - to improve, our physical therapists will perform initial evaluation of pt's statu s upon admission and devise an individualized program for Gait Training, and Wheel Chair mobility Inability to transfer - to improve, our physical therapists will perform initial evaluation of pt's status upon admission and devise an individualized program for Bed mobility Need for home safety evaluation - to improve, our physical therapists will perform initial evaluatio n of pt's status upon admission and devise an individualized program for Home Evaluation Need in caregiver upon discharge - to improve, our physical therapists will perform initial evaluati on of pt's status upon admission and devise an individualized program for Caregiver Training New precaution - to improve, our physical therapists will perform initial evaluation of pt's status upon admission and devise an individualized program for Patient precaution education Poor balance - to improve, our physical therapists will perform initial evaluation of pt's status up on admission and devise an individualized program for Balance Training Weakness - to improve, our physical therapists will perform initial evaluation of pt's status upon a dmission and devise an individualized program for Aquatic Therapy, Neuromuscular Reeducation, and Str engthening Achieving independence - to improve, our physical therapists will perform initial evaluation of pt's status upon admission and devise an individualized program for Community Reintegration Activities - Occupational Therapy ADL deficits - to improve, our occupation therapists will perform initial evaluation of pt's status upon admission and devise an individualized program for Bathing, Bed mobility, Community Reintegratio n, Cooking, Dressing, Eating, Fine Motor Skills, Grooming, Homemaking, Kitchen Mobility, Laundry, Pat ient Education, Safety Awareness, Splinting - Positioning, Transfers(Toilet, Tub, Shower), and Wheel Chair Management Cognitive deficits - to improve, our occupation therapists will perform initial evaluation of pt's s tatus upon admission and devise an individualized program for Cognition - orientation Need for tire care manager - to improve, our occupation therapists will perform initial evaluation of pt's status upon admission and devise an individualized program for Caregiver Training Weakness - to improve, our occupation therapists will perform initial evaluation of pt's status upon admission and devise an individualized program for Aquatic Therapy, Balance, Endurance, UE ROM, and UE strengthening - N/A Continue see chart - Anterior Hip Precaution No abduction No active extension No adduction across midline No external rotation No hip flexion >90 degrees No internal rotation - Diet - Liquid Texture Continue Regular - Tube Feed Continue N/A - Diet Type Continue Regular - Posterior Hip Precaution No adduction across midline No external rotation No hip flexion >90 degrees No internal rotation No wheel chair propulsion - Weight Bearing Precaution TTWB right LE - Skin care per protocol - Other See attached MAR (Medication Administration Record) - Diet - Solid Texture Continue Regular - Shower allowing shower FUNCTIONAL STATUS: UPDATED AT WEEKLY TEAM CONFERENCE - Walking Same score based on distance walked: 0(N/A) - Wheelchair Same score based on distance traveled: 0(N/A) FUNCTIONAL STATUS: - Self-Care A. Eating Ind B. Grooming sup C. Bathing Ina D. Dressing - Upper sup E. Dressing - Lower Ina F. Toileting Ina - Sphincter Control G. Bladder control sup H. Bowel control sup - Transfers Control I. Bed/Chair/Wheelchair sup J. Toilet sup K. Tub/Shower Ina - Locomotion L. Walk/Wheelchair (B) Ina M. Stairs ADNO - Communication N. Comprehension (B) Ina O. Expression (B) Ina - Social Cognition P. Social Interaction Zhen Q. Problem Solving Zhen R. Memory Zhen - Endurance Fair - Balance Fair - Safety Awareness Fair QI SCORES: - Self-Care A. Eating 03-Partial/moderate assistance B. Oral hygiene 03-Partial/moderate assistance C. Toileting hygiene 01-Dependent E. Shower/bathe self 01-Dependent F. Upper body dressing 02-Substantial/maximal assistance G. Lower body dressing 88-Not attempted due to medical condition or safety concerns H. Putting on/taking off footwear 88-Not attempted due to medical condition or safety concerns - Mobility A. Roll left and right 01-Dependent B. Sit to lying 01-Dependent C. Lying to sitting on side of bed 01-Dependent D. Sit to stand 01-Dependent E. Chair/[id number] transfer 01-Dependent F. Toilet transfer 01-Dependent G. Car transfer 88-Not attempted due to medical condition or safety concerns I. Walk 10 feet 01-Dependent J. Walk 50 feet with two turns 88-Not attempted due to medical condition or safety concerns K. Walk 150 feet 88-Not attempted due to medical condition or safety concerns L. Walking 10 feet on uneven surfaces 88-Not attempted due to medical condition or safety concerns M. 1 step (curb) 88-Not attempted due to medical condition or safety concerns N. 4 steps 88-Not attempted due to medical condition or safety concerns O. 12 steps 88-Not attempted due to medical condition or safety concerns P. Picking up object 88-Not attempted due to medical condition or safety concerns R. Wheel 50 feet with two turns 88-Not attempted due to medical condition or safety concerns S. Wheel 150 feet 88-Not attempted due to medical condition or safety concerns - Endurance Poor - Balance Poor - Safety Awareness Poor CURRENT [facility]. DEFICITS: Self-Care, Mobility, Endurance, Balance, and Safety Awareness SIGNATURE PANEL: (CDT)
[2020-06-20] MEDS: PRAMIPEXOLE 0.25 MG TAB PO SCH (21:43)
[2020-06-21] MEDS: ENOXAPARIN 30 MG/0.3 ML SQ SCH (06:42)
[2020-06-21] MEDS: NYSTATIN PWDR 100000 UNIT/GM TOP SCH ×2 (07:57→19:57)
[2020-06-21] MEDS: FLUTICASONE 50MCG NASAL SPRAY NAS SCH (07:57)
[2020-06-21] MEDS: LIDOCAINE 4% PATCH TOP SCH (07:57)
[2020-06-21] MEDS: FE SULF/FA/VIT B COMP & C TAB PO SCH (07:58)
[2020-06-21] MEDS: FERROUS SULFATE 325 MG TAB PO SCH (07:58)
[2020-06-21] MEDS: CRANBERRY FRUIT EXTRACT 200 MG CAP PO SCH ×2 (07:58→19:57)
[2020-06-21] MEDS: POTASSIUM CL SA 10 MEQ TAB PO SCH ×2 (07:58→19:58)
[2020-06-21] MEDS: TORSEMIDE 20 MG TAB PO SCH (07:59)
[2020-06-21] MEDS: LORATADINE 10 MG TAB PO SCH (07:59)
[2020-06-21] MEDS: FAMOTIDINE 20 MG TAB PO SCH (07:59)
[2020-06-21] MEDS: MAGNESIUM OXIDE 400 MG TAB PO SCH ×2 (07:59→19:58)
[2020-06-21] MEDS: CLOPIDOGREL 75 MG TABLET PO SCH (07:59)
[2020-06-21] MEDS: AMLODIPINE 5 MG TAB PO SCH (07:59)
[2020-06-21] MEDS: BUPROPRION HCL S R PO SCH (08:04)
[2020-06-21] MEDS: POLYETHYL GLY 3350 17 GM/DOSE PO SCH (08:04)
[2020-06-21] MEDS: BISACODYL 10 MG RECTAL SUPP PR PRN (16:09)
[2020-06-21] MEDS: MAGNESIUM HYDROXIDE 8% 30 ML PO PRN (16:09)
--- NOTE | 2020-06-21 18:23 | R.PN ---
PROGRESS NOTES ENCOUNTER DATE AND TIME: 06/21/2020 18:17 (CDT) NAME DEVAN LIMA DATE OF : 1935 DATE OF ADMISSION: 06/12/2020 14:44 (CDT) R Femoralfracture CHIEF COMPLAINT: Right femur fracture SUBJECTIVE: Pt denied any depression. Pt denied any Shortness of Breath. WBC is normal at 8.4, Hgb is 9.9, prealbumin 13.8, glucose 93 to 137, UA shows 3+ esterase, WBC 5-10. Multiple sit to stands done with moderate assistance. Self-propelled wheelchair 200' with contact gu uli assistance. Repeat KUB studies show retained large amounts of stool despite two fleet enemas. Will try soap suds enema. May require input from GI to rule out lower GI abnormalities. VITAL SIGNS Temperature: 98.2 F SBP/DBP: 150/76 Pulse: 66 Resp: 16 MEDICATION ALLERGIES: Penicillin ENVIRONMENTAL ALLERGIES: corn - Substance Allergies None Known - Other Allergies None Known NURSING: - Shower allowing shower - Skin care per protocol PRECAUTIONS: - Anterior Hip Precaution No abduction No active extension No adduction across midline No external rotation No hip flexion >90 degrees No internal rotation - Posterior Hip Precaution No adduction across midline No external rotation No hip flexion >90 degrees No internal rotation No wheel chair propulsion - Weight Bearing Precaution TTWB right LE ACTIVITIES OOB only with supervision THERAPIES: - Dietary and Nutrition Adequate Nutrition. Nutritional Education. Nutritional Supplements. PHYSICAL EXAM - Gen Alert and awake Lying in bed No apparent distress Oriented to: person, time, and place - Skin Right hip incision intact Normacephalic - Eyes No abnormalities - ENMT No abnormalities - Neck No abnormalities - CVS RRR - Resp Clear to auscultation - Abd + bowel sounds - GI Soft Deferred - No abnormalities - Ext Right hip surgical site has good hemostasis. - MSK 4+/5 weakness in right lower extremity - Neuro 4/5 strength right lower extremity - Psych No abnormalities ASSESSMENT: Pt. is a 85 yo Right-handed white female.She has past medical history significant for diabetes, HTN a nd CHF.On 06/10/2020 she was admitted to [facility] and underwent emergency surgery for R Fe moral FX (Closed Reduction, Percutaneous Pinning Right Hip) by Dr Jose.Pre-morbidly, Pt. was indepen dent/mod-I in Locomotion, Transfers Control, Self-Care, Social Cognition, Sphincter Control, and Comm unication; and she had good Balance and Safety Awareness.Currently, she has deficits of Transfers Con trol, Balance, Locomotion, Safety Awareness, Self-Care, Social Cognition, Sphincter Control, and Comm unication.Pt. is now referred to [facility] for acute in-patient rehabilitatio n in order to maximize patient's functional independence in activities of daily living, strength, ROM , and mobility.- Rehab Goal Patient has realistic goal of being discharged at assistance level 5-sup to reside at [facility] with Assistance. MDM/PLAN: - Physical Therapy Decreased range of motion - to improve, our physical therapists will perform initial evaluation of p t's status upon admission and devise an individualized program for increasing patient's Range of Gian on. Gait dysfunction - to improve, our physical therapists will perform initial evaluation of pt's statu s upon admission and devise an individualized program for Gait Training, and Wheel Chair mobility Inability to transfer - to improve, our physical therapists will perform initial evaluation of pt's status upon admission and devise an individualized program for Bed mobility Need for home safety evaluation - to improve, our physical therapists will perform initial evaluatio n of pt's status upon admission and devise an individualized program for Home Evaluation Need in caregiver upon discharge - to improve, our physical therapists will perform initial evaluati on of pt's status upon admission and devise an individualized program for Caregiver Training New precaution - to improve, our physical therapists will perform initial evaluation of pt's status upon admission and devise an individualized program for Patient precaution education Poor balance - to improve, our physical therapists will perform initial evaluation of pt's status up on admission and devise an individualized program for Balance Training Weakness - to improve, our physical therapists will perform initial evaluation of pt's status upon a dmission and devise an individualized program for Aquatic Therapy, Neuromuscular Reeducation, and Str engthening Achieving independence - to improve, our physical therapists will perform initial evaluation of pt's status upon admission and devise an individualized program for Community Reintegration Activities - Occupational Therapy ADL deficits - to improve, our occupation therapists will perform initial evaluation of pt's status upon admission and devise an individualized program for Bathing, Bed mobility, Community Reintegratio n, Cooking, Dressing, Eating, Fine Motor Skills, Grooming, Homemaking, Kitchen Mobility, Laundry, Pat ient Education, Safety Awareness, Splinting - Positioning, Transfers(Toilet, Tub, Shower), and Wheel Chair Management Cognitive deficits - to improve, our occupation therapists will perform initial evaluation of pt's s tatus upon admission and devise an individualized program for Cognition - orientation Need for healthcare administrative assistant - to improve, our occupation therapists will perform initial evaluation of pt's status upon admission and devise an individualized program for Caregiver Training Weakness - to improve, our occupation therapists will perform initial evaluation of pt's status upon admission and devise an individualized program for Aquatic Therapy, Balance, Endurance, UE ROM, and UE strengthening - N/A Continue see chart - Anterior Hip Precaution No abduction No active extension No adduction across midline No external rotation No hip flexion >90 degrees No internal rotation - Diet - Liquid Texture Continue Regular - Tube Feed Continue N/A - Diet Type Continue Regular - Posterior Hip Precaution No adduction across midline No external rotation No hip flexion >90 degrees No internal rotation No wheel chair propulsion - Weight Bearing Precaution TTWB right LE - Skin care per protocol - Other See attached MAR (Medication Administration Record) - Diet - Solid Texture Continue Regular - Shower allowing shower FUNCTIONAL STATUS: UPDATED AT WEEKLY TEAM CONFERENCE - Walking Same score based on distance walked: 0(N/A) - Wheelchair Same score based on distance traveled: 0(N/A) FUNCTIONAL STATUS: - Self-Care A. Eating Ind B. Grooming sup C. Bathing Ina D. Dressing - Upper sup E. Dressing - Lower Ina F. Toileting Ina - Sphincter Control G. Bladder control sup H. Bowel control sup - Transfers Control I. Bed/Chair/Wheelchair sup J. Toilet sup K. Tub/Shower Ina - Locomotion L. Walk/Wheelchair (B) Ina M. Stairs ADNO - Communication N. Comprehension (B) Ina O. Expression (B) Ina - Social Cognition P. Social Interaction Zhen Q. Problem Solving Zhen R. Memory Zhen - Endurance Fair - Balance Fair - Safety Awareness Fair QI SCORES: - Self-Care A. Eating 03-Partial/moderate assistance B. Oral hygiene 03-Partial/moderate assistance C. Toileting hygiene 01-Dependent E. Shower/bathe self 01-Dependent F. Upper body dressing 02-Substantial/maximal assistance G. Lower body dressing 88-Not attempted due to medical condition or safety concerns H. Putting on/taking off footwear 88-Not attempted due to medical condition or safety concerns - Mobility A. Roll left and right 01-Dependent B. Sit to lying 01-Dependent C. Lying to sitting on side of bed 01-Dependent D. Sit to stand 01-Dependent E. Chair/[id number] transfer 01-Dependent F. Toilet transfer 01-Dependent G. Car transfer 88-Not attempted due to medical condition or safety concerns I. Walk 10 feet 01-Dependent J. Walk 50 feet with two turns 88-Not attempted due to medical condition or safety concerns K. Walk 150 feet 88-Not attempted due to medical condition or safety concerns L. Walking 10 feet on uneven surfaces 88-Not attempted due to medical condition or safety concerns M. 1 step (curb) 88-Not attempted due to medical condition or safety concerns N. 4 steps 88-Not attempted due to medical condition or safety concerns O. 12 steps 88-Not attempted due to medical condition or safety concerns P. Picking up object 88-Not attempted due to medical condition or safety concerns R. Wheel 50 feet with two turns 88-Not attempted due to medical condition or safety concerns S. Wheel 150 feet 88-Not attempted due to medical condition or safety concerns - Endurance Poor - Balance Poor - Safety Awareness Poor CURRENT [facility]. DEFICITS: Self-Care, Mobility, Endurance, Balance, and Safety Awareness SIGNATURE PANEL: (CDT)
[2020-06-21] MEDS: PRAMIPEXOLE 0.25 MG TAB PO SCH (19:58)
[2020-06-21] MEDS: MELATONIN 3 MG TABLET PO PRN (19:58)
[2020-06-21] MEDS: DOCUSATE NA/SENNA CONC 1 TAB PO PRN (19:58)
[2020-06-22] MEDS: ENOXAPARIN 30 MG/0.3 ML SQ SCH (06:26)
[2020-06-22 06:41] LABS: Absolute Lymphocytes (CBC) 2.8 K/uL (0.7-4.9); Basophils % 0.6 % (0-1.3); Hematocrit 30.3 % (36.0-45.0); Lymphocytes % 31.5 % (15.3-44.8); MPV 7.3 fL (7.6-11.3); RBC Red Blood Cell Count 3.47 M/uL (3.86-4.86)
[2020-06-22 07:11] LABS: Albumin 2.9 g/dL (3.4-5.0); Magnesium 2.6 mg/dL (1.8-2.4); Potassium 3.8 mmol/L (3.5-5.1); Prealbumin 19.7 mg/dL (20-40)
[2020-06-22] MEDS: FE SULF/FA/VIT B COMP & C TAB PO SCH (08:00)
[2020-06-22] MEDS: CRANBERRY FRUIT EXTRACT 200 MG CAP PO SCH ×2 (09:09→20:15)
[2020-06-22] MEDS: FAMOTIDINE 20 MG TAB PO SCH (09:10)
[2020-06-22] MEDS: POLYETHYL GLY 3350 17 GM/DOSE PO SCH (09:10)
[2020-06-22] MEDS: POTASSIUM CL SA 10 MEQ TAB PO SCH ×2 (09:10→20:15)
[2020-06-22] MEDS: FERROUS SULFATE 325 MG TAB PO SCH (09:10)
[2020-06-22] MEDS: LIDOCAINE 4% PATCH TOP SCH (09:10)
[2020-06-22] MEDS: AMLODIPINE 5 MG TAB PO SCH (09:11)
[2020-06-22] MEDS: TORSEMIDE 20 MG TAB PO SCH (09:11)
[2020-06-22] MEDS: CLOPIDOGREL 75 MG TABLET PO SCH (09:11)
[2020-06-22] MEDS: MAGNESIUM OXIDE 400 MG TAB PO SCH ×2 (09:35→20:00)
[2020-06-22] MEDS: BUPROPRION HCL S R PO SCH (09:35)
[2020-06-22] MEDS: FLUTICASONE 50MCG NASAL SPRAY NAS SCH (09:36)
[2020-06-22] MEDS: NYSTATIN PWDR 100000 UNIT/GM TOP SCH ×2 (09:36→20:00)
[2020-06-22] MEDS: LORATADINE 10 MG TAB PO SCH (09:51)
--- NOTE | 2020-06-22 11:23 | RAD REPORT ---
EXAM DESCRIPTION: RAD - Abdomen 1 View (KUB) - 06/22/2020 10:47 am CLINICAL HISTORY: constipation Pain COMPARISON: Abdomen 1 View (KUB) dated 06/20/2020; Abdomen 1 View (KUB) dated 06/17/2020 FINDINGS: The bowel gas pattern is non-obstructive. No evidence of free air or pneumatosis. No suspi cious calcifications. There is a large amount of stool in the colon. Hardware with postoperative changes noted lumbar spine and right hip. IMPRESSION: Significant constipation.
[2020-06-22] MEDS ORDERED: MAGNESIUM CITRATE 300 ML BOT PO SCH (15:00)
--- NOTE | 2020-06-22 19:53 | R.PN ---
PROGRESS NOTES ENCOUNTER DATE AND TIME: 06/22/2020 19:47 (CDT) NAME DEVAN LIMA DATE OF : 1935 DATE OF ADMISSION: 06/12/2020 14:44 (CDT) R Femoralfracture CHIEF COMPLAINT: Right femur fracture SUBJECTIVE: Pt denied any depression. Pt denied any Shortness of Breath. WBC is normal at 8.8, Hgb is 10.0, prealbumin 19.7, Mg is high 2.6, glucose 93 to 137, UA shows 3+ e sterase, WBC 5-10. Repeat KUB studies show retained large amounts of stool despite 3 enemas. Will continue soap suds sara ma. May require input from GI to rule out lower GI abnormalities. Propelled a wheelchair 250' with independence. VITAL SIGNS Temperature: 97.1 F SBP/DBP: 153/75 Pulse: 67 Resp: 16 MEDICATION ALLERGIES: Penicillin ENVIRONMENTAL ALLERGIES: corn - Substance Allergies None Known - Other Allergies None Known NURSING: - Shower allowing shower - Skin care per protocol PRECAUTIONS: - Anterior Hip Precaution No abduction No active extension No adduction across midline No external rotation No hip flexion >90 degrees No internal rotation - Posterior Hip Precaution No adduction across midline No external rotation No hip flexion >90 degrees No internal rotation No wheel chair propulsion - Weight Bearing Precaution TTWB right LE ACTIVITIES OOB only with supervision THERAPIES: - Dietary and Nutrition Adequate Nutrition. Nutritional Education. Nutritional Supplements. PHYSICAL EXAM - Gen Alert and awake Lying in bed No apparent distress Oriented to: person, time, and place - Skin Right hip incision intact Normacephalic - Eyes No abnormalities - ENMT No abnormalities - Neck No abnormalities - CVS RRR - Resp Clear to auscultation - Abd + bowel sounds - GI Soft Deferred - No abnormalities - Ext Right hip surgical site has good hemostasis. - MSK 4+/5 weakness in right lower extremity - Neuro 4/5 strength right lower extremity - Psych No abnormalities ASSESSMENT: Pt. is a 85 yo Right-handed white female.She has past medical history significant for diabetes, HTN a nd CHF.On 06/10/2020 she was admitted to [facility] and underwent emergency surgery for R Fe moral FX (Closed Reduction, Percutaneous Pinning Right Hip) by Dr Jose.Pre-morbidly, Pt. was indepen dent/mod-I in Locomotion, Transfers Control, Self-Care, Social Cognition, Sphincter Control, and Comm unication; and she had good Balance and Safety Awareness.Currently, she has deficits of Transfers Con trol, Balance, Locomotion, Safety Awareness, Self-Care, Social Cognition, Sphincter Control, and Comm unication.Pt. is now referred to [facility] for acute in-patient rehabilitatio n in order to maximize patient's functional independence in activities of daily living, strength, ROM , and mobility.- Rehab Goal Patient has realistic goal of being discharged at assistance level 5-sup to reside at [facility] with Assistance. MDM/PLAN: - Physical Therapy Decreased range of motion - to improve, our physical therapists will perform initial evaluation of p t's status upon admission and devise an individualized program for increasing patient's Range of Gian on. Gait dysfunction - to improve, our physical therapists will perform initial evaluation of pt's statu s upon admission and devise an individualized program for Gait Training, and Wheel Chair mobility Inability to transfer - to improve, our physical therapists will perform initial evaluation of pt's status upon admission and devise an individualized program for Bed mobility Need for home safety evaluation - to improve, our physical therapists will perform initial evaluatio n of pt's status upon admission and devise an individualized program for Home Evaluation Need in caregiver upon discharge - to improve, our physical therapists will perform initial evaluati on of pt's status upon admission and devise an individualized program for Caregiver Training New precaution - to improve, our physical therapists will perform initial evaluation of pt's status upon admission and devise an individualized program for Patient precaution education Poor balance - to improve, our physical therapists will perform initial evaluation of pt's status up on admission and devise an individualized program for Balance Training Weakness - to improve, our physical therapists will perform initial evaluation of pt's status upon a dmission and devise an individualized program for Aquatic Therapy, Neuromuscular Reeducation, and Str engthening Achieving independence - to improve, our physical therapists will perform initial evaluation of pt's status upon admission and devise an individualized program for Community Reintegration Activities - Occupational Therapy ADL deficits - to improve, our occupation therapists will perform initial evaluation of pt's status upon admission and devise an individualized program for Bathing, Bed mobility, Community Reintegratio n, Cooking, Dressing, Eating, Fine Motor Skills, Grooming, Homemaking, Kitchen Mobility, Laundry, Pat ient Education, Safety Awareness, Splinting - Positioning, Transfers(Toilet, Tub, Shower), and Wheel Chair Management Cognitive deficits - to improve, our occupation therapists will perform initial evaluation of pt's s tatus upon admission and devise an individualized program for Cognition - orientation Need for multi care technician - to improve, our occupation therapists will perform initial evaluation of pt's status upon admission and devise an individualized program for Caregiver Training Weakness - to improve, our occupation therapists will perform initial evaluation of pt's status upon admission and devise an individualized program for Aquatic Therapy, Balance, Endurance, UE ROM, and UE strengthening - N/A Continue see chart - Anterior Hip Precaution No abduction No active extension No adduction across midline No external rotation No hip flexion >90 degrees No internal rotation - Diet - Liquid Texture Continue Regular - Tube Feed Continue N/A - Diet Type Continue Regular - Posterior Hip Precaution No adduction across midline No external rotation No hip flexion >90 degrees No internal rotation No wheel chair propulsion - Weight Bearing Precaution TTWB right LE - Skin care per protocol - Other See attached MAR (Medication Administration Record) - Diet - Solid Texture Continue Regular - Shower allowing shower FUNCTIONAL STATUS: UPDATED AT WEEKLY TEAM CONFERENCE - Walking Same score based on distance walked: 0(N/A) - Wheelchair Same score based on distance traveled: 0(N/A) FUNCTIONAL STATUS: - Self-Care A. Eating Ind B. Grooming sup C. Bathing Ina D. Dressing - Upper sup E. Dressing - Lower Ina F. Toileting Ina - Sphincter Control G. Bladder control sup H. Bowel control sup - Transfers Control I. Bed/Chair/Wheelchair sup J. Toilet sup K. Tub/Shower Ina - Locomotion L. Walk/Wheelchair (B) Ina M. Stairs ADNO - Communication N. Comprehension (B) Ina O. Expression (B) Ina - Social Cognition P. Social Interaction Zhen Q. Problem Solving Zhen R. Memory Zhen - Endurance Fair - Balance Fair - Safety Awareness Fair QI SCORES: - Self-Care A. Eating 03-Partial/moderate assistance B. Oral hygiene 03-Partial/moderate assistance C. Toileting hygiene 01-Dependent E. Shower/bathe self 01-Dependent F. Upper body dressing 02-Substantial/maximal assistance G. Lower body dressing 88-Not attempted due to medical condition or safety concerns H. Putting on/taking off footwear 88-Not attempted due to medical condition or safety concerns - Mobility A. Roll left and right 01-Dependent B. Sit to lying 01-Dependent C. Lying to sitting on side of bed 01-Dependent D. Sit to stand 01-Dependent E. Chair/rna-wh-irvni transfer 01-Dependent F. Toilet transfer 01-Dependent G. Car transfer 88-Not attempted due to medical condition or safety concerns I. Walk 10 feet 01-Dependent J. Walk 50 feet with two turns 88-Not attempted due to medical condition or safety concerns K. Walk 150 feet 88-Not attempted due to medical condition or safety concerns L. Walking 10 feet on uneven surfaces 88-Not attempted due to medical condition or safety concerns M. 1 step (curb) 88-Not attempted due to medical condition or safety concerns N. 4 steps 88-Not attempted due to medical condition or safety concerns O. 12 steps 88-Not attempted due to medical condition or safety concerns P. Picking up object 88-Not attempted due to medical condition or safety concerns R. Wheel 50 feet with two turns 88-Not attempted due to medical condition or safety concerns S. Wheel 150 feet 88-Not attempted due to medical condition or safety concerns - Endurance Poor - Balance Poor - Safety Awareness Poor CURRENT [facility]. DEFICITS: Self-Care, Mobility, Endurance, Balance, and Safety Awareness SIGNATURE PANEL: (CDT)
[2020-06-22] MEDS: PRAMIPEXOLE 0.25 MG TAB PO SCH (20:15)
[2020-06-22] MEDS: MELATONIN 3 MG TABLET PO PRN (20:15)
[2020-06-22] MEDS: DOCUSATE NA 100 MG CAP PO SCH (20:16)
[2020-06-22] MEDS: DOCUSATE NA/SENNA CONC 1 TAB PO PRN (20:16)
[2020-06-22] MEDS: ONDANSETRON 4 MG (ODT) TAB PO PRN (23:22)
[2020-06-23] MEDS: LIDOCAINE 4% PATCH TOP SCH (06:27)
[2020-06-23] MEDS: NYSTATIN PWDR 100000 UNIT/GM TOP SCH ×2 (06:28→20:52)
[2020-06-23] MEDS: FLUTICASONE 50MCG NASAL SPRAY NAS SCH (06:29)
[2020-06-23] MEDS: ENOXAPARIN 30 MG/0.3 ML SQ SCH (06:29)
[2020-06-23] MEDS: POLYETHYL GLY 3350 17 GM/DOSE PO SCH (07:36)
[2020-06-23] MEDS: FAMOTIDINE 20 MG TAB PO SCH (07:37)
[2020-06-23] MEDS: CLOPIDOGREL 75 MG TABLET PO SCH (07:37)
[2020-06-23] MEDS: TORSEMIDE 20 MG TAB PO SCH (07:37)
[2020-06-23] MEDS: FERROUS SULFATE 325 MG TAB PO SCH (07:37)
[2020-06-23] MEDS: POTASSIUM CL SA 10 MEQ TAB PO SCH ×2 (07:38→20:52)
[2020-06-23] MEDS: LORATADINE 10 MG TAB PO SCH (07:38)
[2020-06-23] MEDS: MAGNESIUM OXIDE 400 MG TAB PO SCH ×2 (07:38→20:52)
[2020-06-23] MEDS: BUPROPRION HCL S R PO SCH (07:38)
[2020-06-23] MEDS: AMLODIPINE 5 MG TAB PO SCH (07:39)
[2020-06-23] MEDS: DOCUSATE NA 100 MG CAP PO SCH ×2 (07:39→20:52)
[2020-06-23] MEDS: CRANBERRY FRUIT EXTRACT 200 MG CAP PO SCH ×2 (07:39→20:52)
[2020-06-23] MEDS: FE SULF/FA/VIT B COMP & C TAB PO SCH (07:39)
--- NOTE | 2020-06-23 09:46 | P.RH.PN ---
Estimated Length of Stay: 14 Expected Discharge Date: 06/28/20 Discharge Disposition Plan: Home Family Support: Yes Detention Goal: Mobility, Transfers, Self Care Vital Signs: Last Vital Signs Temp 97.1 F 06/23/20 09:07 Pulse 71 06/23/20 09:07 Resp 16 06/23/20 09:07 BP 135/73 06/23/20 09:07 Pulse Ox 96 06/22/20 20:00 Laboratory: Laboratory Last Values WBC 8.80 K/uL (4.3-10.9) 06/22/20 06:08 RBC 3.47 M/uL (3.86-4.86) L 06/22/20 06:08 Hgb 10.0 g/dL (12.0-15.0) L 06/22/20 06:08 Hct 30.3 % (36.0-45.0) L 06/22/20 06:08 MCV 87.3 fL (80-100) 06/22/20 06:08 MCH 28.8 pg (27.0-35.0) 06/22/20 06:08 MCHC 32.9 g/dL (32.0-36.0) 06/22/20 06:08 RDW 15.5 % (12.1-15.2) H 06/22/20 06:08 Plt Count 449 K/uL (152-406) H 06/22/20 06:08 MPV 7.3 fL (7.6-11.3) L 06/22/20 06:08 Neutrophils % 56.3 % (41.7-73.7) 06/22/20 06:08 Lymphocytes % 31.5 % (15.3-44.8) 06/22/20 06:08 Monocytes % 9.1 % (3.3-12.3) 06/22/20 06:08 Eosinophils % 2.5 % (0-4.4) 06/22/20 06:08 Basophils % 0.6 % (0-1.3) 06/22/20 06:08 Absolute Neutrophils 4.9 K/uL (1.8-8.0) 06/22/20 06:08 Absolute Lymphocytes 2.8 K/uL (0.7-4.9) 06/22/20 06:08 Absolute Monocytes 0.8 K/uL (0.1-1.3) 06/22/20 06:08 Absolute Eosinophils 0.2 K/uL (0-0.5) 06/22/20 06:08 Absolute Basophils 0.1 K/uL (0-0.5) 06/22/20 06:08 Sodium 143 mmol/L (136-145) 06/22/20 06:08 Potassium 3.8 mmol/L (3.5-5.1) 06/22/20 06:08 Chloride 109 mmol/L (98-107) H 06/22/20 06:08 Carbon Dioxide 28 mmol/L (21-32) 06/22/20 06:08 BUN 19 mg/dL (7-18) H 06/22/20 06:08 Creatinine 1.46 mg/dL (0.55-1.3) H 06/22/20 06:08 Estimated GFR 34 mL/min (=/>90) L 06/22/20 06:08 Glucose 101 mg/dL (74-106) 06/22/20 06:08 POC Glucose 93 mg/dL (65-120) 06/23/20 06:52 Calcium 9.6 mg/dL (8.5-10.1) 06/22/20 06:08 Magnesium 2.6 mg/dL (1.8-2.4) H D 06/22/20 06:08 Total Bilirubin 0.3 mg/dL (0.2-1.0) 06/20/20 16:24 Direct Bilirubin < 0.1 mg/dL (0-0.2) 06/20/20 16:24 AST 14 U/L (15-37) L 06/20/20 16:24 ALT 16 U/L (12-78) 06/20/20 16:24 Alkaline Phosphatase 102 U/L (45-117) 06/20/20 16:24 Serum Total Protein 7.8 g/dL (6.4-8.2) 06/20/20 16:24 Albumin 2.9 g/dL (3.4-5.0) L 06/22/20 06:08 Globulin 4.6 g/dL (2.3-3.5) H 06/20/20 16:24 Albumin/Globulin Ratio 0.7 (1.1-1.8) L 06/20/20 16:24 Prealbumin 19.7 mg/dL (20-40) L 06/22/20 06:08 Urine Color Yellow (Yellow) 06/12/20 21:04 Urine Appearance Cloudy (Clear) 06/12/20 21:04 Urine pH 6.0 (5.0-7.0) 06/12/20 21:04 Ur Specific Winner 1.020 (1.005-1.030) 06/12/20 21:04 Glucose (UA)(Auto) Negative (Negative) 06/12/20 21:04 Urine Ketones Negative (Negative) 06/12/20 21:04 Urine Blood Negative (Negative) 06/12/20 21:04 Urine Nitrite Negative (Negative) 06/12/20 21:04 Urine Bilirubin Negative (Negataive) 06/12/20 21:04 Urine Urobilinogen 0.2 mg/dL (0.2-1.0) 06/12/20 21:04 Ur Leukocyte Esterase 3+ (Negative) H 06/12/20 21:04 Urine RBC <5 /HPF (NONE SEEN) 06/12/20 21:04 Urine WBC 5-10 /HPF (<5) H 06/12/20 21:04 Ur Squamous Epith Cells 10-20 /HPF (NONE SEEN) H 06/12/20 21:04 Urine Bacteria <20 /HPF (<20) 06/12/20 21:04 Urine Mucus 1+ /HPF (NONE SEEN) 06/12/20 21:04 Urine Culture Reflexed Not needed 06/12/20 21:04 Urine Total Protein Trace (Negative) H 06/12/20 21:04 Weight: 149 lb 8 oz Wound Present: No Closed Surgical Incision Present: Yes Negative Pressure Wound Therapy Present: No Physician Update: She still has a large amount of stool in the colon with a constipation pattern after 2 Fleets and 2 Soap suds enemas. GI is not available. She is making fair overall progress with all therapy. She will require continued help after discharge due to cognition. She is slow with wheelchair but moved 250' with standby assistance. She is at max assistance with transfers due to nonweight bearing status on right leg. Functional Improvement: Patient has improved w/ WC propulsion and seated ther ex., however continues to present w/ difficulty w/ transfers, due to cognition issues. Summary: Patient's care plan and jail goals have been reviewed and revised as necessary. Please see the Rehabilitation Signature page for all necessary signatures.
[2020-06-23] MEDS ORDERED: MAGNESIUM CITRATE 300 ML BOT PO SCH (13:00)
[2020-06-23] MEDS: LACTULOSE 20 GM/30 ML UCUP PO PRN (13:54)
[2020-06-23] MEDS: PRAMIPEXOLE 0.25 MG TAB PO SCH (20:53)
[2020-06-23] MEDS: MELATONIN 3 MG TABLET PO PRN (20:53)
[2020-06-23] MEDS: DOCUSATE NA/SENNA CONC 1 TAB PO PRN (20:53)
[2020-06-23] MEDS: ACETAMINOPHEN 500 MG TAB PO PRN (23:57)
--- NOTE | 2020-06-24 04:43 | R.PN ---
PROGRESS NOTES ENCOUNTER DATE AND TIME: 06/15/2020 19:58 (CDT) NAME DEVAN LIMA DATE OF : 1935 DATE OF ADMISSION: 06/12/2020 14:44 (CDT) R Femoralfracture CHIEF COMPLAINT: Right femur fracture SUBJECTIVE: Pt denied any depression. Pt denied any Shortness of Breath. WBC is normal at 8.4, Hgb is 9.4, prealbumin 13.8, glucose 90 to 123, UA shows 3+ esterase, WBC 5-10. Propelled wheelchair 160' with contact guard assistance. VITAL SIGNS Temperature: 97.8 F SBP/DBP: 134/81 Pulse: 74 Resp: 16 MEDICATION ALLERGIES: Penicillin ENVIRONMENTAL ALLERGIES: corn - Substance Allergies None Known - Other Allergies None Known NURSING: - Shower allowing shower - Skin care per protocol PRECAUTIONS: - Anterior Hip Precaution No abduction No active extension No adduction across midline No external rotation No hip flexion >90 degrees No internal rotation - Posterior Hip Precaution No adduction across midline No external rotation No hip flexion >90 degrees No internal rotation No wheel chair propulsion - Weight Bearing Precaution TTWB right LE ACTIVITIES OOB only with supervision THERAPIES: - Dietary and Nutrition Adequate Nutrition. Nutritional Education. Nutritional Supplements. PHYSICAL EXAM - Gen Alert and awake Lying in bed No apparent distress Oriented to: person, time, and place - Skin Right hip incision intact Normacephalic - Eyes No abnormalities - ENMT No abnormalities - Neck No abnormalities - CVS RRR - Resp Clear to auscultation - Abd + bowel sounds - GI Soft Deferred - No abnormalities - Ext Right hip surgical site has good hemostasis. - MSK 4+/5 weakness in right lower extremity - Neuro 4/5 strength right lower extremity - Psych No abnormalities ASSESSMENT: Pt. is a 85 yo Right-handed white female.She has past medical history significant for diabetes, HTN a nd CHF.On 06/10/2020 she was admitted to [facility] and underwent emergency surgery for R Fe moral FX (Closed Reduction, Percutaneous Pinning Right Hip) by Dr Jose.Pre-morbidly, Pt. was indepen dent/mod-I in Locomotion, Transfers Control, Self-Care, Social Cognition, Sphincter Control, and Comm unication; and she had good Balance and Safety Awareness.Currently, she has deficits of Transfers Con trol, Balance, Locomotion, Safety Awareness, Self-Care, Social Cognition, Sphincter Control, and Comm unication.Pt. is now referred to [facility] for acute in-patient rehabilitatio n in order to maximize patient's functional independence in activities of daily living, strength, ROM , and mobility.- Rehab Goal Patient has realistic goal of being discharged at assistance level 5-sup to reside at [facility] with Assistance. MDM/PLAN: - Physical Therapy Decreased range of motion - to improve, our physical therapists will perform initial evaluation of p t's status upon admission and devise an individualized program for increasing patient's Range of Gian on. Gait dysfunction - to improve, our physical therapists will perform initial evaluation of pt's statu s upon admission and devise an individualized program for Gait Training, and Wheel Chair mobility Inability to transfer - to improve, our physical therapists will perform initial evaluation of pt's status upon admission and devise an individualized program for Bed mobility Need for home safety evaluation - to improve, our physical therapists will perform initial evaluatio n of pt's status upon admission and devise an individualized program for Home Evaluation Need in caregiver upon discharge - to improve, our physical therapists will perform initial evaluati on of pt's status upon admission and devise an individualized program for Caregiver Training New precaution - to improve, our physical therapists will perform initial evaluation of pt's status upon admission and devise an individualized program for Patient precaution education Poor balance - to improve, our physical therapists will perform initial evaluation of pt's status up on admission and devise an individualized program for Balance Training Weakness - to improve, our physical therapists will perform initial evaluation of pt's status upon a dmission and devise an individualized program for Aquatic Therapy, Neuromuscular Reeducation, and Str engthening Achieving independence - to improve, our physical therapists will perform initial evaluation of pt's status upon admission and devise an individualized program for Community Reintegration Activities - Occupational Therapy ADL deficits - to improve, our occupation therapists will perform initial evaluation of pt's status upon admission and devise an individualized program for Bathing, Bed mobility, Community Reintegratio n, Cooking, Dressing, Eating, Fine Motor Skills, Grooming, Homemaking, Kitchen Mobility, Laundry, Pat ient Education, Safety Awareness, Splinting - Positioning, Transfers(Toilet, Tub, Shower), and Wheel Chair Management Cognitive deficits - to improve, our occupation therapists will perform initial evaluation of pt's s tatus upon admission and devise an individualized program for Cognition - orientation Need for body care manager - to improve, our occupation therapists will perform initial evaluation of pt's status upon admission and devise an individualized program for Caregiver Training Weakness - to improve, our occupation therapists will perform initial evaluation of pt's status upon admission and devise an individualized program for Aquatic Therapy, Balance, Endurance, UE ROM, and UE strengthening - N/A Continue see chart - Anterior Hip Precaution No abduction No active extension No adduction across midline No external rotation No hip flexion >90 degrees No internal rotation - Diet - Liquid Texture Continue Regular - Tube Feed Continue N/A - Diet Type Continue Regular - Posterior Hip Precaution No adduction across midline No external rotation No hip flexion >90 degrees No internal rotation No wheel chair propulsion - Weight Bearing Precaution TTWB right LE - Skin care per protocol - Other See attached MAR (Medication Administration Record) - Diet - Solid Texture Continue Regular - Shower allowing shower FUNCTIONAL STATUS: UPDATED AT WEEKLY TEAM CONFERENCE - Walking Same score based on distance walked: 0(N/A) - Wheelchair Same score based on distance traveled: 0(N/A) FUNCTIONAL STATUS: - Self-Care A. Eating Ind B. Grooming sup C. Bathing Ina D. Dressing - Upper sup E. Dressing - Lower Ina F. Toileting Ina - Sphincter Control G. Bladder control sup H. Bowel control sup - Transfers Control I. Bed/Chair/Wheelchair sup J. Toilet sup K. Tub/Shower Ina - Locomotion L. Walk/Wheelchair (B) Ina M. Stairs ADNO - Communication N. Comprehension (B) Ina O. Expression (B) Ina - Social Cognition P. Social Interaction Zhen Q. Problem Solving Zhen R. Memory Zhen - Endurance Fair - Balance Fair - Safety Awareness Fair QI SCORES: - Self-Care A. Eating 03-Partial/moderate assistance B. Oral hygiene 03-Partial/moderate assistance C. Toileting hygiene 01-Dependent E. Shower/bathe self 01-Dependent F. Upper body dressing 02-Substantial/maximal assistance G. Lower body dressing 88-Not attempted due to medical condition or safety concerns H. Putting on/taking off footwear 88-Not attempted due to medical condition or safety concerns - Mobility A. Roll left and right 01-Dependent B. Sit to lying 01-Dependent C. Lying to sitting on side of bed 01-Dependent D. Sit to stand 01-Dependent E. Chair/[id number] transfer 01-Dependent F. Toilet transfer 01-Dependent G. Car transfer 88-Not attempted due to medical condition or safety concerns I. Walk 10 feet 01-Dependent J. Walk 50 feet with two turns 88-Not attempted due to medical condition or safety concerns K. Walk 150 feet 88-Not attempted due to medical condition or safety concerns L. Walking 10 feet on uneven surfaces 88-Not attempted due to medical condition or safety concerns M. 1 step (curb) 88-Not attempted due to medical condition or safety concerns N. 4 steps 88-Not attempted due to medical condition or safety concerns O. 12 steps 88-Not attempted due to medical condition or safety concerns P. Picking up object 88-Not attempted due to medical condition or safety concerns R. Wheel 50 feet with two turns 88-Not attempted due to medical condition or safety concerns S. Wheel 150 feet 88-Not attempted due to medical condition or safety concerns - Endurance Poor - Balance Poor - Safety Awareness Poor [facility] DEFICITS: Self-Care, Mobility, Endurance, Balance, and Safety Awareness SIGNATURE PANEL: (CDT)
[2020-06-24] MEDS: ENOXAPARIN 30 MG/0.3 ML SQ SCH (06:35)
[2020-06-24] MEDS: LIDOCAINE 4% PATCH TOP SCH (06:36)
[2020-06-24] MEDS: POTASSIUM CL SA 10 MEQ TAB PO SCH (08:00)
[2020-06-24] MEDS: FAMOTIDINE 20 MG TAB PO SCH (09:14)
[2020-06-24] MEDS: CRANBERRY FRUIT EXTRACT 200 MG CAP PO SCH ×2 (09:14→19:50)
[2020-06-24] MEDS: DOCUSATE NA 100 MG CAP PO SCH ×2 (09:14→19:49)
[2020-06-24] MEDS: TORSEMIDE 20 MG TAB PO SCH (09:15)
[2020-06-24] MEDS: AMLODIPINE 5 MG TAB PO SCH (09:15)
[2020-06-24] MEDS: CLOPIDOGREL 75 MG TABLET PO SCH (09:16)
[2020-06-24] MEDS: NYSTATIN PWDR 100000 UNIT/GM TOP SCH ×2 (10:46→19:50)
[2020-06-24] MEDS: FLUTICASONE 50MCG NASAL SPRAY NAS SCH (10:46)
[2020-06-24] MEDS: FERROUS SULFATE 325 MG TAB PO SCH (10:47)
[2020-06-24] MEDS: BUPROPRION HCL S R PO SCH (10:47)
[2020-06-24] MEDS: FE SULF/FA/VIT B COMP & C TAB PO SCH (10:47)
[2020-06-24] MEDS: POLYETHYL GLY 3350 17 GM/DOSE PO SCH (10:47)
[2020-06-24] MEDS: LORATADINE 10 MG TAB PO SCH (10:49)
[2020-06-24] MEDS: MAGNESIUM OXIDE 400 MG TAB PO SCH ×2 (10:50→19:49)
[2020-06-24] MEDS: PRAMIPEXOLE 0.25 MG TAB PO SCH (19:50)
[2020-06-24] MEDS ORDERED: POTASSIUM CL SA 10 MEQ TAB PO SCH (20:00)
[2020-06-25] MEDS: ACETAMINOPHEN 500 MG TAB PO PRN (02:52)
[2020-06-25] MEDS: ENOXAPARIN 30 MG/0.3 ML SQ SCH (06:56)
[2020-06-25 07:19] LABS: Potassium 4.3 mmol/L (3.5-5.1)
[2020-06-25] MEDS: NYSTATIN PWDR 100000 UNIT/GM TOP SCH ×2 (08:00→20:00)
[2020-06-25] MEDS: CRANBERRY FRUIT EXTRACT 200 MG CAP PO SCH ×2 (08:00→20:19)
[2020-06-25] MEDS: POTASSIUM CL SA 10 MEQ TAB PO SCH ×2 (09:12→20:19)
[2020-06-25] MEDS: LIDOCAINE 4% PATCH TOP SCH (09:13)
[2020-06-25] MEDS: FAMOTIDINE 20 MG TAB PO SCH (09:13)
[2020-06-25] MEDS: TORSEMIDE 20 MG TAB PO SCH (09:13)
[2020-06-25] MEDS: DOCUSATE NA 100 MG CAP PO SCH ×2 (09:14→20:19)
[2020-06-25] MEDS: LORATADINE 10 MG TAB PO SCH (09:14)
[2020-06-25] MEDS: FERROUS SULFATE 325 MG TAB PO SCH (09:14)
[2020-06-25] MEDS: CLOPIDOGREL 75 MG TABLET PO SCH (09:14)
[2020-06-25] MEDS: AMLODIPINE 5 MG TAB PO SCH (09:14)
[2020-06-25] MEDS: POLYETHYL GLY 3350 17 GM/DOSE PO SCH (09:15)
[2020-06-25] MEDS: MAGNESIUM OXIDE 400 MG TAB PO SCH ×2 (09:15→20:19)
[2020-06-25] MEDS: FE SULF/FA/VIT B COMP & C TAB PO SCH (09:16)
[2020-06-25] MEDS: FLUTICASONE 50MCG NASAL SPRAY NAS SCH (09:56)
[2020-06-25] MEDS: BUPROPRION HCL S R PO SCH (09:56)
--- NOTE | 2020-06-25 15:52 | FAST ---
[employer] FORM SHIFT START DATE/TIME: 06/25/2020 07:00 (CDT) SHIFT END DATE/TIME: 06/25/2020 19:00 (CDT) NAME DEVAN LIMA DATE OF : 1935 DATE OF ADMISSION: 06/12/2020 14:44 (CDT) PHONE: AGE: 85 N# [id number] GENDER: Female ENCOUNTER PHYSICIAN: Dr. Erlin Cortez M.D. ADMISSION DIAGNOSIS: - Orthopaedic Disorders 08 - Unilateral Hip Fracture (08.11) R Femoralfracture . EATING: EATING - STEP 1: Does the patient complete the activity by him/herself with no assistance (physical, verbal/nonverbal cueing, setup/clean-up)? No. EATING - STEP 2: Does the patient need only setup/clean-up assistance from one helper? Yes. 1. [id number] ADMISSION PERFORMANCE: Setup or clean-up assistance CODE: 05 ORAL HYGIENE: Not attempted due to medical condition or safety concerns CODE: 88 TOILETING HYGIENE: TOILETING HYGIENE - STEP 1: Does the patient complete the activity by him/herself with no assistance (physical, verbal/nonverbal cueing, setup/clean-up)? No. TOILETING HYGIENE - STEP 2: Does the patient need only setup/clean-up assistance from one helper? No. TOILETING HYGIENE - STEP 3: Does the patient need only verbal/nonverbal cueing or touching/steadying/contact guard assistance fro m one helper? No. TOILETING HYGIENE - STEP 4: Does the patient need physical assistance - for example lifting or trunk support from one helper - wi th the helper providing less than half of the effort? No. TOILETING HYGIENE - STEP 5: Does the patient need physical assistance - for example lifting or trunk support from one helper - wi th the helper providing more than half of the effort? Yes. 1. [id number] ADMISSION PERFORMANCE: Substantial/maximal assistance CODE: 02 BATHING: Not assessed/no information CODE: - DRESSING - UPPER BODY: DRESSING - UPPER BODY - STEP 1: Does the patient complete the activity by him/herself with no assistance (physical, verbal/nonverbal cueing, setup/clean-up)? No. DRESSING - UPPER BODY - STEP 2: Does the patient need only setup/clean-up assistance from one helper? No. DRESSING - UPPER BODY - STEP 3: Does the patient need only verbal/nonverbal cueing or touching/steadying/contact guard assistance fro m one helper? Yes. 1. [id number] ADMISSION PERFORMANCE: Supervision or touching assistance CODE: 04 DRESSING - LOWER BODY: Not attempted due to medical condition or safety concerns CODE: 88 PUTTING ON/TAKING OFF FOOTWEAR: FOOTWEAR - STEP 1: Does the patient complete the activity by him/herself with no assistance (physical, verbal/nonverbal cueing, setup/clean-up)? No. FOOTWEAR - STEP 2: Does the patient need only setup/clean-up assistance from one helper? No. FOOTWEAR - STEP 3: Does the patient need only verbal/nonverbal cueing or touching/steadying/contact guard assistance fro m one helper? No. FOOTWEAR - STEP 4: Does the patient need physical assistance - for example lifting or trunk support from one helper - wi th the helper providing less than half of the effort? No. FOOTWEAR - STEP 5: Does the patient need physical assistance - for example lifting or trunk support from one helper - wi th the helper providing more than half of the effort? No. FOOTWEAR - STEP 6: Does the helper provide all of the effort? OR Is the assistance of two or more helpers required to co mplete the activity? Yes. 1. [id number] ADMISSION PERFORMANCE: Dependent CODE: 01 ROLL LEFT AND RIGHT: ROLL LEFT AND RIGHT - STEP 1: Does the patient complete the activity by him/herself with no assistance (physical, verbal/nonverbal cueing, setup/clean-up)? No. ROLL LEFT AND RIGHT - STEP 2: Does the patient need only setup/clean-up assistance from one helper? No. ROLL LEFT AND RIGHT - STEP 3: Does the patient need only verbal/nonverbal cueing or touching/steadying/contact guard assistance fro m one helper? No. ROLL LEFT AND RIGHT - STEP 4: Does the patient need physical assistance - for example lifting or trunk support from one helper - wi th the helper providing less than half of the effort? No. ROLL LEFT AND RIGHT - STEP 5: Does the patient need physical assistance - for example lifting or trunk support from one helper - wi th the helper providing more than half of the effort? Yes. 1. [id number] ADMISSION PERFORMANCE: Substantial/maximal assistance CODE: 02 SIT TO LYING: SIT TO LYING - STEP 1: Does the patient complete the activity by him/herself with no assistance (physical, verbal/nonverbal cueing, setup/clean-up)? No. SIT TO LYING - STEP 2: Does the patient need only setup/clean-up assistance from one helper? No. SIT TO LYING - STEP 3: Does the patient need only verbal/nonverbal cueing or touching/steadying/contact guard assistance fro m one helper? Yes. 1. [id number] ADMISSION PERFORMANCE: Supervision or touching assistance CODE: 04 LYING TO SITTING: LYING TO SITTING ON SIDE OF BED - STEP 1: Does the patient complete the activity by him/herself with no assistance (physical, verbal/nonverbal cueing, setup/clean-up)? No. LYING TO SITTING ON SIDE OF BED - STEP 2: Does the patient need only setup/clean-up assistance from one helper? No. LYING TO SITTING ON SIDE OF BED - STEP 3: Does the patient need only verbal/nonverbal cueing or touching/steadying/contact guard assistance fro m one helper? No. LYING TO SITTING ON SIDE OF BED - STEP 4: Does the patient need physical assistance - for example lifting or trunk support from one helper - wi th the helper providing less than half of the effort? Yes. 1. [id number] ADMISSION PERFORMANCE: Partial/moderate assistance CODE: 03 SIT TO STAND: SIT TO STAND - STEP 1: Does the patient complete the activity by him/herself with no assistance (physical, verbal/nonverbal cueing, setup/clean-up)? No. SIT TO STAND - STEP 2: Does the patient need only setup/clean-up assistance from one helper? No. SIT TO STAND - STEP 3: Does the patient need only verbal/nonverbal cueing or touching/steadying/contact guard assistance fro m one helper? No. SIT TO STAND - STEP 4: Does the patient need physical assistance - for example lifting or trunk support from one helper - wi th the helper providing less than half of the effort? Yes. 1. [id number] ADMISSION PERFORMANCE: Partial/moderate assistance CODE: 03 TRANSFERS: BED, CHAIR: CHAIR/[id number] TRANSFER - STEP 1: Does the patient complete the activity by him/herself with no assistance (physical, verbal/nonverbal cueing, setup/clean-up)? No. CHAIR/[id number] TRANSFER - STEP 2: Does the patient need only setup/clean-up assistance from one helper? No. CHAIR/[id number] TRANSFER - STEP 3: Does the patient need only verbal/nonverbal cueing or touching/steadying/contact guard assistance fro m one helper? No. CHAIR/[id number] TRANSFER - STEP 4: Does the patient need physical assistance - for example lifting or trunk support from one helper - wi th the helper providing less than half of the effort? No. CHAIR/[id number] TRANSFER - STEP 5: Does the patient need physical assistance - for example lifting or trunk support from one helper - wi th the helper providing more than half of the effort? Yes. 1. [id number] ADMISSION PERFORMANCE: Substantial/maximal assistance CODE: 02 TRANSFER TOILET: TOILET TRANSFER - STEP 1: Does the patient complete the activity by him/herself with no assistance (physical, verbal/nonverbal cueing, setup/clean-up)? No. TOILET TRANSFER - STEP 2: Does the patient need only setup/clean-up assistance from one helper? No. TOILET TRANSFER - STEP 3: Does the patient need only verbal/nonverbal cueing or touching/steadying/contact guard assistance fro m one helper? No. TOILET TRANSFER - STEP 4: Does the patient need physical assistance - for example lifting or trunk support from one helper - wi th the helper providing less than half of the effort? Yes. 1. [id number] ADMISSION PERFORMANCE: Partial/moderate assistance CODE: 03 TRANSFERS: CAR: Not assessed/no information CODE: - WALK 10 FEET: Not assessed/no information CODE: - 1 STEP (CURB): Not assessed/no information CODE: - PICKING UP OBJECT: Not assessed/no information CODE: - DOES THE PATIENT USE A WHEELCHAIR/SCOOTER? Q1. DOES THE PATIENT USE A WHEELCHAIR/SCOOTER?: Yes CODE: 1 WHEEL 50 FEET WITH TWO TURNS: WHEEL 50 FEET WITH TWO TURNS - STEP 1: Does the patient complete the activity by him/herself with no assistance (physical, verbal/nonverbal cueing, setup/clean-up)? No. WHEEL 50 FEET WITH TWO TURNS - STEP 2: Does the patient need only setup/clean-up assistance from one helper? No. WHEEL 50 FEET WITH TWO TURNS - STEP 3: Does the patient need only verbal/nonverbal cueing or touching/steadying/contact guard assistance fro m one helper? No. WHEEL 50 FEET WITH TWO TURNS - STEP 4: Does the patient need physical assistance - for example lifting or trunk support from one helper - wi th the helper providing less than half of the effort? Yes. 1. [id number] ADMISSION PERFORMANCE: Partial/moderate assistance CODE: 03 INDICATE THE TYPE OF WHEELCHAIR/SCOOTER USED: RR1. INDICATE THE TYPE OF WHEELCHAIR/SCOOTER USED.: Manual CODE: 1 WHEEL 150 FEET: WHEEL 150 FEET - STEP 1: Does the patient complete the activity by him/herself with no assistance (physical, verbal/nonverbal cueing, setup/clean-up)? No. WHEEL 150 FEET - STEP 2: Does the patient need only setup/clean-up assistance from one helper? No. WHEEL 150 FEET - STEP 3: Does the patient need only verbal/nonverbal cueing or touching/steadying/contact guard assistance fro m one helper? No. WHEEL 150 FEET - STEP 4: Does the patient need physical assistance - for example lifting or trunk support from one helper - wi th the helper providing less than half of the effort? Yes. 1. [id number] ADMISSION PERFORMANCE: Partial/moderate assistance CODE: 03 INDICATE THE TYPE OF WHEELCHAIR/SCOOTER USED: SS1. INDICATE THE TYPE OF WHEELCHAIR/SCOOTER USED.: Manual CODE: 1 BLADDER AND BOWEL: H350. BLADDER CONTINENCE (3-DAY ASSESSMENT PERIOD): Incontinent daily (at least once a day) CODE: 3 H400. BOWEL CONTINENCE (3-DAY ASSESSMENT PERIOD): Always incontinent (no episodes of continent bowel movements) CODE: 3 SIGNATURE PANEL: The following modified sections: 1. [id number] Admission Performance, 1. [id number] Admission Performance, 1. [id number] Admission Performance, 1. [id number] Admission Performance, 1. [id number] Admission Performance, 1. [id number] Admission Performance, 1. [id number] Admission Performance, 1. [id number] Admission Performance , 1. [id number] Admission Performance, 1. [id number] Admission Performance, Q1. Does the patient use a whee lchair/scooter?, 1. [id number] Admission Performance, 1. [id number] Admission Performance, RR1. Indicate th e type of wheelchair/scooter used., 1. [id number] Admission Performance, Code, 1. [id number] Admission Perf ormance, SS1. Indicate the type of wheelchair/scooter used., H350. Bladder Continence (3-day assessme nt period), H400. Bowel Continence (3-day assessment period) were [electronically] signed by Lynsey Dugan C.N.AGeraldine on FriJun 25 2020 15:50:59 GMT-0500 (Central Daylight Time)
[2020-06-25 18:54] LABS: Urine Appearance CLOUDY (Clear); Urine Bilirubin NEGATIVE (Negataive); Urine Blood NEGATIVE (Negative); Urine Color YELLOW (Yellow); Urine Glucose NEGATIVE (Negative); Urine Protein NEGATIVE (Negative); Urine Urobilinogen 0.2 mg/dL (0.2-1.0)
[2020-06-25 19:44] LABS: Urine Bacteria >50 /HPF (<20); Urine RBC <5 /HPF (NONE SEEN)
[2020-06-25] MEDS: PRAMIPEXOLE 0.25 MG TAB PO SCH (20:19)
[2020-06-26] MEDS: LIDOCAINE 4% PATCH TOP SCH (06:27)
[2020-06-26] MEDS: ACETAMINOPHEN 500 MG TAB PO PRN ×2 (06:28→19:36)
[2020-06-26] MEDS: ENOXAPARIN 30 MG/0.3 ML SQ SCH (06:28)
[2020-06-26] MEDS: FLUTICASONE 50MCG NASAL SPRAY NAS SCH (06:29)
[2020-06-26] MEDS: NYSTATIN PWDR 100000 UNIT/GM TOP SCH ×2 (06:29→19:36)
[2020-06-26 06:33] LABS: Basophils % 0.7 % (0-1.3); Hematocrit 31.6 % (36.0-45.0); Lymphocytes % 26.6 % (15.3-44.8); MPV 7.4 fL (7.6-11.3)
[2020-06-26] MEDS: POLYETHYL GLY 3350 17 GM/DOSE PO SCH (08:11)
[2020-06-26] MEDS: CRANBERRY FRUIT EXTRACT 200 MG CAP PO SCH ×2 (08:11→19:35)
[2020-06-26] MEDS: BUPROPRION HCL S R PO SCH (08:11)
[2020-06-26] MEDS: DOCUSATE NA 100 MG CAP PO SCH ×2 (08:12→19:36)
[2020-06-26] MEDS: AMLODIPINE 5 MG TAB PO SCH (08:12)
[2020-06-26] MEDS: LORATADINE 10 MG TAB PO SCH (08:12)
[2020-06-26] MEDS: POTASSIUM CL SA 10 MEQ TAB PO SCH ×2 (08:12→19:35)
[2020-06-26] MEDS: FAMOTIDINE 20 MG TAB PO SCH (08:12)
[2020-06-26] MEDS: CLOPIDOGREL 75 MG TABLET PO SCH (08:13)
[2020-06-26] MEDS: FE SULF/FA/VIT B COMP & C TAB PO SCH (08:13)
[2020-06-26] MEDS: TORSEMIDE 20 MG TAB PO SCH (08:13)
[2020-06-26] MEDS: MAGNESIUM OXIDE 400 MG TAB PO SCH ×2 (08:13→19:36)
[2020-06-26] MEDS: FERROUS SULFATE 325 MG TAB PO SCH (08:13)
--- NOTE | 2020-06-26 10:25 | RAD REPORT ---
EXAM DESCRIPTION: CT - Head Brain Wo Cont - 06/26/2020 9:46 am CLINICAL HISTORY: R/O STROKE COMPARISON: Head C Spine Mpr Wo Con dated 06/10/2020 TECHNIQUE: Axial 5 mm thick images of the head were obtained without IV contrast. All CT scans are performed using dose optimization technique as appropriate and may include automated exposure control or mA/KV adjustment according to patient size. FINDINGS: No intracranial hemorrhage, mass, edema or shift of mid-line structures. No acute cortical based infarction. No cortical edema or sulcal effacement. Atrophy changes are similar to the May omparison study. Chronic ischemic change throughout the cerebral white matter also similar to compari son. No abnormal extra-axial fluid collections. Ventricles are in proportion to the atrophy. Mastoid air cells are clear. No significant paranasal sinus finding. No acute bony findings. IMPRESSION: No intracranial hemorrhage or mass present. No acute cortical based infarction identifie d. Patient has significant chronic ischemic change in the cerebral white matter which could potentially mask a nonhemorrhagic CVA.
[2020-06-26] MEDS: ONDANSETRON 4 MG (ODT) TAB PO PRN (12:52)
[2020-06-26] MEDS: FLEET ENEMA ADULT PR PRN (15:21)
[2020-06-26] MEDS: LACTULOSE 20 GM/30 ML UCUP PO PRN (16:28)
--- NOTE | 2020-06-26 19:20 | R.PN ---
PROGRESS NOTES ENCOUNTER DATE AND TIME: 06/26/2020 19:12 (CDT) NAME DEVAN LIMA DATE OF : 1935 DATE OF ADMISSION: 06/12/2020 14:44 (CDT) R Femoralfracture CHIEF COMPLAINT: Right femur fracture SUBJECTIVE: Pt denied any depression. Pt denied any Shortness of Breath. WBC is mildly elevated to 11.3. Hgb is 10.3, prealbumin 19.7, Mg is high 2.6, glucose 93 to 137, UA shows 3+ esterase, WBC 5-10. Repeat KUB studies show retained large amounts of stool despite 3 enemas. Will continue soap suds sara ma. GI suggests constipation related to possible obstruction. Propelled a wheelchair 250' with contact guard assistance. She had a 5-10 minute episode of slurred speech, worsening confusion and slumping to the right this m orning. Head CT scan shows no acute findings. Significant chronic ischemic changes noted. 5 VITAL SIGNS Temperature: 97.4 F SBP/DBP: 151/76 Pulse: 73 Resp: 16 MEDICATION ALLERGIES: Penicillin ENVIRONMENTAL ALLERGIES: corn - Substance Allergies None Known - Other Allergies None Known NURSING: - Shower allowing shower - Skin care per protocol PRECAUTIONS: - Anterior Hip Precaution No abduction No active extension No adduction across midline No external rotation No hip flexion >90 degrees No internal rotation - Posterior Hip Precaution No adduction across midline No external rotation No hip flexion >90 degrees No internal rotation No wheel chair propulsion - Weight Bearing Precaution TTWB right LE ACTIVITIES OOB only with supervision THERAPIES: - Dietary and Nutrition Adequate Nutrition. Nutritional Education. Nutritional Supplements. PHYSICAL EXAM - Gen Alert and awake Lying in bed No apparent distress Oriented to: person, time, and place - Skin Right hip incision intact Normacephalic - Eyes No abnormalities - ENMT No abnormalities - Neck No abnormalities - CVS RRR - Resp Clear to auscultation - Abd + bowel sounds - GI Soft Deferred - No abnormalities - Ext Right hip surgical site has good hemostasis. - MSK 4+/5 weakness in right lower extremity - Neuro 4/5 strength right lower extremity - Psych No abnormalities ASSESSMENT: Pt. is a 85 yo Right-handed white female.She has past medical history significant for diabetes, HTN a nd CHF.On 06/10/2020 she was admitted to [facility] and underwent emergency surgery for R Fe moral FX (Closed Reduction, Percutaneous Pinning Right Hip) by Dr Jose.Pre-morbidly, Pt. was indepen dent/mod-I in Locomotion, Transfers Control, Self-Care, Social Cognition, Sphincter Control, and Comm unication; and she had good Balance and Safety Awareness.Currently, she has deficits of Transfers Con trol, Balance, Locomotion, Safety Awareness, Self-Care, Social Cognition, Sphincter Control, and Comm unication.Pt. is now referred to [facility] for acute in-patient rehabilitatio n in order to maximize patient's functional independence in activities of daily living, strength, ROM , and mobility.- Rehab Goal Patient has realistic goal of being discharged at assistance level 5-sup to reside at [facility] with Assistance. MDM/PLAN: - Physical Therapy Decreased range of motion - to improve, our physical therapists will perform initial evaluation of p t's status upon admission and devise an individualized program for increasing patient's Range of Gian on. Gait dysfunction - to improve, our physical therapists will perform initial evaluation of pt's statu s upon admission and devise an individualized program for Gait Training, and Wheel Chair mobility Inability to transfer - to improve, our physical therapists will perform initial evaluation of pt's status upon admission and devise an individualized program for Bed mobility Need for home safety evaluation - to improve, our physical therapists will perform initial evaluatio n of pt's status upon admission and devise an individualized program for Home Evaluation Need in caregiver upon discharge - to improve, our physical therapists will perform initial evaluati on of pt's status upon admission and devise an individualized program for Caregiver Training New precaution - to improve, our physical therapists will perform initial evaluation of pt's status upon admission and devise an individualized program for Patient precaution education Poor balance - to improve, our physical therapists will perform initial evaluation of pt's status up on admission and devise an individualized program for Balance Training Weakness - to improve, our physical therapists will perform initial evaluation of pt's status upon a dmission and devise an individualized program for Aquatic Therapy, Neuromuscular Reeducation, and Str engthening Achieving independence - to improve, our physical therapists will perform initial evaluation of pt's status upon admission and devise an individualized program for Community Reintegration Activities - Occupational Therapy ADL deficits - to improve, our occupation therapists will perform initial evaluation of pt's status upon admission and devise an individualized program for Bathing, Bed mobility, Community Reintegratio n, Cooking, Dressing, Eating, Fine Motor Skills, Grooming, Homemaking, Kitchen Mobility, Laundry, Pat ient Education, Safety Awareness, Splinting - Positioning, Transfers(Toilet, Tub, Shower), and Wheel Chair Management Cognitive deficits - to improve, our occupation therapists will perform initial evaluation of pt's s tatus upon admission and devise an individualized program for Cognition - orientation Need for rn progressive care unit - to improve, our occupation therapists will perform initial evaluation of pt's status upon admission and devise an individualized program for Caregiver Training Weakness - to improve, our occupation therapists will perform initial evaluation of pt's status upon admission and devise an individualized program for Aquatic Therapy, Balance, Endurance, UE ROM, and UE strengthening - N/A Continue see chart - Anterior Hip Precaution No abduction No active extension No adduction across midline No external rotation No hip flexion >90 degrees No internal rotation - Diet - Liquid Texture Continue Regular - Tube Feed Continue N/A - Diet Type Continue Regular - Posterior Hip Precaution No adduction across midline No external rotation No hip flexion >90 degrees No internal rotation No wheel chair propulsion - Weight Bearing Precaution TTWB right LE - Skin care per protocol - Other See attached MAR (Medication Administration Record) - Diet - Solid Texture Continue Regular - Shower allowing shower FUNCTIONAL STATUS: UPDATED AT WEEKLY TEAM CONFERENCE - Walking Same score based on distance walked: 0(N/A) - Wheelchair Same score based on distance traveled: 0(N/A) FUNCTIONAL STATUS: - Self-Care A. Eating Ind B. Grooming sup C. Bathing Ina D. Dressing - Upper sup E. Dressing - Lower Ina F. Toileting Ina - Sphincter Control G. Bladder control sup H. Bowel control sup - Transfers Control I. Bed/Chair/Wheelchair sup J. Toilet sup K. Tub/Shower Ina - Locomotion L. Walk/Wheelchair (B) Ina M. Stairs ADNO - Communication N. Comprehension (B) Ina O. Expression (B) Ina - Social Cognition P. Social Interaction Zhen Q. Problem Solving Zhen R. Memory Zhen - Endurance Fair - Balance Fair - Safety Awareness Fair QI SCORES: - Self-Care A. Eating 03-Partial/moderate assistance B. Oral hygiene 03-Partial/moderate assistance C. Toileting hygiene 01-Dependent E. Shower/bathe self 01-Dependent F. Upper body dressing 02-Substantial/maximal assistance G. Lower body dressing 88-Not attempted due to medical condition or safety concerns H. Putting on/taking off footwear 88-Not attempted due to medical condition or safety concerns - Mobility A. Roll left and right 01-Dependent B. Sit to lying 01-Dependent C. Lying to sitting on side of bed 01-Dependent D. Sit to stand 01-Dependent E. Chair/[id number] transfer 01-Dependent F. Toilet transfer 01-Dependent G. Car transfer 88-Not attempted due to medical condition or safety concerns I. Walk 10 feet 01-Dependent J. Walk 50 feet with two turns 88-Not attempted due to medical condition or safety concerns K. Walk 150 feet 88-Not attempted due to medical condition or safety concerns L. Walking 10 feet on uneven surfaces 88-Not attempted due to medical condition or safety concerns M. 1 step (curb) 88-Not attempted due to medical condition or safety concerns N. 4 steps 88-Not attempted due to medical condition or safety concerns O. 12 steps 88-Not attempted due to medical condition or safety concerns P. Picking up object 88-Not attempted due to medical condition or safety concerns R. Wheel 50 feet with two turns 88-Not attempted due to medical condition or safety concerns S. Wheel 150 feet 88-Not attempted due to medical condition or safety concerns - Endurance Poor - Balance Poor - Safety Awareness Poor CURRENT [facility] DEFICITS: Self-Care, Mobility, Endurance, Balance, and Safety Awareness SIGNATURE PANEL: (CDT)
[2020-06-26] MEDS: PRAMIPEXOLE 0.25 MG TAB PO SCH (19:35)
[2020-06-26] MEDS: MELATONIN 3 MG TABLET PO PRN (19:36)
[2020-06-27] MEDS: FLUTICASONE 50MCG NASAL SPRAY NAS SCH (06:50)
[2020-06-27] MEDS: NYSTATIN PWDR 100000 UNIT/GM TOP SCH ×2 (06:50→20:00)
[2020-06-27] MEDS: LIDOCAINE 4% PATCH TOP SCH (06:50)
[2020-06-27] MEDS: ENOXAPARIN 30 MG/0.3 ML SQ SCH (06:51)
[2020-06-27] MEDS: ACETAMINOPHEN 500 MG TAB PO PRN (07:06)
[2020-06-27] MEDS: POLYETHYL GLY 3350 17 GM/DOSE PO SCH (07:54)
[2020-06-27] MEDS: BUPROPRION HCL S R PO SCH (07:56)
[2020-06-27] MEDS: DOCUSATE NA 100 MG CAP PO SCH ×2 (07:57→20:00)
[2020-06-27] MEDS: TORSEMIDE 20 MG TAB PO SCH (07:57)
[2020-06-27] MEDS: CLOPIDOGREL 75 MG TABLET PO SCH (07:57)
[2020-06-27] MEDS: CRANBERRY FRUIT EXTRACT 200 MG CAP PO SCH ×2 (07:57→20:00)
[2020-06-27] MEDS: LORATADINE 10 MG TAB PO SCH (07:58)
[2020-06-27] MEDS: AMLODIPINE 5 MG TAB PO SCH (07:59)
[2020-06-27] MEDS: MAGNESIUM OXIDE 400 MG TAB PO SCH ×2 (08:00→20:00)
[2020-06-27] MEDS: FERROUS SULFATE 325 MG TAB PO SCH (08:00)
[2020-06-27] MEDS: POTASSIUM CL SA 10 MEQ TAB PO SCH ×2 (08:00→20:00)
[2020-06-27] MEDS: FAMOTIDINE 20 MG TAB PO SCH (08:00)
[2020-06-27] MEDS: FE SULF/FA/VIT B COMP & C TAB PO SCH (08:00)
--- NOTE | 2020-06-27 18:05 | R.PN ---
PROGRESS NOTES ENCOUNTER DATE AND TIME: 06/27/2020 18:02 (CDT) NAME DEVAN LIMA DATE OF : 1935 DATE OF ADMISSION: 06/12/2020 14:44 (CDT) R Femoralfracture CHIEF COMPLAINT: Right femur fracture SUBJECTIVE: Pt denied any depression. Pt denied any Shortness of Breath. WBC is mildly elevated to 11.3. Hgb is 10.3, prealbumin 19.7, Mg is high 2.6, glucose 72 to 118, UA shows 3+ esterase, WBC 5-10. Repeat KUB studies show retained large amounts of stool despite 3 enemas. Will continue soap suds sara ma. GI suggests constipation related to possible obstruction. Propelled a wheelchair 250' with contact guard assistance. She had a 5-10 minute episode of slurred speech, worsening confusion and slumping to the right this m orning. Head CT scan shows no acute findings. Significant chronic ischemic changes noted. 5 VITAL SIGNS Temperature: 97.7 F SBP/DBP: 138/72 Pulse: 67 Resp: 16 MEDICATION ALLERGIES: Penicillin ENVIRONMENTAL ALLERGIES: corn - Substance Allergies None Known - Other Allergies None Known NURSING: - Shower allowing shower - Skin care per protocol PRECAUTIONS: - Anterior Hip Precaution No abduction No active extension No adduction across midline No external rotation No hip flexion >90 degrees No internal rotation - Posterior Hip Precaution No adduction across midline No external rotation No hip flexion >90 degrees No internal rotation No wheel chair propulsion - Weight Bearing Precaution TTWB right LE ACTIVITIES OOB only with supervision THERAPIES: - Dietary and Nutrition Adequate Nutrition. Nutritional Education. Nutritional Supplements. PHYSICAL EXAM - Gen Alert and awake Lying in bed No apparent distress Oriented to: person, time, and place - Skin Right hip incision intact Normacephalic - Eyes No abnormalities - ENMT No abnormalities - Neck No abnormalities - CVS RRR - Resp Clear to auscultation - Abd + bowel sounds - GI Soft Deferred - No abnormalities - Ext Right hip surgical site has good hemostasis. - MSK 4+/5 weakness in right lower extremity - Neuro 4/5 strength right lower extremity - Psych No abnormalities ASSESSMENT: Pt. is a 85 yo Right-handed white female.She has past medical history significant for diabetes, HTN a nd CHF.On 06/10/2020 she was admitted to [facility] and underwent emergency surgery for R Fe moral FX (Closed Reduction, Percutaneous Pinning Right Hip) by Dr Jose.Pre-morbidly, Pt. was indepen dent/mod-I in Locomotion, Transfers Control, Self-Care, Social Cognition, Sphincter Control, and Comm unication; and she had good Balance and Safety Awareness.Currently, she has deficits of Transfers Con trol, Balance, Locomotion, Safety Awareness, Self-Care, Social Cognition, Sphincter Control, and Comm unication.Pt. is now referred to [facility] for acute in-patient rehabilitatio n in order to maximize patient's functional independence in activities of daily living, strength, ROM , and mobility.- Rehab Goal Patient has realistic goal of being discharged at assistance level 5-sup to reside at [facility] with Assistance. MDM/PLAN: - Physical Therapy Decreased range of motion - to improve, our physical therapists will perform initial evaluation of p t's status upon admission and devise an individualized program for increasing patient's Range of Gian on. Gait dysfunction - to improve, our physical therapists will perform initial evaluation of pt's statu s upon admission and devise an individualized program for Gait Training, and Wheel Chair mobility Inability to transfer - to improve, our physical therapists will perform initial evaluation of pt's status upon admission and devise an individualized program for Bed mobility Need for home safety evaluation - to improve, our physical therapists will perform initial evaluatio n of pt's status upon admission and devise an individualized program for Home Evaluation Need in caregiver upon discharge - to improve, our physical therapists will perform initial evaluati on of pt's status upon admission and devise an individualized program for Caregiver Training New precaution - to improve, our physical therapists will perform initial evaluation of pt's status upon admission and devise an individualized program for Patient precaution education Poor balance - to improve, our physical therapists will perform initial evaluation of pt's status up on admission and devise an individualized program for Balance Training Weakness - to improve, our physical therapists will perform initial evaluation of pt's status upon a dmission and devise an individualized program for Aquatic Therapy, Neuromuscular Reeducation, and Str engthening Achieving independence - to improve, our physical therapists will perform initial evaluation of pt's status upon admission and devise an individualized program for Community Reintegration Activities - Occupational Therapy ADL deficits - to improve, our occupation therapists will perform initial evaluation of pt's status upon admission and devise an individualized program for Bathing, Bed mobility, Community Reintegratio n, Cooking, Dressing, Eating, Fine Motor Skills, Grooming, Homemaking, Kitchen Mobility, Laundry, Pat ient Education, Safety Awareness, Splinting - Positioning, Transfers(Toilet, Tub, Shower), and Wheel Chair Management Cognitive deficits - to improve, our occupation therapists will perform initial evaluation of pt's s tatus upon admission and devise an individualized program for Cognition - orientation Need for healthcare network pricing consultant - to improve, our occupation therapists will perform initial evaluation of pt's status upon admission and devise an individualized program for Caregiver Training Weakness - to improve, our occupation therapists will perform initial evaluation of pt's status upon admission and devise an individualized program for Aquatic Therapy, Balance, Endurance, UE ROM, and UE strengthening - N/A Continue see chart - Anterior Hip Precaution No abduction No active extension No adduction across midline No external rotation No hip flexion >90 degrees No internal rotation - Diet - Liquid Texture Continue Regular - Tube Feed Continue N/A - Diet Type Continue Regular - Posterior Hip Precaution No adduction across midline No external rotation No hip flexion >90 degrees No internal rotation No wheel chair propulsion - Weight Bearing Precaution TTWB right LE - Skin care per protocol - Other See attached MAR (Medication Administration Record) - Diet - Solid Texture Continue Regular - Shower allowing shower FUNCTIONAL STATUS: UPDATED AT WEEKLY TEAM CONFERENCE - Walking Same score based on distance walked: 0(N/A) - Wheelchair Same score based on distance traveled: 0(N/A) FUNCTIONAL STATUS: - Self-Care A. Eating Ind B. Grooming sup C. Bathing Ina D. Dressing - Upper sup E. Dressing - Lower Ina F. Toileting Ina - Sphincter Control G. Bladder control sup H. Bowel control sup - Transfers Control I. Bed/Chair/Wheelchair sup J. Toilet sup K. Tub/Shower Ina - Locomotion L. Walk/Wheelchair (B) Ina M. Stairs ADNO - Communication N. Comprehension (B) Ina O. Expression (B) Ina - Social Cognition P. Social Interaction Zhen Q. Problem Solving Zhen R. Memory Zhen - Endurance Fair - Balance Fair - Safety Awareness Fair QI SCORES: - Self-Care A. Eating 03-Partial/moderate assistance B. Oral hygiene 03-Partial/moderate assistance C. Toileting hygiene 01-Dependent E. Shower/bathe self 01-Dependent F. Upper body dressing 02-Substantial/maximal assistance G. Lower body dressing 88-Not attempted due to medical condition or safety concerns H. Putting on/taking off footwear 88-Not attempted due to medical condition or safety concerns - Mobility A. Roll left and right 01-Dependent B. Sit to lying 01-Dependent C. Lying to sitting on side of bed 01-Dependent D. Sit to stand 01-Dependent E. Chair/kko-ly-mcruv transfer 01-Dependent F. Toilet transfer 01-Dependent G. Car transfer 88-Not attempted due to medical condition or safety concerns I. Walk 10 feet 01-Dependent J. Walk 50 feet with two turns 88-Not attempted due to medical condition or safety concerns K. Walk 150 feet 88-Not attempted due to medical condition or safety concerns L. Walking 10 feet on uneven surfaces 88-Not attempted due to medical condition or safety concerns M. 1 step (curb) 88-Not attempted due to medical condition or safety concerns N. 4 steps 88-Not attempted due to medical condition or safety concerns O. 12 steps 88-Not attempted due to medical condition or safety concerns P. Picking up object 88-Not attempted due to medical condition or safety concerns R. Wheel 50 feet with two turns 88-Not attempted due to medical condition or safety concerns S. Wheel 150 feet 88-Not attempted due to medical condition or safety concerns - Endurance Poor - Balance Poor - Safety Awareness Poor CURRENT [facility]. DEFICITS: Self-Care, Mobility, Endurance, Balance, and Safety Awareness SIGNATURE PANEL: (CDT)
[2020-06-27] MEDS: PRAMIPEXOLE 0.25 MG TAB PO SCH (20:54)
[2020-06-28] MEDS: CRANBERRY FRUIT EXTRACT 200 MG CAP PO SCH ×3 (08:00→20:00)
[2020-06-28] MEDS: FE SULF/FA/VIT B COMP & C TAB PO SCH (08:00)
[2020-06-28] MEDS: BUPROPRION HCL S R PO SCH (08:00)
[2020-06-28] MEDS: MAGNESIUM OXIDE 400 MG TAB PO SCH ×3 (08:00→20:00)
[2020-06-28] MEDS: POLYETHYL GLY 3350 17 GM/DOSE PO SCH (08:00)
[2020-06-28] MEDS: TORSEMIDE 20 MG TAB PO SCH ×2 (08:00→13:00)
[2020-06-28] MEDS: FAMOTIDINE 20 MG TAB PO SCH (08:00)
[2020-06-28] MEDS: LORATADINE 10 MG TAB PO SCH (08:00)
[2020-06-28] MEDS: POTASSIUM CL SA 10 MEQ TAB PO SCH ×3 (08:00→20:00)
[2020-06-28] MEDS: DOCUSATE NA 100 MG CAP PO SCH ×3 (08:00→20:00)
[2020-06-28] MEDS: FERROUS SULFATE 325 MG TAB PO SCH (08:00)
[2020-06-28 08:18] LABS: Absolute Lymphocytes (CBC) 2.4 K/uL (0.7-4.9); Basophils % 0.6 % (0-1.3); Hematocrit 33.2 % (36.0-45.0); Lymphocytes % 25.2 % (15.3-44.8); MPV 7.3 fL (7.6-11.3); RBC Red Blood Cell Count 3.78 M/uL (3.86-4.86)
[2020-06-28 08:34] LABS: Albumin 3.3 g/dL (3.4-5.0); Magnesium 3.2 mg/dL (1.8-2.4); Prealbumin 19.9 mg/dL (20-40)
[2020-06-28] MEDS: FLUTICASONE 50MCG NASAL SPRAY NAS SCH (08:48)
[2020-06-28] MEDS: LIDOCAINE 4% PATCH TOP SCH (08:49)
--- NOTE | 2020-06-28 09:44 | P.RH.PN ---
Estimated Length of Stay: 18 Expected Discharge Date: 06/29/20 Discharge Disposition Plan: Home Family Support: Yes Longterm Goal: Mobility, Transfers, Self Care Vital Signs: Last Vital Signs Temp 98 F 06/28/20 07:09 Pulse 71 06/28/20 07:09 Resp 18 06/28/20 07:09 BP 142/83 H 06/28/20 07:09 Pulse Ox 98 06/28/20 07:09 Laboratory: Laboratory Last Values WBC 9.50 K/uL (4.3-10.9) D 06/28/20 08:06 RBC 3.78 M/uL (3.86-4.86) L 06/28/20 08:06 Hgb 11.0 g/dL (12.0-15.0) L 06/28/20 08:06 Hct 33.2 % (36.0-45.0) L 06/28/20 08:06 MCV 87.8 fL (80-100) 06/28/20 08:06 MCH 29.0 pg (27.0-35.0) 06/28/20 08:06 MCHC 33.0 g/dL (32.0-36.0) 06/28/20 08:06 RDW 15.7 % (12.1-15.2) H 06/28/20 08:06 Plt Count 504 K/uL (152-406) H 06/28/20 08:06 MPV 7.3 fL (7.6-11.3) L 06/28/20 08:06 Neutrophils % 64.3 % (41.7-73.7) 06/28/20 08:06 Lymphocytes % 25.2 % (15.3-44.8) 06/28/20 08:06 Monocytes % 7.2 % (3.3-12.3) 06/28/20 08:06 Eosinophils % 2.7 % (0-4.4) 06/28/20 08:06 Basophils % 0.6 % (0-1.3) 06/28/20 08:06 Absolute Neutrophils 6.1 K/uL (1.8-8.0) 06/28/20 08:06 Absolute Lymphocytes 2.4 K/uL (0.7-4.9) 06/28/20 08:06 Absolute Monocytes 0.7 K/uL (0.1-1.3) 06/28/20 08:06 Absolute Eosinophils 0.3 K/uL (0-0.5) 06/28/20 08:06 Absolute Basophils 0.1 K/uL (0-0.5) 06/28/20 08:06 Sodium 140 mmol/L (136-145) 06/28/20 08:06 Potassium 4.0 mmol/L (3.5-5.1) 06/28/20 08:06 Chloride 108 mmol/L (98-107) H 06/28/20 08:06 Carbon Dioxide 27 mmol/L (21-32) 06/28/20 08:06 BUN 20 mg/dL (7-18) H 06/28/20 08:06 Creatinine 1.76 mg/dL (0.55-1.3) H 06/28/20 08:06 Estimated GFR 28 mL/min (=/>90) L 06/28/20 08:06 Glucose 98 mg/dL (74-106) 06/28/20 08:06 POC Glucose 72 mg/dL (65-120) 06/28/20 06:34 Calcium 9.9 mg/dL (8.5-10.1) 06/28/20 08:06 Magnesium 3.2 mg/dL (1.8-2.4) H D 06/28/20 08:06 Total Bilirubin 0.3 mg/dL (0.2-1.0) 06/20/20 16:24 Direct Bilirubin < 0.1 mg/dL (0-0.2) 06/20/20 16:24 AST 14 U/L (15-37) L 06/20/20 16:24 ALT 16 U/L (12-78) 06/20/20 16:24 Alkaline Phosphatase 102 U/L (45-117) 06/20/20 16:24 Serum Total Protein 7.8 g/dL (6.4-8.2) 06/20/20 16:24 Albumin 3.3 g/dL (3.4-5.0) L 06/28/20 08:06 Globulin 4.6 g/dL (2.3-3.5) H 06/20/20 16:24 Albumin/Globulin Ratio 0.7 (1.1-1.8) L 06/20/20 16:24 Prealbumin 19.9 mg/dL (20-40) L 06/28/20 08:06 Urine Color Yellow (Yellow) 06/25/20 18:10 Urine Appearance Cloudy (Clear) 06/25/20 18:10 Urine pH 8.0 (5.0-7.0) H 06/25/20 18:10 Ur Specific [place] 1.010 (1.005-1.030) 06/25/20 18:10 Glucose (UA)(Auto) Negative (Negative) 06/25/20 18:10 Urine Ketones Negative (Negative) 06/25/20 18:10 Urine Blood Negative (Negative) 06/25/20 18:10 Urine Nitrite Negative (Negative) 06/25/20 18:10 Urine Bilirubin Negative (Negataive) 06/25/20 18:10 Urine Urobilinogen 0.2 mg/dL (0.2-1.0) 06/25/20 18:10 Ur Leukocyte Esterase Negative (Negative) 06/25/20 18:10 Urine RBC <5 /HPF (NONE SEEN) 06/25/20 18:10 Urine WBC <5 /HPF (<5) 06/25/20 18:10 Ur Squamous Epith Cells <5 /HPF (NONE SEEN) 06/25/20 18:10 Urine Bacteria >50 /HPF (<20) H 06/25/20 18:10 Urine Mucus 1+ /HPF (NONE SEEN) 06/12/20 21:04 Urine Culture Reflexed Not needed 06/25/20 18:10 Urine Total Protein Negative (Negative) 06/25/20 18:10 SARS-CoV-2 RNA (RT-PCR) Negative (NEGATIVE) 06/27/20 10:35 Weight: 143 lb 1.6 oz Wound Present: No Closed Surgical Incision Present: Yes Negative Pressure Wound Therapy Present: No Physician Update: Labs are stable. She is making slow progress with cogntive improvement due to moderate dementia. Not walking and is at maximum assistance with difficulty keeping weight bearing status. She will go to [facility] for shelter on 06/29/20. Functional Improvement: Patient has improved w/ WC propulsion and seated ther ex., however continues to present w/ difficulty w/ transfers, due to cognition issues. Summary: Patient's care plan and halfway goals have been reviewed and revised as necessary. Please see the Rehabilitation Signature page for all necessary signatures.
[2020-06-28] MEDS: ENOXAPARIN 30 MG/0.3 ML SQ SCH (10:36)
[2020-06-28] MEDS ORDERED: NA CHLORIDE 0.9% 1,000 ML IV SCH (13:00)
[2020-06-28] MEDS: CLOPIDOGREL 75 MG TABLET PO SCH (13:16)
[2020-06-28] MEDS: AMLODIPINE 5 MG TAB PO SCH (13:17)
[2020-06-28] MEDS: NYSTATIN PWDR 100000 UNIT/GM TOP SCH ×3 (13:17→20:00)
--- NOTE | 2020-06-28 13:23 | RAD REPORT ---
EXAM DESCRIPTION: RAD - Colon Barium Enema - 06/28/2020 1:03 pm CLINICAL HISTORY: Chronic obstipation COMPARISON: No comparisons FINDINGS: A therapeutic Gastrografin enema was performed. Prosthodontist/Owner image demonstrates no bowel obstruct ion with prominent retained stool. A rectal tube was placed and Gastrografin in a diluted mixture was infused into the colon. Gastrograf in was seen to reach the transverse colon prior to patient complaining of pain and discomfort. There was significant retained stool seen in the descending colon. Total fluoro time: 1.5 minute Number of images acquired: 8 IMPRESSION: Therapeutic Gastrografin enema was performed as detailed above.
--- NOTE | 2020-06-28 17:51 | P.PN ---
Subjective Date of Service: 06/28/20 Chief Complaint: constipation / obstipation, occasional mild nausea Subjective: Improving (Had gastrograffin enema today to transverse colon.) Physical Examination - Vital Signs Temperature: 98 F Blood Pressure: 142/83 Pulse: 71 Respirations: 18 Pulse Ox (%): 98 - Studies Laboratory Data (last 24 hrs) 06/28/20 08:06: Sodium 140, Potassium 4.0, BUN 20 H, Creatinine 1.76 H, Glucose 98, Magnesium 3.2 H D 06/28/20 08:06: WBC 9.50 D, Hgb 11.0 L, Hct 33.2 L, Plt Count 504 H Assessment And Plan - Current Problems (Diagnosis) (1) Constipation Current Visit: Yes Status: Acute (2) Obstipation Current Visit: Yes Status: Acute - Plan REC: 1) monitor for stools after gastrograffin enema today 2) monitor electrolytes
[2020-06-28] MEDS: PRAMIPEXOLE 0.25 MG TAB PO SCH ×2 (19:34→21:00)
[2020-06-29 06:13] LABS: Absolute Lymphocytes (CBC) 2.6 K/uL (0.7-4.9); Basophils % 0.7 % (0-1.3); Hematocrit 31.7 % (36.0-45.0); Lymphocytes % 24.7 % (15.3-44.8); MPV 7.5 fL (7.6-11.3); RBC Red Blood Cell Count 3.62 M/uL (3.86-4.86)
[2020-06-29 06:14] LABS: Magnesium 2.9 mg/dL (1.8-2.4); Phosphorus 3.2 mg/dL (2.5-4.9); Potassium 3.8 mmol/L (3.5-5.1)
[2020-06-29] MEDS: LIDOCAINE 4% PATCH TOP SCH (06:25)
[2020-06-29] MEDS: NYSTATIN PWDR 100000 UNIT/GM TOP SCH ×2 (06:26→20:00)
[2020-06-29] MEDS: ENOXAPARIN 30 MG/0.3 ML SQ SCH (06:26)
[2020-06-29] MEDS: FLUTICASONE 50MCG NASAL SPRAY NAS SCH (06:27)
[2020-06-29] MEDS: BUPROPRION HCL S R PO SCH (07:41)
[2020-06-29] MEDS: POLYETHYL GLY 3350 17 GM/DOSE PO SCH (07:47)
[2020-06-29] MEDS: DOCUSATE NA 100 MG CAP PO SCH ×2 (07:47→20:00)
[2020-06-29] MEDS: TORSEMIDE 20 MG TAB PO SCH (07:47)
[2020-06-29] MEDS: CRANBERRY FRUIT EXTRACT 200 MG CAP PO SCH ×2 (07:47→20:00)
[2020-06-29] MEDS: FAMOTIDINE 20 MG TAB PO SCH (07:48)
[2020-06-29] MEDS: POTASSIUM CL SA 10 MEQ TAB PO SCH ×2 (07:48→20:00)
[2020-06-29] MEDS: AMLODIPINE 5 MG TAB PO SCH (07:48)
[2020-06-29] MEDS: CLOPIDOGREL 75 MG TABLET PO SCH (07:49)
[2020-06-29] MEDS: FERROUS SULFATE 325 MG TAB PO SCH (07:49)
[2020-06-29] MEDS: MAGNESIUM OXIDE 400 MG TAB PO SCH ×2 (07:49→20:00)
[2020-06-29] MEDS: LORATADINE 10 MG TAB PO SCH (07:49)
[2020-06-29] MEDS: FE SULF/FA/VIT B COMP & C TAB PO SCH (07:49)
[2020-06-29] MEDS: LACTULOSE 20 GM/30 ML UCUP PO PRN (14:54)
[2020-06-29] MEDS ORDERED: GOLYTELY 4000 ML PO SCH (18:00)
--- NOTE | 2020-06-29 18:17 | P.PN ---
Subjective Date of Service: 06/29/20 Chief Complaint: constipation / obstipation, occasional mild nausea Subjective: No new changes (S/p gastrograffin enema yesterday with significant stool in the descending colon without defecation since procedure, as per RN report. Gastrograffin possibly diluted too much during procedure. She is able to tolerate po diet.) Physical Examination - Vital Signs Temperature: 97.4 F Blood Pressure: 165/91 Pulse: 81 Respirations: 16 Pulse Ox (%): 96 - Studies Laboratory Data (last 24 hrs) 06/29/20 05:50: Sodium 144, Potassium 3.8, BUN 18, Creatinine 1.51 H, Glucose 88, Phosphorus 3.2, Magnesium 2.9 H 06/29/20 05:50: WBC 10.60, Hgb 10.4 L, Hct 31.7 L, Plt Count 456 H Microbiology Data (last 24 hrs): 06/25/20 18:10 Catheterized Urine [place] Count - Final >100,000 CFU/ML. 06/25/20 18:10 Catheterized Urine - Final Enterobacter Cloacae Escherichia Coli Enterococcus Faecalis Gram Neg Francisco Streptococcus Species Assessment And Plan - Current Problems (Diagnosis) (1) Constipation Current Visit: Yes Status: Acute (2) Obstipation Current Visit: Yes Status: Acute - Plan REC: 1) Go-Lytely now 2) monitor electrolytes 3) continue po diet
[2020-06-29] MEDS: PRAMIPEXOLE 0.25 MG TAB PO SCH (21:00)
[2020-06-30] MEDS: FLUTICASONE 50MCG NASAL SPRAY NAS SCH (06:30)
[2020-06-30] MEDS: NYSTATIN PWDR 100000 UNIT/GM TOP SCH (06:30)
[2020-06-30] MEDS: LIDOCAINE 4% PATCH TOP SCH (06:30)
[2020-06-30] MEDS: ENOXAPARIN 30 MG/0.3 ML SQ SCH (06:30)
[2020-06-30] MEDS: POLYETHYL GLY 3350 17 GM/DOSE PO SCH (07:58)
[2020-06-30] MEDS: FE SULF/FA/VIT B COMP & C TAB PO SCH (07:59)
[2020-06-30] MEDS: CRANBERRY FRUIT EXTRACT 200 MG CAP PO SCH (07:59)
[2020-06-30] MEDS: LORATADINE 10 MG TAB PO SCH (08:00)
[2020-06-30] MEDS: BUPROPRION HCL S R PO SCH (08:00)
[2020-06-30] MEDS: DOCUSATE NA 100 MG CAP PO SCH (08:00)
[2020-06-30] MEDS: POTASSIUM CL SA 10 MEQ TAB PO SCH (08:00)
[2020-06-30] MEDS: FAMOTIDINE 20 MG TAB PO SCH (08:00)
[2020-06-30] MEDS: MAGNESIUM OXIDE 400 MG TAB PO SCH (08:00)
[2020-06-30] MEDS: TORSEMIDE 20 MG TAB PO SCH (08:00)
[2020-06-30] MEDS: CLOPIDOGREL 75 MG TABLET PO SCH (08:01)
[2020-06-30] MEDS: FERROUS SULFATE 325 MG TAB PO SCH (08:01)
[2020-06-30] MEDS: AMLODIPINE 5 MG TAB PO SCH (08:01)
[2020-06-30 08:02] VITALS: BP 164/81
[2020-06-30 08:04] VITALS: TEMP 96.9
--- NOTE | 2020-06-30 10:19 | R.DS ---
DISCHARGE SUMMARY FACILITY [facility] MR# [id number] NAME DEVAN LIMA ADDRESS [address] [place] [address] [address] [id number] PHONE DATE OF 1935 AGE 85 RO[id number] SSN# [id number] GENDER Female DEXTERITY Right-handed MARITAL STATUS RACE White ENCOUNTER PHYSICIAN Dr. Tong Mcgarry REFERRING DOCTOR Dr. Mcgarry REFERRING FACILITY [facility] DISCHARGE DIAGNOSIS: - Orthopaedic Disorders 08 - Unilateral Hip Fracture (08.11) R Femoralfracture . DATE OF ADMISSION 06/12/2020 14:44 (CDT) MEDICATION ALLERGIES: Penicillin ENVIRONMENTAL ALLERGIES: corn - Substance Allergies None Known - Other Allergies None Known DISCHARGE MEDICATIONS: - Continue see chart. NURSING: - Shower allowing shower - Skin care per protocol PRECAUTIONS: - Anterior Hip Precaution No abduction No active extension No adduction across midline No external rotation No hip flexion >90 degrees No internal rotation - Posterior Hip Precaution No adduction across midline No external rotation No hip flexion >90 degrees No internal rotation No wheel chair propulsion - Weight Bearing Precaution TTWB right LE ACTIVITIES OOB only with supervision THERAPIES: - Dietary and Nutrition Adequate Nutrition Nutritional Education Nutritional Supplements HISTORY OF PRESENT ILLNESS: Pt. is a 85 yo Right-handed white female.She has past medical history significant for diabetes, HTN a nd CHF.On 06/10/2020 she was admitted to [facility] and underwent emergency surgery for R Fe moral FX (Closed Reduction, Percutaneous Pinning Right Hip) by Dr Jose.Pre-morbidly, Pt. was indepen dent/mod-I in Locomotion, Transfers Control, Self-Care, Social Cognition, Sphincter Control, and Comm unication; and she had good Balance and Safety Awareness.Currently, she has deficits of Transfers Con trol, Balance, Locomotion, Safety Awareness, Self-Care, Social Cognition, Sphincter Control, and Comm unication.Pt. is now referred to [facility] for acute in-patient rehabilitatio n in order to maximize patient's functional independence in activities of daily living, strength, ROM , and mobility.- Rehab Goal Patient has realistic goal of being discharged at assistance level 5-sup to reside at [facility] with Assistance. HOSPITAL COURSE: ANTERIOR HIP PRECAUTION: On 06/12/2020 the following precautions were added for the patient: Anterior Hip Precaution - No inte rnal rotation, Anterior Hip Precaution - No adduction across midline, Anterior Hip Precaution - No ac tive extension, Anterior Hip Precaution - No abduction, Anterior Hip Precaution - No hip flexion >90 degrees, and Anterior Hip Precaution - No external rotation. On 06/15/2020 the following precautions were added for the patient: Anterior Hip Precaution - No abd uction, Anterior Hip Precaution - No active extension, Anterior Hip Precaution - No adduction acros s midline, Anterior Hip Precaution - No external rotation, Anterior Hip Precaution - No hip flexion >90 degrees, and Anterior Hip Precaution - No internal rotation. The following precautions were removed for the patient: Anterior Hip Precaution - No abduction, Anter ior Hip Precaution - No active extension, Anterior Hip Precaution - No adduction across midline, Ante rior Hip Precaution - No external rotation, Anterior Hip Precaution - No hip flexion >90 degrees, Ant erior Hip Precaution - No internal rotation, Anterior Hip Precaution - No abduction, Anterior Hip Pr ecaution - No active extension, Anterior Hip Precaution - No adduction across midline, Anterior Hip Precaution - No external rotation, Anterior Hip Precaution - No hip flexion >90 degrees, and Anter ior Hip Precaution - No internal rotation. On 06/12/2020 the following precautions were added for the patient: Posterior Hip Precaution - No ext ernal rotation, Posterior Hip Precaution - No internal rotation, Posterior Hip Precaution - No hip fl exion >90 degrees, Posterior Hip Precaution - No wheel chair propulsion, and Posterior Hip Precaution - No adduction across midline. On 06/15/2020 the following precautions were added for the patient: Posterior Hip Precaution - No ad duction across midline, Posterior Hip Precaution - No external rotation, Posterior Hip Precaution - No hip flexion >90 degrees, Posterior Hip Precaution - No internal rotation, and Posterior Hip Prec aution - No wheel chair propulsion. The following precautions were removed for the patient: Posterior Hip Precaution - No adduction acros s midline, Posterior Hip Precaution - No external rotation, Posterior Hip Precaution - No hip flexion >90 degrees, Posterior Hip Precaution - No internal rotation, Posterior Hip Precaution - No wheel ch air propulsion, Posterior Hip Precaution - No adduction across midline, Posterior Hip Precaution - No external rotation, Posterior Hip Precaution - No hip flexion >90 degrees, Posterior Hip Precautio n - No internal rotation, and Posterior Hip Precaution - No wheel chair propulsion. On 06/12/2020 the following precautions were added for the patient: Weight Bearing Precaution - TTWB right LE. On 06/13/2020 the following precautions were added for the patient: Weight Bearing Precaution - TTWB right LE. On 06/15/2020 the following precautions were removed for the patient: Weight Bearing Precaution - TT WB right LE. On 06/19/2020 the following precautions were added for the patient: Weight Bearing Precaution - TTWB right LE. DIET - LIQUID TEXTURE: On 06/12/2020 Pt was upgraded to Regular Diet - Liquid Texture. DIET - SOLID TEXTURE: On 06/12/2020 Pt was upgraded to Regular Diet - Solid Texture. DIET TYPE: On 06/12/2020 Pt was upgraded to Regular Diet Type. POSTERIOR HIP PRECAUTION: TUBE FEED: On 06/12/2020 Pt was changed to N/A Tube Feed. WEIGHT BEARING PRECAUTION: DISCHARGE PHYSICAL EXAM - Gen Alert and awake Lying in bed No apparent distress Oriented to: person, time, and place - Skin Right hip incision intact Normacephalic - Eyes No abnormalities - ENMT No abnormalities - Neck No abnormalities - CVS RRR - Resp Clear to auscultation - Abd + bowel sounds - GI Soft Deferred - No abnormalities - Ext Right hip surgical site has good hemostasis. - MSK 4+/5 weakness in right lower extremity - Neuro 4/5 strength right lower extremity - Psych No abnormalities QI SCORES: - Self-Care A. Eating 03-Partial/moderate assistance B. Oral hygiene 03-Partial/moderate assistance C. Toileting hygiene 01-Dependent E. Shower/bathe self 01-Dependent F. Upper body dressing 02-Substantial/maximal assistance G. Lower body dressing 88-Not attempted due to medical condition or safety concerns H. Putting on/taking off footwear 88-Not attempted due to medical condition or safety concerns - Mobility A. Roll left and right 01-Dependent B. Sit to lying 01-Dependent C. Lying to sitting on side of bed 01-Dependent D. Sit to stand 01-Dependent E. Chair/feb-gr-lvfcc transfer 01-Dependent F. Toilet transfer 01-Dependent G. Car transfer 88-Not attempted due to medical condition or safety concerns I. Walk 10 feet 01-Dependent J. Walk 50 feet with two turns 88-Not attempted due to medical condition or safety concerns K. Walk 150 feet 88-Not attempted due to medical condition or safety concerns L. Walking 10 feet on uneven surfaces 88-Not attempted due to medical condition or safety concerns M. 1 step (curb) 88-Not attempted due to medical condition or safety concerns N. 4 steps 88-Not attempted due to medical condition or safety concerns O. 12 steps 88-Not attempted due to medical condition or safety concerns P. Picking up object 88-Not attempted due to medical condition or safety concerns R. Wheel 50 feet with two turns 88-Not attempted due to medical condition or safety concerns S. Wheel 150 feet 88-Not attempted due to medical condition or safety concerns - Endurance Poor - Balance Poor - Safety Awareness Poor DISCHARGE INSTRUCTIONS: - N/A FOLLOW_UP WITH DR. JOSE AND DR. BARONE. DISCHARGE PLAN, FOLLOW UP CARE PROVISIONS: - Estimated Length of Stay (days) 14. - Consensus on plan Discharge plan has been discussed with primary caregiver. Patient/Family is in agreement with the delmer n. Primary caregiver is in agreement with the plan. - Patient/Family Goals Return home with assistance. - Planned Living Setting Upon Discharge To [facility], to live with Assistance. SIGNATURE PANEL: (CDT)
--- NOTE | 2020-07-02 16:06 | CON ---
Date of Consultation: 06/27/2020 Reason For Consultation: Probable constipation, obstipation, mild abdominal distention. History Of Present Illness: The patient is an 85-year-old white female with recent right hip fractur e, on rehab floor now, called to see the patient due to severe constipation with probable obstipation . The patient has failed Colace, MiraLAX, Fleet enemas, soapsuds enemas. She has some nausea and vo miting. Last colonoscopy was plus 7 years ago in [place], [place] with colon polyps removed, but wa s incomplete with increased stool noted in colon at the time of that colonoscopy as per daughter. Th e patient also suffered a right femur fracture recently, had that repaired, falling backwards and natalia ded on the right side. The patient also has history of congestive heart failure, diuretic . She has never had a cardiac stent placed, it looks like. Past Medical History: Significant for hypertension, diabetes, congestive heart failure. Allergies: NKDA. Medications: See list. Social History: , 2 daughters. No tobacco. No alcohol. Family History: Father of appendectomy when she was 4 years old. Mother of old age at age 92. Review of Systems: The patient has constipation and obstipation; failed on Colace, MiraLAX, Fleet enemas. She does have nausea, vomiting. She denies any melena, hematochezia, hematemesis, coffee-ground emesis, hematuria , dysuria, polydipsia, chest pain, shortness of breath, seizure, syncope, lower extremity edema, musc le aches, joint aches. She does have some hip joint problems with a fracture, but other than that, s he has no backaches or muscle aches. Physical Examination: Vital Signs: The patient is 5 feet 3 inches, 143, BMI 25.3 kg/m2, temperature of 97.7 degrees Fahren heit, pulse 67, respirations 18, blood pressure 130/72, O2 saturation 99%. HEENT: Normocephalic, atraumatic. Anicteric. Pupils equal, round, and reactive to light. Extraocu lar movements intact. Oropharynx clear. Neck: Supple. No masses. Respirations: Clear to auscultation bilaterally. Cardiac: Regular rate and rhythm. No gallop. Abdomen: Positive bowel sounds. Soft, nontender. No hepatosplenomegaly. She had some mild distent ion, mild tympany, obese as well. Extremities: No clubbing, cyanosis, or edema. 2+ pulses. Neuro: Alert and oriented x3. Grossly nonfocal. 5/5 motor, sensation intact to light touch. Laboratory Data: The patient has a white count of 11.3, hemoglobin of 10.3, hematocrit 32, MCV of 88 , platelets of 505, polys of 62%, lymphocytes 26.7%, monocytes 7%, eosinophils 3%. She had a PT of 1 2.3, INR of 1.1, PTT of 28.9. She had yesterday sodium 142, potassium 4.0, chloride 108, bicarb 29, BUN of 18, creatinine of 1.63, glucose 91, calcium 9.7. UA on the 9th is negative. COVID-19 tests o n 8th and 11th that were negative. Impression: 1.Constipation and obstipation; failed Colace, MiraLAX, Fleet enemas and soapsuds enema; nausea; vom iting. Last colonoscopy 7 years ago in [place] which showed colon polyp, also incomplete with inc reased stool noted in colon at that time. 2.Right hip fracture with surgery. 3.History of diabetes, hypertension, hypothyroidism, chronic constipation. She has had 2-3 hospital admissions due to colitis, bilateral knee replacements, cholecystectomy, hysterectomy with bilateral salpingo-oophorectomy, rotator cuff surgery, and bladder lift x3. Recommendations: 1.Gastrografin enema, laxative therapy with MiraLAX with aggressive once constipation relieved. 2.Increase fiber in diet. 3.Physical therapy. 4.GI Clinic followup for chronic problematic constipation. RICHA/RAUL Voice ID: [id number] Report ID: [id number]
== END 2020-06-30 15:20 | DRG 561 ==
LOC: 5TH 14:44
PROVIDERS: ADMIT Psychiatry & Neurology Neurology with Special Qualifications in Child Neurology; ATTEND Psychiatry & Neurology Neurology with Special Qualifications in Child Neurology
DX: S72.91XD Unspecified fracture of right femur, subsequent encounter for closed fracture with routine healing (principal); E11.9 Type 2 diabetes mellitus without complications; I10 Essential (primary) hypertension; G31.84 Mild cognitive impairment of uncertain or unknown etiology; K59.00 Constipation, unspecified; Z96.653 Presence of artificial knee joint, bilateral; Z90.49 Acquired absence of other specified parts of digestive tract; Z90.710 Acquired absence of both cervix and uterus; Z88.0 Allergy status to penicillin; Z20.822 Contact with and (suspected) exposure to COVID-19
CPT/HCPCS: 36415; 70450; 74018; 74270; 80048; 80076; 81001; 82040; 82947; 83735; 84100; 84134; 85025; 87077; 87086; 87088; 87186; 92523; 92526; 92610; 97110; 97112; 97116; 97127; 97161; 97530; J1650; J7030; U0002; U0003